=== PATIENT | female | born 1995 | race Caucasian/White ===

== ENCOUNTER 2017-01-22 13:14 | Emergency (ER) | payer OTHER ==
[~2017-01-22] VITALS: Ht 165.1 cm; Wt 71.7 kg
[~2017-01-22 13:14] MED LIST: BIRTH CONTROL; CIPR500T78 PO; CYCL5TAB PO; METR500T PO; NAPR550T PO; SYNTHROID PO; TRAM50TA2 PO; VENL75CA PO
--- NOTE | 2017-01-22 13:38 | ED Neck-Back Pain/Injury ---
General Chief Complaint: Head/Cervical Problems Stated Complaint: NECK AND BACK PAIN/STIFFNESS,HANDS TINGLING Nursing Triage Note: Pt was "headbanging" last night when listening to heavy metal music. This morning patient noticed increased neck/back tightness and patient. She noticed tingling in hands while at work today. Nursing Sepsis Screen: No Definite Risk Source of Information: Patient Exam Limitations: No Limitations History of Present Illness Time Seen by Provider: 13:38 Initial Comments 21-year-old female patient presents to the emergency department with complaints of neck pain beginning last night while headache beginning at a heavy metal concerns. Reports today feels like she cannot hold her head up. Has increased pain in the neck with muscle tension in the shoulders and upper back. Denies taking Tylenol or ibuprofen today. Reports earlier at work she had an episode of severe neck pain. States she then had tingling of the hands which has resolved completely. Location: C-Spine Timing/Duration: 12-24 Hours Pain/Injury Location: Neck Method of Injury: Other ("headbanging") Modifying Factors: Improves With Immobilization, Worse With Movement Associated Symptoms: muscle spasms, No numbness in legs/feet, No tingling in legs/feet, No sensory/motor loss, No lower back pain, No loss of bladder control , No loss of bowel control Allergies and Home Medications Allergies Coded Allergies: No Known Drug Allergies (Unverified , 09/18/14) Home Medications Cyclobenzaprine HCl 5 Mg Tablet, 5 MG PO Q8H PRN for SPASMS, #14 Ref 0 Prescribed by: HIPOLITO ALBARADO on 12/06/151808 Cyclobenzaprine HCl 10 Mg Tablet, 10 MG PO Q8H PRN for SPASMS, #9 Ref 0 Prescribed by: HIPOLITO ALBARADO on 01/22/171426 Ibuprofen 800 Mg Tablet, 800 MG PO Q8H PRN for PAIN, #20 Ref 0 Prescribed by: HIPOLITO ALBARADO on 01/22/171426 Prednisone 20 Mg Tab, 40 MG PO DAILY, #10 Ref 0 Prescribed by: HIPOLITO ALBARADO on 01/22/171426 Tramadol HCl 50 Mg Tablet, 50 MG PO Q4H PRN for PAIN, #1 Ref 0 Prescribed by: HIPLOITO ALBARADO on 12/06/151808 Venlafaxine HCl 75 Mg Cap.er.24h, 75 MG PO DAILY, (Reported) [ Control] , (Reported) [Synthroid] , 0.25 MCG PO DAILY, (Reported) Constitutional: No diaphoresis, No dizziness, No weakness EENTM: no symptoms reported Respiratory: No cough, No short of breath Cardiovascular: No chest pain, No palpitations, No syncope Gastrointestinal: no symptoms reported Genitourinary: no symptoms reported : No LMP: January 19, 2017 Musculoskeletal: see HPI Skin: no symptoms reported Psychiatric/Neurological: See HPI, Denies Headache, Denies Numbness, Denies Paresthesia, Denies Seizure, Tingling (bilateral hands), Denies Weakness All Other Systems Reviewed Negative Unless Noted: Yes (Negative excepted noted.) Past Nufnces-Cffejd-Bwvkdc Hx Patient Social History Alcohol Use: Rarely Uses Recreational Drug Use: No Smoking Status: Current Everyday Smoker Recent Foreign Travel: No Contact w/Someone Who Travel: No Recent Infectious Disease Expo: No Immunizations Up To Date Tetanus Booster (TDap): Less than 5yrs Surgeries HX Surgeries: Yes Surgeries: Adenoidectomy, Tonsillectomy Respiratory Hx Respiratory Disorders: No Cardiovascular Hx Cardiac Disorders: No Neurological Hx Neurological Disorders: No Reproductive System : No Hx : 1 Hx Para: 0 Hx Total # of Abortions (Spona: 1 Hx Reproductive Disorders: No Sexually Transmitted Disease: No Female Reproductive Disorders: Denies Genitourinary Hx Genitourinary Disorders: No Gastrointestinal Hx Gastrointestinal Disorders: No Musculoskeletal Hx Musculoskeletal Disorders: No Endocrine Hx Endocrine Disorders: Yes Endocrine Disorders: Hypothyroidsim HEENT HX ENT Disorders: No Cancer Hx Cancer: No Psychosocial Hx Psychiatric Problems: Yes Behavioral Health Disorders: Anxiety, Depression Integumentary HX Skin/Integumentary Disorder: No Blood Transfusions Hx Blood Disorders: No Adverse Reaction to a Blood Tr: No Reviewed Nursing Assessment Reviewed/Agree w Nursing PMH: Yes Family Medical History Significant Family History: No Pertinent Family Hx Physical Exam Vital Signs Vital Sign - Last 12Hours 01/22/17 13:29 Temp 97.5 Pulse 70 Resp 16 B/P (MAP) 143/98 Pulse Ox 98 O2 Delivery Room Air Capillary Refill : Less Than 3 Seconds General Appearance: No Apparent Distress, WD/WN HEENT: PERRL/EOMI, Pharynx Normal Neck: Normal Inspection, Supple, Limited Range of Motion, Tender Lateral, Tender Midline Cardiovascular: Regular Rate, Rhythm, No Edema, No Murmur, Normal Peripheral Pulses Respiratory: Lungs Clear, Normal Breath Sounds, No Respiratory Distress Peripheral Pulses: 2+ Dorsalis Pedis (R), 2+ Left Dors-Pedis (L), 2+ Radial Pulses (R), 2+ Radial Pulses (L) Gastrointestinal: Non Tender, Soft, No Distended Back: Normal Inspection, No Vertebral Tenderness, Muscle Spasm ((bilateral upper back)) Extremity: Normal Capillary Refill, Normal Inspection, Normal Range of Motion, Non Tender Neurologic/Psychiatric: Alert, Oriented x3, No Motor/Sensory Deficits, Normal 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, 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 Intervertebral disc space heights are well-maintained. No evidence of traumatic disc herniation by non- myelogram CT. No foci of high-grade spinal stenosis or neuroforaminal narrowing in the cervical spine. No cervical lymphadenopathy. Numerous bilateral conspicuous but nonenlarged cervical lymph nodes are likely reactive in nature, especially in a patient of this age. Normal thyroid. Lung apices are clear. Impression: 1. Normal cervical spine CT. Dictated on workstation # [id number] Reviewed: Reviewed by Me (radiology report reviewed by me.) Departure Communication Progress Notes Diagnostic findings discussed with the patient. Discharge to home. Patient ambulated from the emergency department without difficulty. Impression Impression: Primary Impression: Neck sprain Qualified Codes: S13.9XXA - Sprain of joints and ligaments of unspecified parts of neck, initial encounter Disposition: 01 HOME, SELF-CARE Condition: Improved Departure-Patient Inst. Decision time for Depature: 14:23 Referrals: NO,LOCAL PHYSICIAN (PCP/Family) Primary Care Physician Patient Instructions: Neck Sprain (DC) Add. Discharge Instructions: All discharge instructions reviewed with patient and/or family. Voiced understanding. Medications as instructed. Tylenol extra strength for the counter as directed for pain. Ice pack for 20 minute intervals as needed for pain for 2-3 days, then a heating pad or pack as needed. Avoid hyperextending the neck for 5-7 days, then increase activity slowly. Follow-up with your family practitioner if no improvement in symptoms in 7-10 days. Return to the emergency department for worsened pain, numbness, weakness, changes in behavior , slurred speech, bowel incontinence, bladder incontinence, or any other concerns. 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
[2017-01-22] MEDS ORDERED: ORPHENADRINE 60 MG/2 ML (NORFLEX) AMP IM STA (13:47)
[2017-01-22] MEDS ORDERED: KETOROLAC 60 MG/2 ML VIAL IM STA (13:47)
--- NOTE | 2017-01-22 14:11 | Diagnostic Imaging Report ---
PROCEDURE: CT cervical spine without contrast. TECHNIQUE: Multiple contiguous axial images were obtained through the cervical spine without the use of intravenous contrast. Sagittal and coronal reformations were then performed. INDICATION: Neck pain. Comparison: 12/06/2015. Findings: No fracture or traumatic malalignment. Intervertebral disc space heights are well-maintained. No evidence of traumatic disc herniation by non-myelogram CT. No foci of high-grade spinal stenosis or neuroforaminal narrowing in the cervical spine. No cervical lymphadenopathy. Numerous bilateral conspicuous but nonenlarged cervical lymph nodes are likely reactive in nature, especially in a patient of this age. Normal thyroid. Lung apices are clear. Impression: 1. Normal cervical spine CT. Dictated by: Dictated on workstation # [id number]
[2017-01-22] MEDS ORDERED: PRD20T PO (14:27)
[2017-01-22] MEDS ORDERED: IBUP-1780 PO (14:27)
[2017-01-22] MEDS ORDERED: CYCL10TA9 PO (14:27)
[2017-01-22 15:00] VITALS: BP 112/70
== END 2017-01-22 15:00 | disposition home or self-care (01) ==
LOC: EDUNIT# 13:14 → ER 13:16
DX: S13.9XXA Sprain of joints and ligaments of unspecified parts of neck, initial encounter (principal); F17.210 Nicotine dependence, cigarettes, uncomplicated; X50.3XXA Overexertion from repetitive movements, initial encounter; Y92.252 Music hall as the place of occurrence of the external cause; Y99.8 Other external cause status
CPT/HCPCS: 72125; 99282

== ENCOUNTER 2017-10-16 16:09 | Outpatient (CLI) | payer MEDICAID ==
[~2017-10-16] VITALS: Ht 162.6 cm; Wt 88.5 kg
[~2017-10-16 16:09] MED LIST changes: +CYCL10TA9 PO; +IBUP-1780 PO; +PRD20T PO
[2017-10-16 16:40] VITALS: BP 120/61
[2017-10-16] MEDS ORDERED: PREN1TAB86 PO (17:01)
[2017-10-16 17:20] LABS: BILIRUBIN,URINE NEGATIVE (NEGATIVE); CLARITY,URINE SLIGHTLY CLOUDY; COLOR,URINE YELLOW; GLUCOSE, URINE (UA) NEGATIVE (NEGATIVE); KETONES,URINE NEGATIVE (NEGATIVE); LEUKOCYTE ESTERASE ,URINE 1+ (NEGATIVE); NITRITE,URINE NEGATIVE (NEGATIVE); PH,URINE 6 (5-9); PROTEIN,URINE NEGATIVE (NEGATIVE); UROBILINOGEN,URINE NORMAL (NORMAL)
[2017-10-16 17:23] LABS: BACTERIA,URINE NEGATIVE /HPF; RBC,URINE RARE /HPF; WBC,URINE RARE /HPF
[2017-10-16 17:24] LABS: AMPHETAMINE SCREEN, URINE NEGATIVE (NEGATIVE); BARBITURATE SCREEN URINE NEGATIVE (NEGATIVE); BENZODIAZEPINES SCREEN URINE NEGATIVE (NEGATIVE); CANNABINOID SCREEN, URINE POSITIVE (NEGATIVE); COCAINE SCREEN URINE NEGATIVE (NEGATIVE); METHADONE STAT NEGATIVE (NEGATIVE); METHAMPHETAMINE SCREEN URINE S NEGATIVE (NEGATIVE); OPIATE SCREEN URINE NEGATIVE (NEGATIVE); OXYCODONE STAT NEGATIVE (NEGATIVE); PROPOXYPHENE STAT NEGATIVE (NEGATIVE); TRICYCLIC ANTIDEPRESSANTS SCRE NEGATIVE (NEGATIVE)
[2017-10-16] MEDS ORDERED: INFLUENZA TRIvalent 2017-2018 0.5 ML/45 MCG SYR IM ONE (17:30)
--- NOTE | 2017-10-17 15:01 | Physician Query-Final Dx ---
UMU SERRATO 10/17/17 1501: Clinic Account Progress/Dx Physician Query: Please give diagnosis Date of Service Oct 16, 2017 at 16:09 VIGNESH ACHARYA DO 10/18/17 0141: Clinic Account Progress/Dx DIAGNOSIS: Diagnosis Threatened labor UMU SERRATO Oct 17, 2017 15:01 VIGNESH ACHARYA DO Oct 18, 2017 01:41
== END 2017-10-16 17:25 | disposition home or self-care (01) ==
LOC: WSo 16:09 → LDRP 16:18 → WSo 17:25
PROVIDERS: ATTEND Family Medicine
DX: O60.02 Preterm labor without delivery, second trimester (principal); Z3A.27 27 weeks gestation of pregnancy
CPT/HCPCS: 80306; 81000; 87088; 99212

== ENCOUNTER 2017-11-11 20:54 | Outpatient (CLI) | payer MEDICAID ==
[~2017-11-11] VITALS: Ht 162.6 cm; Wt 90.4 kg
[~2017-11-11 20:54] MED LIST changes: +PREN1TAB86 PO
[2017-11-11 21:34] LABS: BILIRUBIN,URINE NEGATIVE (NEGATIVE); CLARITY,URINE CLEAR; COLOR,URINE YELLOW; GLUCOSE, URINE (UA) NEGATIVE (NEGATIVE); KETONES,URINE NEGATIVE (NEGATIVE); LEUKOCYTE ESTERASE ,URINE 1+ (NEGATIVE); NITRITE,URINE NEGATIVE (NEGATIVE); PH,URINE 6.5 (5-9); PROTEIN,URINE 1+ (NEGATIVE); UROBILINOGEN,URINE NORMAL (NORMAL)
[2017-11-11 21:44] LABS: BACTERIA,URINE FEW /HPF; SQUAMOUS EPITHELIAL CELL,UR >50 /HPF
[2017-11-11 22:00] VITALS: BP 128/71
[2017-11-11 22:09] LABS: AMPHETAMINE SCREEN, URINE NEGATIVE (NEGATIVE); BARBITURATE SCREEN URINE NEGATIVE (NEGATIVE); BENZODIAZEPINES SCREEN URINE NEGATIVE (NEGATIVE); CANNABINOID SCREEN, URINE NEGATIVE (NEGATIVE); COCAINE SCREEN URINE NEGATIVE (NEGATIVE); METHADONE STAT NEGATIVE (NEGATIVE); METHAMPHETAMINE SCREEN URINE S NEGATIVE (NEGATIVE); OPIATE SCREEN URINE NEGATIVE (NEGATIVE); OXYCODONE STAT NEGATIVE (NEGATIVE); PROPOXYPHENE STAT NEGATIVE (NEGATIVE); TRICYCLIC ANTIDEPRESSANTS SCRE NEGATIVE (NEGATIVE)
[2017-11-11] MEDS ORDERED: RANI150T11 (23:16)
[2017-11-11] MEDS ORDERED: FERR-84 (23:16)
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
== END 2017-11-11 22:27 | disposition designated cancer center or children's hospital (05) ==
LOC: WSo 20:54 → LDRP 20:55 → WSo 22:27
PROVIDERS: ATTEND Family Medicine
DX: O9A.313 Physical abuse complicating pregnancy, third trimester (principal); R55 Syncope and collapse; Y07.03 Male partner, perpetrator of maltreatment and neglect; Z3A.29 29 weeks gestation of pregnancy
CPT/HCPCS: 80306; 81000; 87088; 99213

== ENCOUNTER 2017-11-11 22:30 | Observation (INO) | payer MEDICAID ==
[~2017-11-11] VITALS: Ht 162.6 cm; Wt 90.4 kg
--- OUTSIDE RECORDS SUMMARY | 2017-11-11 22:36 | XMS REPORT ---
Author Author Kang Staley [facility] Address [address] [place], [place] [id number] Care Team Providers Care Water Pump Operator Name Role Phone Kang Staley PCP Allergies and Adverse Reactions Name Reaction Notes NO KNOWN DRUG ALLERGIES Plan of Treatment Planned Activity Comments Planned Date Planned Time Plan/Goal Ob Limited Sono 11/23/2017 12:00 AM RUQ US (right upper quadrant ultrasound) 11/02/2017 12:00 AM CMP 11/02/2017 12:00 AM Lipase ser 11/02/2017 12:00 AM Amylase measurement 11/02/2017 12:00 AM Medications Active Name Start Date Estimated Completion Date SIG Comments Vitamin oral tablet take 1 tablet by oral route once daily Name Start Date Expiration Date SIG Comments Keflex 500 mg oral capsule 12/21/2009 12/31/2009 take 1 capsule (500 mg) by oral route 2 times a day for 10 days Augmentin 875-125 mg oral tablet 07/02/2012 07/09/2012 take 1 tablet by oral route every 12 hours for 7 days albuterol sulfate 90 mcg/actuation inhalation HFA aerosol inhaler 10/25/2012 inhale 1 puff (90 mcg/Actuation) by inhalation route every 4 hours Bactrim DS 800-160 mg oral tablet 03/04/2013 03/14/2013 take 1 tablet by oral route every 12 hours for 10 days Mobic 7.5 mg oral tablet 05/06/2013 05/20/2013 take 1 tablet (7.5 mg) by oral route once daily for 14 days Gianvi (28) 3-0.02 mg oral tablet 09/24/2013 08/26/2014 TAKE 1 TABLET BY MOUTH EVERY DAY amoxicillin 500 mg oral capsule 09/26/2013 10/03/2013 take 1 capsule (500 mg) by oral route 3 times per day for 7 days Flagyl 500 mg oral tablet 03/10/2015 03/24/2015 take 1 tablet (500 mg) by oral route 2 times per day for 14 days Augmentin 875-125 mg oral tablet 04/05/2015 04/12/2015 take 1 tablet by oral route every 12 hours x 7 days Augmentin 875-125 mg oral tablet 05/24/2015 06/03/2015 take 1 tablet by oral route every 12 hours for 10 days Discontinued Name Start Date Discontinued Date SIG Comments Beyaz 3-0.02-0.451 mg (24) oral tablet 07/25/2011 10/20/2011 take 1 tablet by oral route once daily for 28 days fluoxetine 20 mg oral capsule 03/14/2013 04/09/2013 take 1 capsule daily Bactroban 2 % topical ointment 03/04/2013 01/29/2014 apply a small amount to the affected area by topical route 2 times per day Zoloft 25 mg oral tablet 04/09/2013 01/29/2014 take 1 tablet (25 mg) by oral route once daily Medrol (Rio) 4 mg oral tablets,dose pack 09/26/2013 01/29/2014 take as directed betamethasone valerate 0.1 % topical ointment 07/08/2014 03/10/2015 apply a thin layer to the affected area(s) by topical route once daily Vestura (28) 3-0.02 mg oral tablet 08/15/2014 TAKE 1 TABLET BY MOUTH EVERY DAY Synthroid 25 mcg oral tablet 02/05/2015 03/10/2015 TAKE 1 TABLET (25 MCG) BY ORAL ROUTE ONCE DAILY FOR 30 DAYS ceftriaxone 250 mg injection recon soln 03/10/2015 03/13/2015 inject 250 mg by intramuscular route as a single dose for 1 day doxycycline hyclate 100 mg oral tablet 03/10/2015 03/13/2015 take 1 tablet ( 100 mg) by oral route every 12 hours for 14 days Synthroid 25 mcg oral tablet 08/01/2017 take 1 tablet (25 mcg) by oral route once daily Vestura (28) 3-0.02 mg oral tablet 07/20/2015 TAKE 1 TABLET BY MOUTH EVERY DAY Vestura (28) 3-0.02 mg oral tablet 01/27/2016 08/01/2017 TAKE 1 TABLET BY MOUTH EVERY DAY Problem List Description Status Onset Asthma Active Vital Signs Date Time BP-Sys(mm[Hg] BP-Awa(mm[Hg]) HR(bpm) RR(rpm) Temp WT HT HC BMI BSA BMI Percentile O2 Sat(%) 08/01/2017 2:59:00 PM 118 mmHg 76 mmHg 83 bpm 98.6 F 180.5 lbs 64 in 30.98 kg/m2 1.92 m2 05/24/2015 1:39:00 PM 93 bpm 20 rpm 98.1 F 167 lbs 100 % 04/05/2015 2:12:00 PM 120 mmHg 90 mmHg 85 bpm 16 rpm 98 F 64 in 99 % 03/10/2015 4:12:00 PM 92 mmHg 60 mmHg 88 bpm 20 rpm 97.2 F 156 lbs 64 in 26.78 kg/m2 1.79 m2 86.9 % 07/29/2014 3:26:00 PM 104 mmHg 60 mmHg 83 bpm 16 rpm 97.1 F 151.5 lbs 64 in 26.0046 kg/m 1.7616 m 85.1 % 100 % 07/08/2014 3:40:00 PM 130 mmHg 80 mmHg 90 bpm 16 rpm 97.4 F 149 lbs 64 in 25.58 kg/m2 1.75 m2 83.4 % 98 % 03/19/2014 8:13:00 AM 100 mmHg 74 mmHg 84 bpm 18 rpm 97.6 F 146.4 lbs 64 in 25.1292 kg/m 1.7317 m 81.9 % 100 % 01/29/2014 2:05:00 PM 100 mmHg 68 mmHg 78 bpm 18 rpm 98.3 F 148.4 lbs 64 in 25.47 kg/m2 1.74 m2 83.7 % 99 % 09/26/2013 9:49:00 AM 118 mmHg 68 mmHg 68 bpm 16 rpm 97.2 F 147 lbs 64 in 25.2322 kg/m 1.7352 m 83.3 % 100 % 09/24/2013 2:56:00 PM 110 mmHg 70 mmHg 89 bpm 16 rpm 98.8 F 144 lbs 98 % 06/08/2013 8:54:00 AM 132 mmHg 78 mmHg 82 bpm 18 rpm 96.9 F 150 lbs 64 in 25.7472 kg/m 1.7528 m 86 % 05/22/2013 11:19:00 AM 98 mmHg 62 mmHg 73 bpm 18 rpm 97.9 F 152.4 lbs 64 in 26.16 kg/m2 1.77 m2 87.5 % 98 % 05/06/2013 4:26:00 PM 71 bpm 18 rpm 98.2 F 150.25 lbs 65.5 in 24.6224 kg/m 1.7747 m 81.2 % 98 % 04/09/2013 8:07:00 AM 98 mmHg 70 mmHg 73 bpm 18 rpm 97.4 F 146 lbs 65.5 in 23.93 kg/m2 1.75 m2 77.3 % 99 % 03/04/2013 8:37:00 AM 102 mmHg 64 mmHg 74 bpm 18 rpm 98 F 145 lbs 65.5 in 23.762 kg/m 1.7434 m 76.5 % 100 % 10/17/2012 3:55:00 PM 100 mmHg 60 mmHg 76 bpm 16 rpm 97.4 F 136.25 lbs 65.5 in 22.33 kg/m2 1.69 m2 66.4 % 99 % 09/03/2012 3:42:00 PM 78 bpm 18 rpm 98.2 F 136 lbs 64 in 23.3441 kg/m 1.669 m 75.2 % 100 % 08/14/2012 1:10:00 PM 100 mmHg 60 mmHg 78 bpm 16 rpm 97.9 F 136.375 lbs 99 % 07/17/2012 2:49:00 PM 102 mmHg 68 mmHg 75 bpm 18 rpm 98.5 F 137.2 lbs 64 in 23.5501 kg/m 1.6764 m 77.1 % 96 % 07/02/2012 1:58:00 PM 122 mmHg 76 mmHg 74 bpm 16 rpm 98.4 F 132.125 lbs 98 % 05/28/2012 10:34:00 AM 110 mmHg 70 mmHg 72 bpm 16 rpm 97.4 F 134.375 lbs 65 in 22.3609 kg/m 1.6719 m 68.3 % 98 % 04/23/2012 9:36:00 AM 100 mmHg 60 mmHg 89 bpm 18 rpm 97 F 135 lbs 64 in 23.17 kg/m2 1.66 m2 75.3 % 100 % 07/25/2011 4:17:00 PM 105 mmHg 71 mmHg 80 bpm 97.9 F 135 lbs 64 in 23.1725 kg/m 1.6629 m 78 % 03/19/2010 8:13:00 AM 120 mmHg 62 mmHg 76 bpm 18 rpm 98.4 F 127.4 lbs 63.5 in 22.21 kg/m2 1.61 m2 77.1 % 12/21/2009 4:06:00 PM 110 mmHg 64 mmHg 70 bpm 16 rpm 97.8 F 128.375 lbs 63 in 22.7404 kg/m 1.6088 m 81.5 % Social History Name Description Comments Single Exercises regularly Lives with Mom Alcohol Never Tobacco Former smoker Quit 01/2017 History of Procedures Date Ordered Description Order Status 07/17/2012 12:00 AM STREP A ASSAY W/OPTIC Reviewed 07/17/2012 12:00 AM PARTICLE AGGLUT ANTBDY SCRN Reviewed 09/04/2017 12:00 AM OB US >/=14 WKS SNGL FETUS Reviewed 08/01/2017 12:00 AM SPECIMEN HANDLING OFFICE-LAB Reviewed 08/01/2017 12:00 AM US PREG UTERUS REAL TIME W/IMAGE DCMTN TRANSVAG Reviewed 09/04/2017 12:00 AM ASSAY THYROID STIM HORMONE Reviewed 09/04/2017 12:00 AM ASSAY OF FREE THYROXINE Reviewed 09/20/2017 12:00 AM Consult/Referral Reviewed 01/29/2014 12:00 AM COMPLETE CBC W/AUTO DIFF WBC Reviewed 01/29/2014 12:00 AM COMPREHEN METABOLIC PANEL Reviewed 01/29/2014 12:00 AM ASSAY THYROID STIM HORMONE Reviewed 01/29/2014 12:00 AM VITAMIN B-12 Reviewed 03/19/2014 12:00 AM ASSAY THYROID STIM HORMONE Reviewed 07/08/2014 12:00 AM FLU VAC NO PRSV 4 KALEB 3 YRS+ Reviewed 07/08/2014 12:00 AM IM ADMIN 1ST/ONLY COMPONENT Reviewed 07/08/2014 12:00 AM TETANUS VACCINE IM Reviewed 07/29/2014 12:00 AM ASSAY THYROID STIM HORMONE Reviewed 07/29/2014 12:00 AM PRE SALES TECHNICAL ENGINEER Consult Reviewed 03/10/2015 12:00 AM CHLAMYDIA CULTURE Reviewed 03/10/2015 12:00 AM N.GONORRHOEAE DNA AMP PROB Reviewed 03/10/2015 12:00 AM DETECT AGENT NOS DNA AMP Reviewed Results Summary Date and Description Results 07/17/2012 3:32 PM MONO TEST POSITIVE STREP SCREEN NEGATIVE 01/30/2014 8:22 AM WBC 6.0 RBC 4.78 HGB 14.40 g/dLHCT 41.40 %MCV 87.0 fLMCH 30.10 pgMCHC 34.80 g/dLRDW SD 40 RDW CV 12.60 %MPV 11.0 fLPLT 244 NRBC# 0.00 NRBC% 0.0 %NEUT 43.70 %%LYMP 46.40 %%MONO 8.90 %%EOS 0.80 %%BASO 0.20 %#NEUT 2.64 #LYMP 2.80 #MONO 0.54 #EOS 0.05 #BASO 0.01 MANUAL DIFF NOT IND GLUCOSE 89.0 mg/dLSODIUM 140.0 mmol/LPOTASSIUM 4.0 mmol/LCHLORIDE 109.0 mmol/LCO2 20.0 mmol/LBUN 10.0 mg/dLCREATININE 0.80 mg/dLSGOT/AST 23.0 IU/LSGPT/ALT 18.0 IU/ LALK PHOS 44.0 IU/LTOTAL PROTEIN 7.10 g/dLALBUMIN 3.90 g/dLTOTAL BILI 0.30 mg/ dLCALCIUM 9.20 mg/dLAGE 18 GFR NonAA 93 GFR AA 113 eGFR 60 eGFR AA* 60 VITAMIN B12 238.0 pg/mLTSH 4.350 uIU/mL 09/04/2017 2:55 PM FREE T4 0.74 TSH 1.440 uIU/mL History Of Immunizations Name Date Admin Mfg Name Mfg Code Trade Name Lot# Route Inj Vis Given Vis Pub CVX Influenza 07/08/2014 sanofi pasteur PMC Fluzone Quadrivalent [id number] Intramuscular Left Deltoid 07/08/2014 04/15/2014 141 History of Past Illness Name Date of Onset Comments Chest Pain Dec 21 2009 4:11PM Asthma Sports Physical Mar 19 2010 8:15AM Asthma Mar 19 2010 8:15AM Depression Anxiety Hypothyroidism Menorrhagia Jul 25 2011 4:19PM Contraception, Oral Prescription Jul 25 2011 4:19PM Emotional Disturbance - Anger Apr 23 2012 9:40AM Anxiety Disorder May 28 2012 10:42AM Depressive Disorder May 28 2012 10:42AM Anxiety Disorder Jul 02 2012 2:01PM Depressive Disorder Jul 02 2012 2:01PM Otitis Media, Acute Jul 02 2012 2:01PM Acute Pharyngitis Jul 17 2012 2:53PM Lymph Nodes, Enlarged Jul 17 2012 2:53PM Fatigue Jul 17 2012 2:53PM Anxiety Disorder Aug 14 2012 1:12PM Depressive Disorder Aug 14 2012 1:12PM Mononucleosis, Infectious Improving Aug 14 2012 1:12PM Abdominal Pain, LUQ Sep 03 2012 3:44PM Mononucleosis (resolving) Sep 03 2012 3:44PM Anxiety Disorder Oct 17 2012 3:57PM Depressive Disorder Oct 17 2012 3:57PM Resolved Mononucleosis, Infectious Improving Oct 17 2012 3:57PM Folliculitis Mar 04 2013 8:40AM Sports Physical Apr 09 2013 8:10AM Depression and anxiety Apr 09 2013 8:10AM TMJ, Temporomandibular joint disorder May 06 2013 4:29PM Depression and anxiety May 22 2013 11:22AM Costochondritis Jun 08 2013 11:02AM Family Planning Sep 24 2013 2:58PM Upper Respiratory Infection Sep 26 2013 9:53AM Hair Loss Jan 29 2014 2:06PM Weight Gain Jan 29 2014 2:06PM Fatigue Jan 29 2014 2:06PM General medical examination; routine general medical examination at a health care facility Jan 29 2014 2:06PM Hypothyroidism Mar 19 2014 8:16AM Flu Jul 08 2014 3:42PM Acute dermatitis Jul 08 2014 3:42PM Hypothyroidism, Acquired Jul 29 2014 3:31PM Contraceptive management Jul 29 2014 3:31PM Postcoital Bleeding Mar 10 2015 4:18PM Vaginitis/Vulvitis, NOS Mar 10 2015 4:18PM Maxillary Sinusitis, Acute Apr 05 2015 2:14PM Acute Pharyngitis Apr 05 2015 2:14PM Cough Apr 05 2015 2:14PM Diarrhea Apr 05 2015 2:14PM Weak Apr 05 2015 2:14PM Otitis media of left ear May 24 2015 1:40PM Normal first confirmed, currently in second trimester Aug 01 2017 3 :12PM Encntr for suprvsn of normal first preg, second trimester Aug 01 2017 3:04PM Normal first confirmed, second trimester Sep 04 2017 2:22PM Endocrine, nutritional and metabolic diseases complicating , second trimester Sep 04 2017 2:22PM Hypothyroidism, unspecified Sep 04 2017 2:22PM Absence of umbilical artery Sep 20 2017 11:39AM Single umbilical artery affecting management of mother in [place] , antepartum Oct 12 2017 10:30AM Primigravida in second trimester Oct 12 2017 10:30AM Right upper quadrant abdominal pain Nov 02 2017 10:08AM Encounter for care in second trimester of first Nov 02 2017 10:08AM Normal first confirmed, second trimester Nov 02 2017 10:13AM Right upper quadrant abdominal pain Nov 02 2017 10:13AM Payers Insurance Name Company Name Plan Name Plan Number Policy Number Policy Group Number [facility] [id number] N/A [facility] [id number] Monday, 2009 [facility] [id number] N/A History of Encounters Visit Date Visit Type Provider 10/17/2017 Hospital Kang Staley MD 10/12/[address] Teodora Vazquez MD 09/15/[address] Teodora Vazquez MD 09/04/[address] Teodora Vazquez MD 08/01/[address] Teodora Vazquez MD 05/24/2015 Office visit Lexie Lee FINANCIAL SALES ADVISOR 04/05/2015 Office visit Michelle Glover FINANCIAL SALES ADVISOR 03/10/2015 Office visit Feli Reid FINANCIAL SALES ADVISOR 07/29/2014 Office visit Carole Reddy FINANCIAL SALES ADVISOR 07/08/2014 Office visit 07/08/2014 Office visit Jamar Cornelius FINANCIAL SALES ADVISOR 03/19/2014 Office visit Carole Reddy FINANCIAL SALES ADVISOR 01/29/2014 Office visit Carole Reddy FINANCIAL SALES ADVISOR 09/26/2013 Voided Jamar Cornelius FINANCIAL SALES ADVISOR 09/26/2013 Office visit Jamar Cornelius FINANCIAL SALES ADVISOR 09/24/2013 Office visit Jamar Cornelius FINANCIAL SALES ADVISOR 06/08/2013 Office visit Kang Morgan FINANCIAL SALES ADVISOR 06/08/2013 Voided Kang Morgan FINANCIAL SALES ADVISOR 05/22/2013 Office visit Carole Reddy FINANCIAL SALES ADVISOR 05/06/2013 Office visit Jamar Cornelius FINANCIAL SALES ADVISOR 04/09/2013 Office visit Carole Reddy FINANCIAL SALES ADVISOR 03/04/2013 Office visit Carole Reddy FINANCIAL SALES ADVISOR 10/17/2012 Office visit Sherry Domínguez MD 09/03/2012 Office visit Carole Reddy FINANCIAL SALES ADVISOR 08/14/2012 Office visit Sherry Domínguez MD 07/17/2012 Office visit Carole Reddy FINANCIAL SALES ADVISOR 07/02/2012 Office visit Sherry Domínguez MD 05/28/2012 Office visit Sherry Domínguez MD 04/23/2012 Office visit Trinity Torre MD 07/25/2011 Office visit Sanford Soto MD 03/19/2010 Office visit Trinity Torre MD 12/21/2009 Office visit Sherry Domínguez MD
--- OUTSIDE RECORDS SUMMARY | 2017-11-11 22:37 | XMS REPORT ---
Author Author Teodora Vazquez [facility] Address [address] [place], [place] [id number] Care Team Providers Care Software Quality Assurance Engineer Name Role Phone Teodora Vazquez PCP Allergies and Adverse Reactions Name Reaction Notes NO KNOWN DRUG ALLERGIES Plan of Treatment Planned Activity Comments Planned Date Planned Time Plan/Goal Ob Limited Sono 11/23/2017 12:00 AM CMP 11/02/2017 12:00 AM Lipase ser 11/02/2017 12:00 AM Amylase measurement 11/02/2017 12:00 AM RUQ US (right upper quadrant ultrasound) 11/02/2017 12:00 AM 1 hour glucose tolerance test 11/06/2017 12:00 AM CBC + platelets + diff auto 11/06/2017 12:00 AM FERRITIN 11/06/2017 12:00 AM TSH 11/06/2017 12:00 AM T4 FREE 11/06/2017 12:00 AM Medications Active Name Start Date [...] THYROID STIM HORMONE Reviewed 07/29/2014 12:00 AM CLAY STRUCTURE BUILDER AND SERVICER Consult Reviewed 03/10/2015 12:00 AM CHLAMYDIA CULTURE [...] Influenza 07/08/2014 sanofi pasteur PMC Fluzone Quadrivalent [id number] Intramuscular Left Deltoid 07/08/2014 04/15/2014 141 History [...] quadrant abdominal pain Nov 02 2017 10:13AM Normal first confirmed, currently in second trimester Nov 06 2017 10 :51AM Hypertension in , transient, second trimester Nov 06 2017 10:51AM Payers Insurance Name Company Name Plan Name Plan Number Policy Number Policy Group Number Start Date [facility] [id number] N/A [facility] UMR [id number] Monday, 2009 [facility] [id number] N/A History of Encounters Visit Date Visit Type Provider 11/06/[address] Teodora Vazquez MD 10/17/2017 [facility] Kang Staley MD 10/12/[address] Teodora Vazquez MD 09/15/[address] Teodora Vazquez MD 09/04/[address] Teodora Vazquez MD 08/01/[address] Teodora Vazquez MD 05/24/2015 Office visit Lexie Lee SILVICULTURE FORESTER 04/05/2015 Office visit Michelle Glover SILVICULTURE FORESTER 03/10/2015 Office visit Feli Reid SILVICULTURE FORESTER 07/29/2014 Office visit Carole Reddy SILVICULTURE FORESTER 07/08/2014 Office visit 07/08/2014 Office visit Jamar Cornelius SILVICULTURE FORESTER 03/19/2014 Office visit Carole Reddy SILVICULTURE FORESTER 01/29/2014 Office visit Carole Reddy SILVICULTURE FORESTER 09/26/2013 Voided Jamar Cornelius SILVICULTURE FORESTER 09/26/2013 Office visit Jamar Cornelius SILVICULTURE FORESTER 09/24/2013 Office visit Jamar Cornelius SILVICULTURE FORESTER 06/08/2013 Office visit Kang Morgan SILVICULTURE FORESTER 06/08/2013 Voided Kang Morgan SILVICULTURE FORESTER 05/22/2013 Office visit Carole Reddy SILVICULTURE FORESTER 05/06/2013 Office visit Jamar Cornelius SILVICULTURE FORESTER 04/09/2013 Office visit Carole Reddy SILVICULTURE FORESTER 03/04/2013 Office visit Carole Reddy SILVICULTURE FORESTER 10/17/2012 Office visit Sherry Domínguez MD 09/03/2012 Office visit Carole Reddy SILVICULTURE FORESTER 08/14/2012 Office visit Sherry Domínguez MD 07/17/2012 Office visit Carole Reddy SILVICULTURE FORESTER 07/02/2012 Office visit Sherry Domínguez MD 05/28/2012 Office visit Sherry Domínguez MD 04/23/2012 Office visit Trinity Torre MD 07/25/2011 Office visit Sanford Soto MD 03/19/2010 Office visit Trinity Torre MD 12/21/2009 Office visit Sherry Domínguez MD
--- OUTSIDE RECORDS SUMMARY | 2017-11-11 22:38 | XMS REPORT ---
Author Author Teodora Vazquez [facility] Address [address] [place], [place] [id number] Care Team Providers Care Collection Development Librarian Name Role Phone Teodora Vazquez PCP Allergies and Adverse Reactions Name Reaction Notes NO KNOWN DRUG ALLERGIES Plan of Treatment Planned Activity Comments Planned Date Planned Time Plan/Goal Ultrasound, OB complete >14 weeks 09/04/2017 12:00 AM Medications Active Name Start Date [...] 12:00 AM PARTICLE AGGLUT ANTBDY SCRN Reviewed 01/29/2014 12:00 AM COMPLETE CBC W/AUTO [...] THYROID STIM HORMONE Reviewed 07/29/2014 12:00 AM STAMPING MACHINE OPERATOR Consult Reviewed 03/10/2015 12:00 AM CHLAMYDIA CULTURE [...] 60 VITAMIN B12 238.0 pg/mLTSH 4.350 uIU/mL History Of Immunizations Name Date Admin Mfg Name Mfg Code Trade Name Lot# Route Inj Vis Given Vis Pub CVX Influenza 07/08/2014 sanofi pasteur PMC Fluzone Quadrivalent [id number] Intramuscular Left Deltoid 07/08/2014 04/15/2014 141 History [...] second trimester Aug 01 2017 3 :12PM Payers Insurance Name Company Name Plan Name Plan Number Policy Number Policy Group Number Start Date [facility] [id number] [facility] [id number] Monday, 2009 [facility] [id number] N/A History of Encounters Visit Date Visit Type Provider 08/01/[address] Teodora Vazquez MD 05/24/2015 Office visit Lexie Lee FILTER PRESS TENDER 04/05/2015 Office visit Michelle Glover FILTER PRESS TENDER 03/10/2015 Office visit Feli Reid FILTER PRESS TENDER 07/29/2014 Office visit Carole Reddy FILTER PRESS TENDER 07/08/2014 Office visit 07/08/2014 Office visit Jamar Cornelius FILTER PRESS TENDER 03/19/2014 Office visit Carole Reddy FILTER PRESS TENDER 01/29/2014 Office visit Carole Reddy FILTER PRESS TENDER 09/26/2013 Voided Jamar Cornelius FILTER PRESS TENDER 09/26/2013 Office visit Jamar Cornelius FILTER PRESS TENDER 09/24/2013 Office visit Jamar Cornelius FILTER PRESS TENDER 06/08/2013 Office visit Kang Morgan FILTER PRESS TENDER 06/08/2013 Voided Kang Morgan FILTER PRESS TENDER 05/22/2013 Office visit Carole Reddy FILTER PRESS TENDER 05/06/2013 Office visit Jamar Cornelius FILTER PRESS TENDER 04/09/2013 Office visit Carole Reddy FILTER PRESS TENDER 03/04/2013 Office visit Carole Reddy FILTER PRESS TENDER 10/17/2012 Office visit Sherry Domínguez MD 09/03/2012 Office visit Carole Reddy APRN 08/14/2012 Office visit Sherry Domínguez MD 07/17/2012 Office visit Carole Reddy APRN 07/02/2012 Office visit Sherry Domínguez MD 05/28/2012 Office visit Sherry Domínguez MD 04/23/2012 Office visit Trinity Torre MD 07/25/2011 Office visit Sanford Soto MD 03/19/2010 Office visit Trinity Torre MD 12/21/2009 Office visit Sherry Domínguez MD
--- OUTSIDE RECORDS SUMMARY | 2017-11-11 22:38 | XMS REPORT ---
Author Author Teodora Vazquez [facility] Address [address] [place], [place] [id number] Care Team Providers Care Cannoneer Name Role Phone Teodora Vazquez PCP Allergies and Adverse Reactions Name Reaction Notes NO KNOWN DRUG ALLERGIES Plan of Treatment Planned Activity Comments Planned Date Planned Time Plan/Goal Ultrasound, OB complete >14 weeks 09/04/2017 12:00 AM panel (CBC with differential, automated, Hepatitis B surface antigen ( HBsAg), Rubella antibody, RBC antibody screen, Blood typing (ABO and Rh(D), RPR w/ Reflex to TP 08/01/2017 12:00 AM OB Sono - Transvaginal - (Done in Office) 08/01/2017 12:00 AM Medications Active Name Start Date [...] THYROID STIM HORMONE Reviewed 07/29/2014 12:00 AM GOLF CLUB REPAIRER Consult Reviewed 03/10/2015 12:00 AM CHLAMYDIA CULTURE [...] Influenza 07/08/2014 sanofi pasteur PMC Fluzone Quadrivalent [id number] Intramuscular Left Deltoid 07/08/2014 04/15/2014 141 History [...] preg, second trimester Aug 01 2017 3:04PM Payers Insurance Name Company Name Plan Name Plan Number Policy Number Policy Group Number Start Date [facility] [id number] [facility] [id number] Monday, 2009 [facility] [id number] N/A History of Encounters Visit Date Visit Type Provider 08/01/[address] Teodora Vazquez MD 05/24/2015 Office visit Lexie Lee GAS OPERATIONS ANALYST 04/05/2015 Office visit Michelle Glover GAS OPERATIONS ANALYST 03/10/2015 Office visit Feli Reid GAS OPERATIONS ANALYST 07/29/2014 Office visit Carole Reddy GAS OPERATIONS ANALYST 07/08/2014 Office visit 07/08/2014 Office visit Jamar Cornelius GAS OPERATIONS ANALYST 03/19/2014 Office visit Carole Reddy GAS OPERATIONS ANALYST 01/29/2014 Office visit Carole Reddy GAS OPERATIONS ANALYST 09/26/2013 Voided Jamar Cornelius GAS OPERATIONS ANALYST 09/26/2013 Office visit Jamar Cornelius GAS OPERATIONS ANALYST 09/24/2013 Office visit Jamar Cornelius GAS OPERATIONS ANALYST 06/08/2013 Office visit Kang Faith Eddie GAS OPERATIONS ANALYST 06/08/2013 Voided Kang Morgan GAS OPERATIONS ANALYST 05/22/2013 Office visit Carole Reddy GAS OPERATIONS ANALYST 05/06/2013 Office visit Jamar Ashli GAS OPERATIONS ANALYST 04/09/2013 Office visit Carole Reddy GAS OPERATIONS ANALYST 03/04/2013 Office visit Carole Reddy GAS OPERATIONS ANALYST 10/17/2012 Office visit Sherry Domínguez MD 09/03/2012 Office visit Carole Reddy GAS OPERATIONS ANALYST 08/14/2012 Office visit Sherry Domínguez MD 07/17/2012 Office visit Carole Reddy GAS OPERATIONS ANALYST 07/02/2012 Office visit Sherry Domínguez MD 05/28/2012 Office visit Sherry Domínguez MD 04/23/2012 Office visit Trinity Torre MD 07/25/2011 Office visit Sanford Soto MD 03/19/2010 Office visit Trinity Torre MD 12/21/2009 Office visit Sherry Domínguez MD
--- OUTSIDE RECORDS SUMMARY | 2017-11-11 22:39 | XMS REPORT ---
Author Author Teodora Vazquez [facility] Address [address] [place], [place] [phone] Care Team Providers Care Senior Systems Analyst Name Role Phone Teodora Vazquez PCP Allergies and Adverse Reactions Name Reaction Notes NO KNOWN DRUG ALLERGIES Plan of Treatment Planned Activity Comments Planned Date Planned Time Plan/Goal Ob Limited Sono 11/23/2017 12:00 AM Medications Active Name Start Date Estimated Completion Date SIG Comments Vitamin oral tablet take 1 tablet by oral route once daily Zantac 150 mg oral tablet 11/06/2017 take 1 tablet (150 mg) by oral route 2 times per day Name Start Date Expiration Date SIG Comments [...] TAKE 1 TABLET BY MOUTH EVERY DAY Carafate 1 gram oral tablet 11/06/2017 11/06/2017 take 1 tablet (1 gram) by oral route 4 times per day on an empty stomach 1 hour before meals and at bedtime Problem List Description Status Onset Asthma Active [...] THYROXINE Reviewed 09/20/2017 12:00 AM Consult/Referral Reviewed 11/02/2017 12:00 AM COMPREHEN METABOLIC PANEL Returned 11/02/2017 12:00 AM ASSAY OF LIPASE Returned 11/02/2017 12:00 AM ASSAY OF AMYLASE Returned 11/02/2017 12:00 AM ECHO EXAM OF ABDOMEN Returned 11/06/2017 12:00 AM Type and screen Returned 11/06/2017 12:00 AM GLUCOSE TOLERANCE TEST (GTT) Returned 11/06/2017 12:00 AM COMPLETE CBC W/AUTO DIFF WBC Returned 11/06/2017 12:00 AM ASSAY OF FERRITIN Returned 11/06/2017 12:00 AM ASSAY THYROID STIM HORMONE Returned 11/06/2017 12:00 AM ASSAY OF FREE THYROXINE Returned 01/29/2014 12:00 AM COMPLETE CBC W/AUTO DIFF [...] THYROID STIM HORMONE Reviewed 07/29/2014 12:00 AM RATING CLERK Consult Reviewed 03/10/2015 12:00 AM CHLAMYDIA CULTURE [...] Influenza 07/08/2014 sanofi pasteur PMC Fluzone Quadrivalent [id number] Intramuscular Left Deltoid 07/08/2014 04/15/2014 141 History [...] Policy Number Policy Group Number Start Date [facility] [id number] N/A [facility] [id number] Monday, 2009 [facility] [id number] N/A History of Encounters Visit Date Visit Type Provider 11/06/[address] Teodora Vazquez MD 10/17/2017 [facility] Kang Staley MD 10/12/[address] Teodora Vazquez MD 09/15/[address] Teodora Vazquez MD 09/04/[address] Teodora Vazquez MD 08/01/[address] Teodora Vazquez MD 05/24/2015 Office visit Lexie Lee BUS SYSTEM OPERATOR 04/05/2015 Office visit Michelle Glover BUS SYSTEM OPERATOR 03/10/2015 Office visit Feli Reid BUS SYSTEM OPERATOR 07/29/2014 Office visit Carole Reddy BUS SYSTEM OPERATOR 07/08/2014 Office visit 07/08/2014 Office visit Jamar Cornelius BUS SYSTEM OPERATOR 03/19/2014 Office visit Carole Reddy BUS SYSTEM OPERATOR 01/29/2014 Office visit Carole Reddy BUS SYSTEM OPERATOR 09/26/2013 Voided Jamar Cornelius BUS SYSTEM OPERATOR 09/26/2013 Office visit Jamar Cornelius BUS SYSTEM OPERATOR 09/24/2013 Office visit Jamar Reyesran BUS SYSTEM OPERATOR 06/08/2013 Office visit Kang Clementemond BUS SYSTEM OPERATOR 06/08/2013 Voided Kang Morgan BUS SYSTEM OPERATOR 05/22/2013 Office visit Carole Reddy BUS SYSTEM OPERATOR 05/06/2013 Office visit Jamar Cornelius BUS SYSTEM OPERATOR 04/09/2013 Office visit Carole Reddy BUS SYSTEM OPERATOR 03/04/2013 Office visit Carole Reddy BUS SYSTEM OPERATOR 10/17/2012 Office visit Sherry Domínguez MD 09/03/2012 Office visit Carole Reddy BUS SYSTEM OPERATOR 08/14/2012 Office visit Sherry Domínguez MD 07/17/2012 Office visit Carole Reddy BUS SYSTEM OPERATOR 07/02/2012 Office visit Sherry Domínguez MD 05/28/2012 Office visit Sherry Domínguez MD 04/23/2012 Office visit Trinity Torre MD 07/25/2011 Office visit Sanford Soto MD 03/19/2010 Office visit Trinity Torre MD 12/21/2009 Office visit Sherry Domínguez MD
--- OUTSIDE RECORDS SUMMARY | 2017-11-11 22:40 | XMS REPORT ---
Author Author Teodora Vazquez [facility] Address [address] [place], [place] [phone] Care Team Providers Care Cyber Systems Engineer Name Role Phone Teodora Vazquez PCP Allergies and Adverse Reactions Name Reaction Notes NO KNOWN DRUG ALLERGIES Plan of Treatment Planned Activity Comments Planned Date Planned Time Plan/Goal panel (CBC with differential, automated, Hepatitis B surface antigen ( HBsAg), Rubella antibody, RBC antibody screen, Blood typing (ABO and Rh(D), RPR w/ Reflex to TP 08/01/2017 12:00 AM Medications Active Name Start [...] AM OB US >/=14 WKS SNGL FETUS Returned 08/01/2017 12:00 AM SPECIMEN HANDLING OFFICE-LAB Reviewed 08/01/2017 12:00 AM US PREG UTERUS REAL TIME W/IMAGE DCMTN TRANSVAG Reviewed 09/04/2017 12:00 AM ASSAY THYROID STIM HORMONE Returned 09/04/2017 12:00 AM ASSAY OF FREE THYROXINE Returned 09/20/2017 12:00 AM Consult/Referral Reviewed 01/29/2014 12:00 [...] THYROID STIM HORMONE Reviewed 07/29/2014 12:00 AM RIG BUILDER HELPER Consult Reviewed 03/10/2015 12:00 AM CHLAMYDIA CULTURE [...] Influenza 07/08/2014 sanofi pasteur PMC Fluzone Quadrivalent [id number] Intramuscular Left Deltoid 07/08/2014 04/15/2014 141 History [...] of umbilical artery Sep 20 2017 11:39AM Payers Insurance Name Company Name Plan Name Plan Number Policy Number Policy Group Number Start Date [facility] [id number] [facility] [id number] Monday, 2009 [facility] [id number] N/A History of Encounters Visit Date Visit Type Provider 09/15/[address] Teodora Vazquez MD 09/04/[address] Teodora Vazquez MD 08/01/[address] Teodora Vazquez MD 05/24/2015 Office visit Lexiechely Lee CLINICAL TRIALS SYSTEMS ADMINISTRATOR 04/05/2015 Office visit Michelle Glover CLINICAL TRIALS SYSTEMS ADMINISTRATOR 03/10/2015 Office visit Feli Reid CLINICAL TRIALS SYSTEMS ADMINISTRATOR 07/29/2014 Office visit Carole Reddy CLINICAL TRIALS SYSTEMS ADMINISTRATOR 07/08/2014 Office visit 07/08/2014 Office visit Jamar Cornelius CLINICAL TRIALS SYSTEMS ADMINISTRATOR 03/19/2014 Office visit Carole Reddy CLINICAL TRIALS SYSTEMS ADMINISTRATOR 01/29/2014 Office visit Carole Reddy CLINICAL TRIALS SYSTEMS ADMINISTRATOR 09/26/2013 Voided Jamar Cornelius CLINICAL TRIALS SYSTEMS ADMINISTRATOR 09/26/2013 Office visit Jamar Cornelius CLINICAL TRIALS SYSTEMS ADMINISTRATOR 09/24/2013 Office visit Jamar Cornelius CLINICAL TRIALS SYSTEMS ADMINISTRATOR 06/08/2013 Office visit Kang Morgan CLINICAL TRIALS SYSTEMS ADMINISTRATOR 06/08/2013 Voided Kang Morgan CLINICAL TRIALS SYSTEMS ADMINISTRATOR 05/22/2013 Office visit Carole Reddy CLINICAL TRIALS SYSTEMS ADMINISTRATOR 05/06/2013 Office visit Jamar Cornelius CLINICAL TRIALS SYSTEMS ADMINISTRATOR 04/09/2013 Office visit Carole Reddy CLINICAL TRIALS SYSTEMS ADMINISTRATOR 03/04/2013 Office visit Carole Reddy CLINICAL TRIALS SYSTEMS ADMINISTRATOR 10/17/2012 Office visit Sherry Domínguez MD 09/03/2012 Office visit Carole Reddy CLINICAL TRIALS SYSTEMS ADMINISTRATOR 08/14/2012 Office visit Sherry Domínguez MD 07/17/2012 Office visit Carole Reddy CLINICAL TRIALS SYSTEMS ADMINISTRATOR 07/02/2012 Office visit Sherry Domínguez MD 05/28/2012 Office visit Sherry Domínguez MD 04/23/2012 Office visit Tirnity Torre MD 07/25/2011 Office visit Sanford Soto MD 03/19/2010 Office visit Trinity Torre MD 12/21/2009 Office visit Sherry Domínguez MD
--- OUTSIDE RECORDS SUMMARY | 2017-11-11 22:40 | XMS REPORT ---
Author Author Teodora Vazquez [facility] Address [address] [place], [place] [address] Care Team Providers Care Pouncing Lathe Operator Name Role Phone Teodora Vazquez PCP Allergies [...] THYROID STIM HORMONE Reviewed 07/29/2014 12:00 AM FARM BUTCHER Consult Reviewed 03/10/2015 12:00 AM CHLAMYDIA CULTURE [...] Influenza 07/08/2014 sanofi pasteur PMC Fluzone Quadrivalent [id number] Intramuscular Left Deltoid 07/08/2014 04/15/2014 141 History [...] Number Policy Group Number Start Date [facility] [id number] [facility] [id number] Monday, 2009 [facility] [id number] N/A History of Encounters Visit Date Visit Type Provider 08/01/[address] Teodora Vazquez MD 05/24/2015 Office visit Lexie Lee PROFESSOR OF VISUAL ARTS 04/05/2015 Office visit Michelle Glover PROFESSOR OF VISUAL ARTS 03/10/2015 Office visit Feli Reid PROFESSOR OF VISUAL ARTS 07/29/2014 Office visit Carole Reddy PROFESSOR OF VISUAL ARTS 07/08/2014 Office visit 07/08/2014 Office visit Jamar Cornelius PROFESSOR OF VISUAL ARTS 03/19/2014 Office visit Carole Reddy PROFESSOR OF VISUAL ARTS 01/29/2014 Office visit Carole Reddy PROFESSOR OF VISUAL ARTS 09/26/2013 Voided Jamar Cornelius PROFESSOR OF VISUAL ARTS 09/26/2013 Office visit Jamar Cornelius PROFESSOR OF VISUAL ARTS 09/24/2013 Office visit Jamar Cornelius PROFESSOR OF VISUAL ARTS 06/08/2013 Office visit Kang Faith Eddie PROFESSOR OF VISUAL ARTS 06/08/2013 Voided Kang Morgan PROFESSOR OF VISUAL ARTS 05/22/2013 Office visit Carole Reddy PROFESSOR OF VISUAL ARTS 05/06/2013 Office visit Jamar Ashli PROFESSOR OF VISUAL ARTS 04/09/2013 Office visit Carole Reddy PROFESSOR OF VISUAL ARTS 03/04/2013 Office visit Carole Reddy PROFESSOR OF VISUAL ARTS 10/17/2012 Office visit Sherry Domínguez MD 09/03/2012 Office visit Carole Reddy PROFESSOR OF VISUAL ARTS 08/14/2012 Office visit Sherry Domínguez MD 07/17/2012 Office visit Carole Reddy PROFESSOR OF VISUAL ARTS 07/02/2012 Office visit Sherry Domínguez MD 05/28/2012 Office visit Sherry Domínguez MD 04/23/2012 Office visit Trinity Torre MD 07/25/2011 Office visit Sanford Soto MD 03/19/2010 Office visit Trinity Torre MD 12/21/2009 Office visit Sherry Domínguez MD
--- OUTSIDE RECORDS SUMMARY | 2017-11-11 22:41 | XMS REPORT ---
Author Author Teodora Vazquez [facility] Address [address] [place], [place] [id number] Care Team Providers Care Final Expense Agent Name Role Phone Teodora Vazquez PCP Allergies [...] w/ Reflex to TP 08/01/2017 12:00 AM TSH 09/04/2017 12:00 AM T4 FREE 09/04/2017 12:00 AM Medications Active Name Start [...] 12:00 AM PARTICLE AGGLUT ANTBDY SCRN Reviewed 08/01/2017 12:00 AM SPECIMEN HANDLING OFFICE-LAB Reviewed 08/01/2017 12:00 AM US PREG UTERUS REAL TIME W/IMAGE DCMTN TRANSVAG Reviewed 01/29/2014 12:00 AM COMPLETE CBC W/AUTO [...] THYROID STIM HORMONE Reviewed 07/29/2014 12:00 AM COMPUTER CLERK Consult Reviewed 03/10/2015 12:00 AM CHLAMYDIA [...] Influenza 07/08/2014 sanofi pasteur PMC Fluzone Quadrivalent [id number] Intramuscular Left Deltoid 07/08/2014 04/15/2014 141 History [...] 2:22PM Hypothyroidism, unspecified Sep 04 2017 2:22PM Payers Insurance Name Company Name Plan Name Plan Number Policy Number Policy Group Number Start Date [facility] [id number] N/A R UMR [id number] Monday, 2009 [facility] [id number] N/A History of Encounters Visit Date Visit Type Provider 09/04/[address] Teodora Vazquez MD 08/01/[address] Teodora Vazquez MD 05/24/2015 Office visit Lexie eLe ASSESSMENT NURSE PRACTITIONER 04/05/2015 Office visit Michelle Glover ASSESSMENT NURSE PRACTITIONER 03/10/2015 Office visit Feli Reid ASSESSMENT NURSE PRACTITIONER 07/29/2014 Office visit Carole Reddy ASSESSMENT NURSE PRACTITIONER 07/08/2014 Office visit 07/08/2014 Office visit Jamar Cornelius ASSESSMENT NURSE PRACTITIONER 03/19/2014 Office visit Carole Reddy ASSESSMENT NURSE PRACTITIONER 01/29/2014 Office visit Carole Reddy ASSESSMENT NURSE PRACTITIONER 09/26/2013 Voided Jamar Reyesran ASSESSMENT NURSE PRACTITIONER 09/26/2013 Office visit Jamar Reyesran ASSESSMENT NURSE PRACTITIONER 09/24/2013 Office visit Jamar Cornelius ASSESSMENT NURSE PRACTITIONER 06/08/2013 Office visit Kang Morgan ASSESSMENT NURSE PRACTITIONER 06/08/2013 Voided Kang Morgan ASSESSMENT NURSE PRACTITIONER 05/22/2013 Office visit Carole Reddy ASSESSMENT NURSE PRACTITIONER 05/06/2013 Office visit Jamar Cornelius ASSESSMENT NURSE PRACTITIONER 04/09/2013 Office visit Carole Reddy ASSESSMENT NURSE PRACTITIONER 03/04/2013 Office visit Carole Reddy ASSESSMENT NURSE PRACTITIONER 10/17/2012 Office visit Sherry Domínguez MD 09/03/2012 Office visit Carole Reddy ASSESSMENT NURSE PRACTITIONER 08/14/2012 Office visit Sherry Domínguez MD 07/17/2012 Office visit Carole Reddy ASSESSMENT NURSE PRACTITIONER 07/02/2012 Office visit Sherry Domínguez MD 05/28/2012 Office visit Sherry Domínguez MD 04/23/2012 Office visit Trinity Torre MD 07/25/2011 Office visit Sanford Soto MD 03/19/2010 Office visit Trinity Torre MD 12/21/2009 Office visit Sherry Domínguez MD
--- OUTSIDE RECORDS SUMMARY | 2017-11-11 22:42 | XMS REPORT ---
Author Author Teodora Vazquez [facility] Address [address] [place], [place] [id number] Care Team Providers Care Laborer Adjustable Steel Joist Name Role Phone Teodora Vazquez PCP Allergies [...] THYROID STIM HORMONE Reviewed 07/29/2014 12:00 AM BRICK TENDER Consult Reviewed 03/10/2015 12:00 AM CHLAMYDIA CULTURE [...] uIU/mL History Of Immunizations Name Date Admin Mf Name [facility] Code Trade Name Lot# Route Inj Vis Given Vis Pub CVX Influenza 07/08/2014 sanofi pasteur PMC Fluzone Quadrivalent [id number] Intramuscular Left Deltoid 07/08/2014 04/15/2014 141 History [...] in second trimester Oct 12 2017 10:30AM Payers Insurance Name Company Name Plan Name Plan Number Policy Number Policy Group [facility] [id number] N/A UMR UMR [id number] Monday, 2009 [facility] [id number] N/A History of Encounters Visit Date Visit Type Provider 10/12/[address] Teodora Vazquez MD 09/15/[address] Teodora Vazquez MD 09/04/[address] Teodora Vazquez MD 08/01/[address] Teodora Vazquez MD 05/24/2015 Office visit Lexie Lee CST 04/05/2015 Office visit Michelle Glover CST 03/10/2015 Office visit Feli CarrascoMack Reid CST 07/29/2014 Office visit Carole Reddy CST 07/08/2014 Office visit 07/08/2014 Office visit Jamar Cornelius CST 03/19/2014 Office visit Carole Reddy CST 01/29/2014 Office visit Carole Reddy CST 09/26/2013 Voided Jamar Cornelius CST 09/26/2013 Office visit Jamar Cornelius CST 09/24/2013 Office visit Jamar Cornelius CST 06/08/2013 Office visit Kang Morgan CST 06/08/2013 Voided Kang Morgan CST 05/22/2013 Office visit Carole Reddy CST 05/06/2013 Office visit Jamar Cornelius CST 04/09/2013 Office visit Carole Reddy CST 03/04/2013 Office visit Carole Reddy CST 10/17/2012 Office visit Sherry Domínguez MD 09/03/2012 Office visit Carole Reddy CST 08/14/2012 Office visit Sherry Domínguez MD 07/17/2012 Office visit Carole Reddy CST 07/02/2012 Office visit Sherry Domínguez MD 05/28/2012 Office visit Sherry Domínguez MD 04/23/2012 Office visit Trinity Torre MD 07/25/2011 Office visit Sanford Soto MD 03/19/2010 Office visit Trinity Torre MD 12/21/2009 Office visit Sherry Domínguez MD
--- OUTSIDE RECORDS SUMMARY | 2017-11-11 22:42 | XMS REPORT ---
Author Author Kang Staley [facility] Address [address] [place], [place] [id number] Care Team Providers Care Strategy Analyst Name Role Phone Kang Staley PCP Allergies and Adverse Reactions Name Reaction Notes NO KNOWN DRUG ALLERGIES Plan of Treatment Planned Activity Comments Planned Date Planned Time Plan/Goal Ob Limited Sono 11/23/2017 12:00 AM CMP 11/02/2017 12:00 AM Lipase ser 11/02/2017 12:00 AM Amylase measurement 11/02/2017 12:00 AM RUQ US (right upper quadrant ultrasound) 11/02/2017 12:00 AM Medications Active Name Start [...] THYROID STIM HORMONE Reviewed 07/29/2014 12:00 AM EXTRUDER TENDER Consult Reviewed 03/10/2015 12:00 AM CHLAMYDIA [...] Influenza 07/08/2014 sanofi pasteur PMC Fluzone Quadrivalent [id number] Intramuscular Left Deltoid 07/08/2014 04/15/2014 141 History [...] Policy Number Policy Group Number [id number] [id number] N/A [facility] UMR [id number] Monday, 2009 [facility] [id number] N/A History of Encounters Visit Date Visit Type Provider 10/17/2017 Hospital Kang Staley MD 10/12/[address] Teodora Vazquez MD 09/15/[address] Teodora Vazquez MD 09/04/[address] Teodora Vazquez MD 08/01/[address] Teodora Vazquez MD 05/24/2015 Office visit Lexie Lee REPULPING SUPERVISOR 04/05/2015 Office visit Michelle Glover REPULPING SUPERVISOR 03/10/2015 Office visit Feli Reid REPULPING SUPERVISOR 07/29/2014 Office visit Carole Reddy REPULPING SUPERVISOR 07/08/2014 Office visit 07/08/2014 Office visit Jamar Cornelius REPULPING SUPERVISOR 03/19/2014 Office visit Carole Reddy REPULPING SUPERVISOR 01/29/2014 Office visit Carole Reddy REPULPING SUPERVISOR 09/26/2013 Voided Jamar Cornelius REPULPING SUPERVISOR 09/26/2013 Office visit Jamar Cornelius REPULPING SUPERVISOR 09/24/2013 Office visit Jamar Cornelius REPULPING SUPERVISOR 06/08/2013 Office visit Kang Morgan REPULPING SUPERVISOR 06/08/2013 Voided Kang Morgan REPULPING SUPERVISOR 05/22/2013 Office visit Carole Reddy REPULPING SUPERVISOR 05/06/2013 Office visit Jamar Cornelius REPULPING SUPERVISOR 04/09/2013 Office visit Carole Reddy REPULPING SUPERVISOR 03/04/2013 Office visit Carole Reddy REPULPING SUPERVISOR 10/17/2012 Office visit Sherry Domínguez MD 09/03/2012 Office visit Carole Reddy REPULPING SUPERVISOR 08/14/2012 Office visit Sherry Domínguez MD 07/17/2012 Office visit Carole Reddy REPULPING SUPERVISOR 07/02/2012 Office visit Sherry Domínguez MD 05/28/2012 Office visit Sherry Domínguez MD 04/23/2012 Office visit Trinity Torre MD 07/25/2011 Office visit Sanford Soto MD 03/19/2010 Office visit Trinity Torre MD 12/21/2009 Office visit Sherry Domínguez MD
--- OUTSIDE RECORDS SUMMARY | 2017-11-11 22:43 | XMS REPORT ---
Author Author Teodora Vazquez [facility] Address [address] [place], [place] [id number] Care Team Providers Care Co Op Name Role Phone Teodora Vazquez PCP Allergies [...] THYROID STIM HORMONE Reviewed 07/29/2014 12:00 AM RIVET SORTER Consult Reviewed 03/10/2015 12:00 AM CHLAMYDIA CULTURE [...] Of Immunizations Name Date Admin Mf Name [facility] Code Trade Name Lot# Route Inj Vis Given Vis Pub CVX Influenza 07/08/2014 sanofi pasteur PMC Fluzone Quadrivalent [id number] Intramuscular Left Deltoid 07/08/2014 04/15/2014 141 History [...] Policy Number Policy Group Number [facility] [id number] N/A UMR UMR [id number] Monday, 2009 [facility] [id number] N/A History of Encounters Visit Date Visit Type Provider 10/12/[address] Teodora Vazquez MD 09/15/[address] Teodora Vazquez MD 09/04/[address] Teodora Vazquez MD 08/01/[address] Teodora Vazquez MD 05/24/2015 Office visit Lexie Lee TELEGRAPH REPEATER INSTALLER 04/05/2015 Office visit Michelle Glover TELEGRAPH REPEATER INSTALLER 03/10/2015 Office visit Feli CarrascoMack Reid TELEGRAPH REPEATER INSTALLER 07/29/2014 Office visit Carole Reddy TELEGRAPH REPEATER INSTALLER 07/08/2014 Office visit 07/08/2014 Office visit Jamar Cornelius TELEGRAPH REPEATER INSTALLER 03/19/2014 Office visit Carole Reddy TELEGRAPH REPEATER INSTALLER 01/29/2014 Office visit Carole Reddy TELEGRAPH REPEATER INSTALLER 09/26/2013 Voided Jamar Cornelius TELEGRAPH REPEATER INSTALLER 09/26/2013 Office visit Jamar Cornelius TELEGRAPH REPEATER INSTALLER 09/24/2013 Office visit Jamar Cornelius TELEGRAPH REPEATER INSTALLER 06/08/2013 Office visit Kang Morgan TELEGRAPH REPEATER INSTALLER 06/08/2013 Voided Kang Morgan TELEGRAPH REPEATER INSTALLER 05/22/2013 Office visit Carole Reddy TELEGRAPH REPEATER INSTALLER 05/06/2013 Office visit Jamar Cornelius TELEGRAPH REPEATER INSTALLER 04/09/2013 Office visit Carole Reddy TELEGRAPH REPEATER INSTALLER 03/04/2013 Office visit Carole Reddy TELEGRAPH REPEATER INSTALLER 10/17/2012 Office visit Sherry Domínguez MD 09/03/2012 Office visit Carole Reddy TELEGRAPH REPEATER INSTALLER 08/14/2012 Office visit Sherry Domínguez MD 07/17/2012 Office visit Carole Reddy TELEGRAPH REPEATER INSTALLER 07/02/2012 Office visit Sherry Domínguez MD 05/28/2012 Office visit Sherry Domínguez MD 04/23/2012 Office visit Trinity Torre MD 07/25/2011 Office visit Sanford Soto MD 03/19/2010 Office visit Trinity Torre MD 12/21/2009 Office visit Sherry Domínguez MD
--- OUTSIDE RECORDS SUMMARY | 2017-11-11 22:43 | XMS REPORT ---
Author Author Teodora Vazquez [facility] Address [address] [place], [place] [id number] Care Team Providers Care Cuff Runner Name Role Phone Teodora Vazquez PCP Allergies [...] THYROID STIM HORMONE Reviewed 07/29/2014 12:00 AM MANUSCRIPTS CURATOR Consult Reviewed 03/10/2015 12:00 AM CHLAMYDIA CULTURE [...] Of Immunizations Name Date Admin Mfg Name Mf Code Trade Name Lot# Route Inj Vis Given Vis Pub CVX Influenza 07/08/2014 sanofi pasteur PMC Fluzone Quadrivalent [id number] Intramuscular Left Deltoid 07/08/2014 04/15/2014 141 History [...] Policy Number Policy Group Number Start Date [facility] [id number] [id number], 2009 [facility] [id number] N/A History of Encounters Visit Date Visit Type Provider 09/15/[address] Teodora Vazquez MD 09/04/[address] Teodora Vazquez MD 08/01/[address] Teodora Vazquez MD 05/24/2015 Office visit Lexie Lee APRN 04/05/2015 Office visit Michelle Golver APRN 03/10/2015 Office visit Feli Reid WELDER FITTER APPRENTICE 07/29/2014 Office visit Carole Reddy WELDER FITTER APPRENTICE 07/08/2014 Office visit 07/08/2014 Office visit Jamar Cornelius WELDER FITTER APPRENTICE 03/19/2014 Office visit Carole Reddy WELDER FITTER APPRENTICE 01/29/2014 Office visit Carole Reddy WELDER FITTER APPRENTICE 09/26/2013 Voided Jamar Reyesran WELDER FITTER APPRENTICE 09/26/2013 Office visit Jamar Cornelius WELDER FITTER APPRENTICE 09/24/2013 Office visit Jamar Cornelius WELDER FITTER APPRENTICE 06/08/2013 Office visit Kang JoseMack Morgan WELDER FITTER APPRENTICE 06/08/2013 Voided Kang Clementemond WELDER FITTER APPRENTICE 05/22/2013 Office visit Carole Reddy WELDER FITTER APPRENTICE 05/06/2013 Office visit Jamar Cornelius WELDER FITTER APPRENTICE 04/09/2013 Office visit Carole Reddy WELDER FITTER APPRENTICE 03/04/2013 Office visit Carole Reddy WELDER FITTER APPRENTICE 10/17/2012 Office visit Sherry Domínguez MD 09/03/2012 Office visit Carole Reddy WELDER FITTER APPRENTICE 08/14/2012 Office visit Sherry Domínguez MD 07/17/2012 Office visit Carole Reddy WELDER FITTER APPRENTICE 07/02/2012 Office visit Sherry Domínguez MD 05/28/2012 Office visit Sherry Domínguez MD 04/23/2012 Office visit Trinity Torre MD 07/25/2011 Office visit Sanford Soto MD 03/19/2010 Office visit Trinity Torre MD 12/21/2009 Office visit Sherry Domínguez MD
--- OUTSIDE RECORDS SUMMARY | 2017-11-11 22:44 | XMS REPORT ---
Author Author Teodora Vazquez [facility] Address [address] [place], [place] [id number] Care Team Providers Care Associate Merchant Name Role Phone Teodora Vazquez PCP Allergies and Adverse Reactions Name Reaction Notes NO KNOWN DRUG ALLERGIES Plan of Treatment Not available. Medications Active Name Start Date Estimated Completion [...] THYROID STIM HORMONE Reviewed 07/29/2014 12:00 AM VP TALENT MANAGEMENT Consult Reviewed 03/10/2015 12:00 AM CHLAMYDIA CULTURE [...] Influenza 07/08/2014 sanofi pasteur PMC Fluzone Quadrivalent [id number] Intramuscular Left Deltoid 07/08/2014 04/15/2014 141 History [...] Policy Number Policy Group Number Start Date [facility] [id number] N/A R UMR [id number] Monday, 2009 [facility] [id number] N/A History of Encounters Visit Date Visit Type Provider 10/12/[address] Teodora Vazquez MD 09/15/[address] Teodora Vazquez MD 09/04/[address] Teodora Vazquez MD 08/01/[address] Teodora Vazquez MD 05/24/2015 Office visit Lexie Lee APRN 04/05/2015 Office visit Michelle Glover ASSOCIATE EDITOR 03/10/2015 Office visit Feli CarrascoMack Reid ASSOCIATE EDITOR 07/29/2014 Office visit Carole Reddy ASSOCIATE EDITOR 07/08/2014 Office visit 07/08/2014 Office visit Jamar Cornelius ASSOCIATE EDITOR 03/19/2014 Office visit Carole Reddy ASSOCIATE EDITOR 01/29/2014 Office visit Carole Reddy ASSOCIATE EDITOR 09/26/2013 Voided Jamar Reyesran ASSOCIATE EDITOR 09/26/2013 Office visit Jamar Cornelius ASSOCIATE EDITOR 09/24/2013 Office visit Jamar Cornelius ASSOCIATE EDITOR 06/08/2013 Office visit Kang Marcell ClementeEddie ASSOCIATE EDITOR 06/08/2013 Voided Kang Morgan ASSOCIATE EDITOR 05/22/2013 Office visit Carole Reddy ASSOCIATE EDITOR 05/06/2013 Office visit Jamar Cornelius ASSOCIATE EDITOR 04/09/2013 Office visit Carole Reddy ASSOCIATE EDITOR 03/04/2013 Office visit Carole Reddy ASSOCIATE EDITOR 10/17/2012 Office visit Sherry Domínguez MD 09/03/2012 Office visit Carole Reddy ASSOCIATE EDITOR 08/14/2012 Office visit Sherry Domínguez MD 07/17/2012 Office visit Carole Reddy ASSOCIATE EDITOR 07/02/2012 Office visit Sherry Domínguez MD 05/28/2012 Office visit Sherry Domínguez MD 04/23/2012 Office visit Trinity Torer MD 07/25/2011 Office visit Sanford Soto MD 03/19/2010 Office visit Trinity Torre MD 12/21/2009 Office visit Sherry Domínguez MD
--- OUTSIDE RECORDS SUMMARY | 2017-11-11 22:45 | XMS REPORT ---
Author Author Teodora Vazquez [facility] Address [address] [place], [place] [phone] Care Team Providers Care Social Work Job Titles Name Role Phone Teodora Vazquez PCP Allergies [...] THYROID STIM HORMONE Reviewed 07/29/2014 12:00 AM SOLVENT RECOVERER Consult Reviewed 03/10/2015 12:00 AM CHLAMYDIA CULTURE [...] Influenza 07/08/2014 sanofi pasteur PMC Fluzone Quadrivalent [id number] Intramuscular Left Deltoid 07/08/2014 04/15/2014 141 History [...] Policy Number Policy Group Number Start Date [facility] [id number] [id number], [facility] [id number] N/A History of Encounters Visit Date Visit Type Provider 08/01/[address] Teodora Vazquez MD 05/24/2015 Office visit Lexie Lee HOST COORDINATOR 04/05/2015 Office visit Michelle Glover HOST COORDINATOR 03/10/2015 Office visit Feli Reid HOST COORDINATOR 07/29/2014 Office visit Carole Reddy HOST COORDINATOR 07/08/2014 Office visit 07/08/2014 Office visit Jamar Cornelius HOST COORDINATOR 03/19/2014 Office visit Carole Reddy HOST COORDINATOR 01/29/2014 Office visit Carole Reddy HOST COORDINATOR 09/26/2013 Voided Jamar Cornelius HOST COORDINATOR 09/26/2013 Office visit Jamar Cornelius HOST COORDINATOR 09/24/2013 Office visit Jamar Cornelius HOST COORDINATOR 06/08/2013 Office visit Kang Morgan HOST COORDINATOR 06/08/2013 Voided Kang Morgan HOST COORDINATOR 05/22/2013 Office visit Carole Reddy HOST COORDINATOR 05/06/2013 Office visit Jamar Cornelius HOST COORDINATOR 04/09/2013 Office visit Carole Reddy HOST COORDINATOR 03/04/2013 Office visit Carole Reddy HOST COORDINATOR 10/17/2012 Office visit Sherry Domínguez MD 09/03/2012 [...]
--- OUTSIDE RECORDS SUMMARY | 2017-11-11 22:45 | XMS REPORT ---
Author Author Teodora Vazquez [facility] Address [address] [place], [place] [id number] Care Team Providers Care Material Analyst Name Role Phone Teodora Vazquez PCP [...] THYROID STIM HORMONE Reviewed 07/29/2014 12:00 AM LABEL PASTER Consult Reviewed 03/10/2015 12:00 AM CHLAMYDIA CULTURE [...] Influenza 07/08/2014 sanofi pasteur PMC Fluzone Quadrivalent [id number] Intramuscular Left Deltoid 07/08/2014 04/15/2014 141 History [...] of left ear May 24 2015 1:40PM Payers Insurance Name Company Name Plan Name Plan Number Policy Number Policy Group Number Start Date [facility] [id number] N/A [facility] UMR [id number] Monday, 2009 [facility] [id number] N/A History of Encounters Visit Date Visit Type Provider 08/01/[address] Teodora Vazquez MD 05/24/2015 Office visit Lexie Lee EXCHANGE ARCHITECT 04/05/2015 Office visit Michelle Glover EXCHANGE ARCHITECT 03/10/2015 Office visit Feli Reid EXCHANGE ARCHITECT 07/29/2014 Office visit Carole Reddy EXCHANGE ARCHITECT 07/08/2014 Office visit 07/08/2014 Office visit Jamar Cornelius EXCHANGE ARCHITECT 03/19/2014 Office visit Carole Reddy EXCHANGE ARCHITECT 01/29/2014 Office visit Carole Reddy EXCHANGE ARCHITECT 09/26/2013 Voided Jamar Cornelius EXCHANGE ARCHITECT 09/26/2013 Office visit Jamar Cornelius EXCHANGE ARCHITECT 09/24/2013 Office visit Jamar Cornelius EXCHANGE ARCHITECT 06/08/2013 Office visit Kang Morgan EXCHANGE ARCHITECT 06/08/2013 Voided Kang Morgan EXCHANGE ARCHITECT 05/22/2013 Office visit Carole Reddy EXCHANGE ARCHITECT 05/06/2013 Office visit Jamar Cornelius EXCHANGE ARCHITECT 04/09/2013 Office visit Carole Reddy EXCHANGE ARCHITECT 03/04/2013 Office visit Carole Reddy EXCHANGE ARCHITECT 10/17/2012 Office visit Sherry Domínguez MD 09/03/2012 Office visit Carole Reddy EXCHANGE ARCHITECT 08/14/2012 Office visit Sherry Domínguez MD 07/17/2012 Office visit Carole Reddy EXCHANGE ARCHITECT 07/02/2012 Office visit Sherry Domínguez MD 05/28/2012 Office visit Sherry Domínguez MD 04/23/2012 Office visit Trinity Torre MD 07/25/2011 Office visit Sanford Soto MD 03/19/2010 Office visit Trinity Torre MD 12/21/2009 Office visit Sherry Domínguez MD
--- OUTSIDE RECORDS SUMMARY | 2017-11-11 22:46 | XMS REPORT ---
Author Author Teodora Vazquez [facility] Address [address] [place], [place] [address] Care Team Providers Care Global Account Director Name Role Phone Teodora Vazquez PCP Allergies [...] THYROID STIM HORMONE Reviewed 07/29/2014 12:00 AM MILL ORDER SCHEDULER Consult Reviewed 03/10/2015 12:00 AM CHLAMYDIA CULTURE [...] Influenza 07/08/2014 sanofi pasteur PMC Fluzone Quadrivalent [id number] Intramuscular Left Deltoid 07/08/2014 04/15/2014 141 History [...] Policy Number Policy Group Number Start Date [facility] [id number] N/A R UMR [id number] Monday, 2009 [facility] [id number] N/A History of Encounters Visit Date Visit Type Provider 09/04/[address] Teodora Vazquez MD 08/01/[address] Teodora Vazquez MD 05/24/2015 Office visit Lexie Lee CORPORATE REAL ESTATE SPECIALIST 04/05/2015 Office visit Michelle Glover CORPORATE REAL ESTATE SPECIALIST 03/10/2015 Office visit Feli Reid CORPORATE REAL ESTATE SPECIALIST 07/29/2014 Office visit Carole Reddy CORPORATE REAL ESTATE SPECIALIST 07/08/2014 Office visit 07/08/2014 Office visit Jamar Cornelius CORPORATE REAL ESTATE SPECIALIST 03/19/2014 Office visit Carole Reddy CORPORATE REAL ESTATE SPECIALIST 01/29/2014 Office visit Carole Reddy CORPORATE REAL ESTATE SPECIALIST 09/26/2013 Voided Jamar Reyesran CORPORATE REAL ESTATE SPECIALIST 09/26/2013 Office visit Jamar Reyesran CORPORATE REAL ESTATE SPECIALIST 09/24/2013 Office visit Jamar Cornelius CORPORATE REAL ESTATE SPECIALIST 06/08/2013 Office visit Kang Morgan CORPORATE REAL ESTATE SPECIALIST 06/08/2013 Voided Kang Morgan CORPORATE REAL ESTATE SPECIALIST 05/22/2013 Office visit Carole Reddy CORPORATE REAL ESTATE SPECIALIST 05/06/2013 Office visit Jamar Cornelius CORPORATE REAL ESTATE SPECIALIST 04/09/2013 Office visit Carole Reddy CORPORATE REAL ESTATE SPECIALIST 03/04/2013 Office visit Carole Reddy CORPORATE REAL ESTATE SPECIALIST 10/17/2012 Office visit Sherry Domínguez MD 09/03/2012 Office visit Carole Reddy CORPORATE REAL ESTATE SPECIALIST 08/14/2012 Office visit Sherry Domínguez MD 07/17/2012 Office visit Carole Reddy CORPORATE REAL ESTATE SPECIALIST 07/02/2012 Office visit Sherry Domínguez MD 05/28/2012 Office visit Sherry Domínguez MD 04/23/2012 Office visit Trinity Torre MD 07/25/2011 Office visit Sanford Soto MD 03/19/2010 Office visit Trinity Torre MD 12/21/2009 Office visit Sherry Domínguez MD
--- OUTSIDE RECORDS SUMMARY | 2017-11-11 22:47 | XMS REPORT ---
Author Author Teodora Vazquez [facility] Address [address] [place], [place] [id number] Care Team Providers Care Income Tax Analyst Name Role Phone Teodora Vazquez PCP [...] THYROID STIM HORMONE Reviewed 07/29/2014 12:00 AM SPECIAL SKILLS OFFICER Consult Reviewed 03/10/2015 12:00 AM CHLAMYDIA CULTURE [...] Of Immunizations Name Date Admin Mf Name [facility] Code Trade Name Lot# Route Inj Vis Given Vis Pub CVX Influenza 07/08/2014 sanofi pasteur PMC Fluzone Quadrivalent [id number] Intramuscular Left Deltoid 07/08/2014 04/15/2014 141 History [...] Number Policy Group Number [facility] [id number] N/A UMR UMR [id number] Monday, 2009 [facility] [id number] N/A History of Encounters Visit Date Visit Type Provider 10/12/[address] Teodora Vazquez MD 09/15/[address] Teodora Vazquez MD 09/04/[address] Teodora Vazquez MD 08/01/[address] Teodora Vazquez MD 05/24/2015 Office visit Lexie Lee DIRECTOR OF SOLUTIONS ARCHITECTURE 04/05/2015 Office visit Michelle Glover DIRECTOR OF SOLUTIONS ARCHITECTURE 03/10/2015 Office visit Feli CarrascoMack Reid DIRECTOR OF SOLUTIONS ARCHITECTURE 07/29/2014 Office visit Carole Reddy DIRECTOR OF SOLUTIONS ARCHITECTURE 07/08/2014 Office visit 07/08/2014 Office visit Jamar Cornelius DIRECTOR OF SOLUTIONS ARCHITECTURE 03/19/2014 Office visit Carole Reddy DIRECTOR OF SOLUTIONS ARCHITECTURE 01/29/2014 Office visit Carole Reddy DIRECTOR OF SOLUTIONS ARCHITECTURE 09/26/2013 Voided Jamar Cornelius DIRECTOR OF SOLUTIONS ARCHITECTURE 09/26/2013 Office visit Jamar Cornelius DIRECTOR OF SOLUTIONS ARCHITECTURE 09/24/2013 Office visit Jamar Cornelius DIRECTOR OF SOLUTIONS ARCHITECTURE 06/08/2013 Office visit Kang Morgan DIRECTOR OF SOLUTIONS ARCHITECTURE 06/08/2013 Voided Kang Morgan DIRECTOR OF SOLUTIONS ARCHITECTURE 05/22/2013 Office visit Carole Reddy DIRECTOR OF SOLUTIONS ARCHITECTURE 05/06/2013 Office visit Jamar Cornelius DIRECTOR OF SOLUTIONS ARCHITECTURE 04/09/2013 Office visit Carole Reddy DIRECTOR OF SOLUTIONS ARCHITECTURE 03/04/2013 Office visit Carole Reddy DIRECTOR OF SOLUTIONS ARCHITECTURE 10/17/2012 Office visit Sherry Domínguez MD 09/03/2012 Office visit Carole Reddy DIRECTOR OF SOLUTIONS ARCHITECTURE 08/14/2012 Office visit Sherry Domínguez MD 07/17/2012 Office visit Carole Reddy DIRECTOR OF SOLUTIONS ARCHITECTURE 07/02/2012 Office visit Sherry Domínguez MD 05/28/2012 Office visit Sherry Domínguez MD 04/23/2012 Office visit Trinity Torre MD 07/25/2011 Office visit Sanford Soto MD 03/19/2010 Office visit Trinity Torre MD 12/21/2009 Office visit Sherry Domínguez MD
--- OUTSIDE RECORDS SUMMARY | 2017-11-11 22:47 | XMS REPORT ---
Author Author Teodora Vazquez [facility] Address [address] [place], [place] [id number] Care Team Providers Care Desk Assistant Name Role Phone Teodora Vazquez PCP Allergies [...] THYROID STIM HORMONE Reviewed 07/29/2014 12:00 AM PINKED EDGE SEWING MACHINE OPERATOR Consult Reviewed 03/10/2015 12:00 AM [...] Influenza 07/08/2014 sanofi pasteur PMC Fluzone Quadrivalent [id number] Intramuscular Left Deltoid 07/08/2014 04/15/2014 141 History [...] Number Policy Group Number Start Date [facility] [id number] N/A [id number] Monday, 2009 [facility] [id number] N/A History of Encounters Visit Date Visit Type Provider 09/15/[address] Teodora Vazquez MD 09/04/[address] Teodora Vazquez MD 08/01/[address] Teodora Vazquez MD 05/24/2015 Office visit Lexie Lee APRN 04/05/2015 Office visit Michelle Glover APRN 03/10/2015 Office visit Feli Reid ENVIRONMENTAL SERVICES ASSOCIATE 07/29/2014 Office visit Carole Reddy ENVIRONMENTAL SERVICES ASSOCIATE 07/08/2014 Office visit 07/08/2014 Office visit Jamar Cornelius ENVIRONMENTAL SERVICES ASSOCIATE 03/19/2014 Office visit Carole Reddy ENVIRONMENTAL SERVICES ASSOCIATE 01/29/2014 Office visit Carole Reddy ENVIRONMENTAL SERVICES ASSOCIATE 09/26/2013 Voided Jamar Reyesran ENVIRONMENTAL SERVICES ASSOCIATE 09/26/2013 Office visit Jamar Cornelius ENVIRONMENTAL SERVICES ASSOCIATE 09/24/2013 Office visit Jamar Cornelius ENVIRONMENTAL SERVICES ASSOCIATE 06/08/2013 Office visit Kang JoseMack Morgan ENVIRONMENTAL SERVICES ASSOCIATE 06/08/2013 Voided Kang Clementemond ENVIRONMENTAL SERVICES ASSOCIATE 05/22/2013 Office visit Carole Reddy ENVIRONMENTAL SERVICES ASSOCIATE 05/06/2013 Office visit Jamar Cornelius ENVIRONMENTAL SERVICES ASSOCIATE 04/09/2013 Office visit Carole Reddy ENVIRONMENTAL SERVICES ASSOCIATE 03/04/2013 Office visit Carole Reddy ENVIRONMENTAL SERVICES ASSOCIATE 10/17/2012 Office visit Sherry Domínguez MD 09/03/2012 Office visit Carole Reddy ENVIRONMENTAL SERVICES ASSOCIATE 08/14/2012 Office visit Sherry Domínguez MD 07/17/2012 Office visit Carole Reddy ENVIRONMENTAL SERVICES ASSOCIATE 07/02/2012 Office visit Sherry Domníguez MD 05/28/2012 Office visit Sherry Domínguez MD 04/23/2012 Office visit Trinity Torre MD 07/25/2011 Office visit Sanford Soto MD 03/19/2010 Office visit Trinity Torre MD 12/21/2009 Office visit Sherry Domínguez MD
--- OUTSIDE RECORDS SUMMARY | 2017-11-11 22:48 | XMS REPORT ---
Author Author Teodora Vazquez [facility] Address [address] [place], [place] [id number] Care Team Providers Care Admissions Consultant Name Role Phone Teodora Vazquez PCP Allergies [...] THYROID STIM HORMONE Reviewed 07/29/2014 12:00 AM PIG STICKER Consult Reviewed 03/10/2015 12:00 AM CHLAMYDIA CULTURE [...] Of Immunizations Name Date Admin Mf Name [facility] Code Trade Name Lot# Route Inj Vis Given Vis Pub CVX Influenza 07/08/2014 sanofi pasteur PMC Fluzone Quadrivalent [id number] Intramuscular Left Deltoid 07/08/2014 04/15/2014 141 History [...] Policy Number Policy Group Number [facility] [id number] N/A [facility] [id number] Monday, 2009 [facility] [id number] N/A History of Encounters Visit Date Visit Type Provider 10/12/[address] Teodora Vazquez MD 09/15/[address] Teodora Vazquez MD 09/04/[address] Teodora Vazquez MD 08/01/[address] Teodora Vazquez MD 05/24/2015 Office visit Lexie Lee CONSTRUCTION WORKER 04/05/2015 Office visit Michelle Glover CONSTRUCTION WORKER 03/10/2015 Office visit Feli CarrascoMack Reid CONSTRUCTION WORKER 07/29/2014 Office visit Carole Reddy CONSTRUCTION WORKER 07/08/2014 Office visit 07/08/2014 Office visit Jamar Cornelius CONSTRUCTION WORKER 03/19/2014 Office visit Carole Reddy CONSTRUCTION WORKER 01/29/2014 Office visit Carole Reddy CONSTRUCTION WORKER 09/26/2013 Voided Jamar Cornelius CONSTRUCTION WORKER 09/26/2013 Office visit Jamar Cornelius CONSTRUCTION WORKER 09/24/2013 Office visit Jamar Cornelius CONSTRUCTION WORKER 06/08/2013 Office visit Kang Morgan CONSTRUCTION WORKER 06/08/2013 Voided Kang Morgan CONSTRUCTION WORKER 05/22/2013 Office visit Carole Reddy CONSTRUCTION WORKER 05/06/2013 Office visit Jamar Cornelius CONSTRUCTION WORKER 04/09/2013 Office visit Carole Reddy CONSTRUCTION WORKER 03/04/2013 Office visit Carole Reddy CONSTRUCTION WORKER 10/17/2012 Office visit Sherry Domínguez MD 09/03/2012 Office visit Carole Reddy CONSTRUCTION WORKER 08/14/2012 Office visit Sherry Domínguez MD 07/17/2012 Office visit Carole Reddy CONSTRUCTION WORKER 07/02/2012 Office visit Sherry Domínguez MD 05/28/2012 Office visit Sherry Domínguez MD 04/23/2012 Office visit Trinity Torre MD 07/25/2011 Office visit Sanford Soto MD 03/19/2010 Office visit Trinity Torre MD 12/21/2009 Office visit Sherry Domínguez MD
--- OUTSIDE RECORDS SUMMARY | 2017-11-11 22:49 | XMS REPORT ---
Author Author Teodora Vazquez [facility] Address [address] [place], [place] [id number] Care Team Providers Care Tank Pumper Name Role Phone Teodora Vazquez PCP Allergies [...] 11/02/2017 12:00 AM ASSAY OF AMYLASE Returned 01/29/2014 12:00 AM COMPLETE CBC W/AUTO [...] THYROID STIM HORMONE Reviewed 07/29/2014 12:00 AM UG DESIGNER Consult Reviewed 03/10/2015 12:00 AM CHLAMYDIA CULTURE [...] Influenza 07/08/2014 sanofi pasteur PMC Fluzone Quadrivalent [id number] Intramuscular Left Deltoid 07/08/2014 04/15/2014 141 History [...] Group Number Start Date [facility] [id number] N/A [facility] [id number] Monday, 2009 [facility] [id number] N/A History of Encounters Visit Date Visit Type Provider 11/06/[address] Teodora Vazquez MD 10/17/2017 [facility] Kang Staley MD 10/12/[address] Teodora Vazquez MD 09/15/[address] Teodora Vazquez MD 09/04/[address] Teodora Vazquez MD 08/01/[address] Teodora Vazquez MD 05/24/2015 Office visit Lexie Lee CENTRIFUGAL DRIER OPERATOR 04/05/2015 Office visit Michelle Glover CENTRIFUGAL DRIER OPERATOR 03/10/2015 Office visit Feli Reid CENTRIFUGAL DRIER OPERATOR 07/29/2014 Office visit Carole Reddy CENTRIFUGAL DRIER OPERATOR 07/08/2014 Office visit 07/08/2014 Office visit Jamar Cornelius CENTRIFUGAL DRIER OPERATOR 03/19/2014 Office visit Carole Reddy CENTRIFUGAL DRIER OPERATOR 01/29/2014 Office visit Carole Reddy CENTRIFUGAL DRIER OPERATOR 09/26/2013 Voided Jamar Cornelius CENTRIFUGAL DRIER OPERATOR 09/26/2013 Office visit Jamar Cornelius CENTRIFUGAL DRIER OPERATOR 09/24/2013 Office visit Jamar Cornelius CENTRIFUGAL DRIER OPERATOR 06/08/2013 Office visit Kang Morgan CENTRIFUGAL DRIER OPERATOR 06/08/2013 Voided Kang Morgan CENTRIFUGAL DRIER OPERATOR 05/22/2013 Office visit Carole Reddy CENTRIFUGAL DRIER OPERATOR 05/06/2013 Office visit Jamar Reyesran CENTRIFUGAL DRIER OPERATOR 04/09/2013 Office visit Carole Reddy CENTRIFUGAL DRIER OPERATOR 03/04/2013 Office visit Carole Reddy CENTRIFUGAL DRIER OPERATOR 10/17/2012 Office visit Sherry Domínguez MD 09/03/2012 Office visit Carole Reddy CENTRIFUGAL DRIER OPERATOR 08/14/2012 Office visit Sherry Domínguez MD 07/17/2012 Office visit Carole Reddy CENTRIFUGAL DRIER OPERATOR 07/02/2012 Office visit Sherry Domínguez MD 05/28/2012 Office visit Sherry Domínguez MD 04/23/2012 Office visit Trinity Torre MD 07/25/2011 Office visit Sanford Soto MD 03/19/2010 Office visit Trinity Torre MD 12/21/2009 Office visit Sherry Domínguez MD
--- OUTSIDE RECORDS SUMMARY | 2017-11-11 22:49 | XMS REPORT ---
Author Author Teodora Vazquez [facility] Address [address] [place], [place] [address] Care Team Providers Care Care Partner Name Role Phone Teodora Vazquez PCP Allergies [...] THYROID STIM HORMONE Reviewed 07/29/2014 12:00 AM HEDDLER TIER Consult Reviewed 03/10/2015 12:00 AM CHLAMYDIA CULTURE [...] Influenza 07/08/2014 sanofi pasteur PMC Fluzone Quadrivalent [id number] Intramuscular Left Deltoid 07/08/2014 04/15/2014 141 History [...] Policy Group Number Start Date [facility] [id number] [facility] [id number] 2009 [facility] [id number] N/A History of Encounters Visit Date Visit Type Provider 09/15/[address] Teodora Vazquez MD 09/04/[address] Teodora Vazquez MD 08/01/[address] Teodora Vazquez MD 05/24/2015 Office visit Lexiechely Lee SMALL ELECTRIC ENGINE TECHNICIAN 04/05/2015 Office visit Michelle Glover SMALL ELECTRIC ENGINE TECHNICIAN 03/10/2015 Office visit Feli Reid SMALL ELECTRIC ENGINE TECHNICIAN 07/29/2014 Office visit Carole Reddy SMALL ELECTRIC ENGINE TECHNICIAN 07/08/2014 Office visit 07/08/2014 Office visit Jamar Cornelius SMALL ELECTRIC ENGINE TECHNICIAN 03/19/2014 Office visit Carole Reddy SMALL ELECTRIC ENGINE TECHNICIAN 01/29/2014 Office visit Carole Reddy SMALL ELECTRIC ENGINE TECHNICIAN 09/26/2013 Voided Jamar Cornelius SMALL ELECTRIC ENGINE TECHNICIAN 09/26/2013 Office visit Jamar Cornelius SMALL ELECTRIC ENGINE TECHNICIAN 09/24/2013 Office visit Jamar Cornelius SMALL ELECTRIC ENGINE TECHNICIAN 06/08/2013 Office visit Kang Morgan SMALL ELECTRIC ENGINE TECHNICIAN 06/08/2013 Voided Kang Morgan SMALL ELECTRIC ENGINE TECHNICIAN 05/22/2013 Office visit Carole Reddy SMALL ELECTRIC ENGINE TECHNICIAN 05/06/2013 Office visit Jamar Cornelius SMALL ELECTRIC ENGINE TECHNICIAN 04/09/2013 Office visit Carole Reddy SMALL ELECTRIC ENGINE TECHNICIAN 03/04/2013 Office visit Carole Reddy SMALL ELECTRIC ENGINE TECHNICIAN 10/17/2012 Office visit Sherry Domínguez MD 09/03/2012 Office visit Carole Reddy SMALL ELECTRIC ENGINE TECHNICIAN 08/14/2012 Office visit Sherry Domínguez MD 07/17/2012 Office visit Carole Reddy SMALL ELECTRIC ENGINE TECHNICIAN 07/02/2012 Office visit Sherry Domínguez MD 05/28/2012 Office visit Sherry Domínguez MD 04/23/2012 Office visit Trinity Torre MD 07/25/2011 Office visit Sanford Soto MD 03/19/2010 Office visit Trinity Torre MD 12/21/2009 Office visit Sherry Domínguez MD
--- OUTSIDE RECORDS SUMMARY | 2017-11-11 22:50 | XMS REPORT ---
Author Author Teodora Vazquez [facility] Address [address] [place], [place] [address] Care Team Providers Care Resident Care Supervisor Name Role Phone Teodora Vazquez PCP Allergies [...] THYROID STIM HORMONE Reviewed 07/29/2014 12:00 AM SPINNER CAP FRAME Consult Reviewed 03/10/2015 12:00 AM CHLAMYDIA CULTURE [...] Influenza 07/08/2014 sanofi pasteur PMC Fluzone Quadrivalent [id number] Intramuscular Left Deltoid 07/08/2014 04/15/2014 141 History [...] Policy Number Policy Group Number Start Date [facility] [id number] N[facility] [id number] Monday, 2009 [facility] [id number] N/A History of Encounters Visit Date Visit Type Provider 08/01/[address] Teodora Vazquez MD 05/24/2015 Office visit Lexie Lee MICROBIOLOGY LABORATORY MANAGER 04/05/2015 Office visit Michelle Glover MICROBIOLOGY LABORATORY MANAGER 03/10/2015 Office visit Feli Reid MICROBIOLOGY LABORATORY MANAGER 07/29/2014 Office visit Carole Reddy MICROBIOLOGY LABORATORY MANAGER 07/08/2014 Office visit 07/08/2014 Office visit Jamar Cornelius MICROBIOLOGY LABORATORY MANAGER 03/19/2014 Office visit Carole Reddy MICROBIOLOGY LABORATORY MANAGER 01/29/2014 Office visit Carole Reddy MICROBIOLOGY LABORATORY MANAGER 09/26/2013 Voided Jamar Cornelius MICROBIOLOGY LABORATORY MANAGER 09/26/2013 Office visit Jamar Cornelius MICROBIOLOGY LABORATORY MANAGER 09/24/2013 Office visit Jamar Cornelius MICROBIOLOGY LABORATORY MANAGER 06/08/2013 Office visit Kang Faith Eddie MICROBIOLOGY LABORATORY MANAGER 06/08/2013 Voided Kang Morgan MICROBIOLOGY LABORATORY MANAGER 05/22/2013 Office visit Carole Reddy MICROBIOLOGY LABORATORY MANAGER 05/06/2013 Office visit Jamar Ashli MICROBIOLOGY LABORATORY MANAGER 04/09/2013 Office visit Carole Reddy MICROBIOLOGY LABORATORY MANAGER 03/04/2013 Office visit Carole Reddy MICROBIOLOGY LABORATORY MANAGER 10/17/2012 Office visit Sherry Domínguez MD 09/03/2012 Office visit Carole Reddy MICROBIOLOGY LABORATORY MANAGER 08/14/2012 Office visit Sherry Domínguez MD 07/17/2012 Office visit Carole Reddy MICROBIOLOGY LABORATORY MANAGER 07/02/2012 Office visit Sherry Domínguez MD 05/28/2012 Office visit Sherry Domínguez MD 04/23/2012 Office visit Trinity Torre MD 07/25/2011 Office visit Sanford Soto MD 03/19/2010 Office visit Trinity Torre MD 12/21/2009 Office visit Sherry Domínguez MD
--- OUTSIDE RECORDS SUMMARY | 2017-11-11 22:50 | XMS REPORT ---
Author Author Kang Staley [facility] Address [address] [place], [place] [address] Care Team Providers Care Head Of Cytogenetics Name Role Phone Kang Staley PCP Allergies [...] THYROID STIM HORMONE Reviewed 07/29/2014 12:00 AM SMT OPERATOR Consult Reviewed 03/10/2015 12:00 AM CHLAMYDIA [...] Influenza 07/08/2014 sanofi pasteur PMC Fluzone Quadrivalent [id number] Intramuscular Left Deltoid 07/08/2014 04/15/2014 141 History [...] Policy Number Policy Group Number [id number] [id number] N/A [facility] UMR [id number] Monday, 2009 [facility] [id number] N/A History of Encounters Visit Date Visit Type Provider 10/17/2017 Hospital Kang Staley MD 10/12/[address] Teodora Vazquez MD 09/15/[address] Teodora Vazquez MD 09/04/[address] Teodora Vazquez MD 08/01/[address] Teodora Vazquez MD 05/24/2015 Office visit Lexie Lee ROLLER 04/05/2015 Office visit Michelle Glover ROLLER 03/10/2015 Office visit Feli Reid ROLLER 07/29/2014 Office visit Carole Reddy ROLLER 07/08/2014 Office visit 07/08/2014 Office visit Jamar Cornelius ROLLER 03/19/2014 Office visit Carole Reddy ROLLER 01/29/2014 Office visit Carole Reddy ROLLER 09/26/2013 Voided Jamar Cornelius ROLLER 09/26/2013 Office visit Jamar Cornelius ROLLER 09/24/2013 Office visit Jamar Cornelius ROLLER 06/08/2013 Office visit Kang Morgan ROLLER 06/08/2013 Voided Kang Morgan ROLLER 05/22/2013 Office visit Carole Reddy ROLLER 05/06/2013 Office visit Jamar Cornelius ROLLER 04/09/2013 Office visit Carole Reddy ROLLER 03/04/2013 Office visit Carole Reddy ROLLER 10/17/2012 Office visit Sherry Domínguez MD 09/03/2012 Office visit Carole Reddy ROLLER 08/14/2012 Office visit Sherry Domínguez MD 07/17/2012 Office visit Carole Reddy ROLLER 07/02/2012 Office visit Sherry Domínguez MD 05/28/2012 Office visit Sherry Domínguez MD 04/23/2012 Office visit Trinity Torre MD 07/25/2011 Office visit Sanford Soto MD 03/19/2010 Office visit Trinity Torre MD 12/21/2009 Office visit Sherry Domínguez MD
--- OUTSIDE RECORDS SUMMARY | 2017-11-11 22:51 | XMS REPORT ---
Author Author DORIS EPSTEIN [facility] Address [address] [place] [address] Care Team Providers Care Senior Engineering Specialist Name Role Phone DORIS EPSTEIN Unavailable PROBLEMS Unknown Problems ALLERGIES No Known Allergies SOCIAL HISTORY Never Assessed PLAN OF CARE Activity Details Follow Up prn Reason: VITAL SIGNS Height 65 in 2016-12-29 Weight 174.5 lbs 2016-12-29 Temperature 98.5 degrees Fahrenheit 2016-12-29 Heart Rate 88 bpm 2016-12-29 Respiratory Rate 22 2016-12-29 Oximetry 99 % 2016-12-29 BMI 29.04 kg/m2 2016-12-29 Blood pressure systolic 114 mmHg 2016-12-29 Blood pressure diastolic 76 mmHg 2016-12-29 MEDICATIONS Medication Instructions Dosage Frequency Start Date End Date Duration Status Zithromax Z-Rio 250 MG Orally Once a day 2 tablets on the first day, then 1 tablet daily for 4 days 24h December, December, 5 day(s) Active NyQuil Active Ibuprofen 200 MG Orally every 6 hrs 1 tablet as needed 6h Active Benzonatate 200 mg Orally Three times a day 1 capsule 8h December, December, 05 days Active RESULTS No Results PROCEDURES Procedure Date Ordered Result Body Site MEASURE BLOOD OXYGEN LEVEL December 29, 2016 IMMUNIZATIONS No Known Immunizations MEDICAL (GENERAL) HISTORY Type Description Date Surgical History tonsillectomy and adenoidectomy Hospitalization History infection-MRSA
--- OUTSIDE RECORDS SUMMARY | 2017-11-11 22:51 | XMS REPORT ---
Author Author Teodora Vazquez [facility] Address [address] [place], [place] [address] Care Team Providers Care Automotive Parts Advisor Name Role Phone Teodora Vazquez PCP Allergies [...] THYROID STIM HORMONE Reviewed 07/29/2014 12:00 AM COMMERCIAL REAL ESTATE SALES MANAGER Consult Reviewed 03/10/2015 12:00 AM CHLAMYDIA CULTURE [...] Influenza 07/08/2014 sanofi pasteur PMC Fluzone Quadrivalent [id number] Intramuscular Left Deltoid 07/08/2014 04/15/2014 141 History [...] Policy Number Policy Group Number Start Date [facility] [id number] N/A [facility] [id number] Monday, [address] [facility] [id number] N/A History of Encounters Visit Date Visit Type Provider 09/04/[address] Teodora Vazquez MD 08/01/[address] Teodora Vazquez MD 05/24/2015 Office visit Lexie Lee TIRE SHOP MANAGER 04/05/2015 Office visit Michelle Glover TIRE SHOP MANAGER 03/10/2015 Office visit Feli Reid TIRE SHOP MANAGER 07/29/2014 Office visit Carole Reddy TIRE SHOP MANAGER 07/08/2014 Office visit 07/08/2014 Office visit Jamar Cornelius TIRE SHOP MANAGER 03/19/2014 Office visit Carole Reddy TIRE SHOP MANAGER 01/29/2014 Office visit Carole Reddy TIRE SHOP MANAGER 09/26/2013 Voided Jamar Cornelius TIRE SHOP MANAGER 09/26/2013 Office visit Jamar Cornelius TIRE SHOP MANAGER 09/24/2013 Office visit Jamar Cornelius TIRE SHOP MANAGER 06/08/2013 Office visit Kang Morgan TIRE SHOP MANAGER 06/08/2013 Voided Kang Morgan TIRE SHOP MANAGER 05/22/2013 Office visit Carole Reddy TIRE SHOP MANAGER 05/06/2013 Office visit Jamar Cornelius TIRE SHOP MANAGER 04/09/2013 Office visit Carole Reddy TIRE SHOP MANAGER 03/04/2013 Office visit Carole Reddy TIRE SHOP MANAGER 10/17/2012 Office visit Sherry Domínguez MD 09/03/2012 Office visit Carole Reddy TIRE SHOP MANAGER 08/14/2012 Office visit Sherry Domínguez MD 07/17/2012 Office visit Carole Reddy TIRE SHOP MANAGER 07/02/2012 Office visit Sherry Domínguez MD 05/28/2012 Office visit Sherry Domínguez MD 04/23/2012 Office visit Trinity Torre MD 07/25/2011 Office visit Sanford Soto MD 03/19/2010 Office visit Trinity Torre MD 12/21/2009 Office visit Sherry Domínguez MD
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
[2017-11-11] MEDS ORDERED: RANI150T11 (23:16)
[2017-11-11] MEDS ORDERED: FERR-84 (23:16)
[2017-11-12 02:00] VITALS: BP 111/62
[2017-11-12 06:00] VITALS: BP 107/57
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
[2017-11-12] MEDS ORDERED: ACETAMINOPHEN 500 MG TAB (TYLENOL) PO PRN (06:30)
[2017-11-12] MEDS ORDERED: INFLUENZA TRIvalent 2017-2018 0.5 ML/45 MCG SYR IM ONE (07:30)
[2017-11-12 07:45] VITALS: BP 116/65
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
== END 2017-11-12 07:48 | disposition home or self-care (01) ==
LOC: EDUNIT# 22:30 → ER 22:32 → UNDOADMOB 11-12 00:20 → LDRP 11-12 00:20 → UNDODISOB 11-12 08:00
PROVIDERS: ADMIT Family Medicine; ATTEND Family Medicine
DX: O9A.313 Physical abuse complicating pregnancy, third trimester (principal); Y07.03 Male partner, perpetrator of maltreatment and neglect; Z3A.29 29 weeks gestation of pregnancy
CPT/HCPCS: 76815; G0378

== ENCOUNTER 2018-07-13 13:24 | Emergency (ER) | payer MEDICAID ==
[~2018-07-13 13:24] MED LIST changes: +FERR-84; +RANI150T11
[2018-07-13] MEDS ORDERED: DOXY100T2 PO (18:21)
== END 2018-07-13 14:39 | disposition left against medical advice (07) ==
LOC: EDUNIT# 13:24 → ER 13:25
DX: N93.9 Abnormal uterine and vaginal bleeding, unspecified (principal)

== ENCOUNTER 2018-07-13 14:51 | Emergency (ER) | payer MEDICAID ==
[~2018-07-13] VITALS: Ht 162.6 cm; Wt 83.9 kg
--- OUTSIDE RECORDS SUMMARY | 2018-07-13 14:57 | XMS REPORT | Referral Summary ---
Author Author [facility] Organization [facility] Address Unknown Phone Unavailable Encounter VC Date(s): 10/05/17 - 10/05/17 [facility] [address] [place] [address]- Encounter Diagnosis Single umbilical artery, maternal, antepartum (Discharge Diagnosis) - 10/05/17 Discharge Disposition: 01-Home or Self Care Attending Physician: Noe Jacobo MD Referring Physician: Teodora Vazquez MD Vital Signs Most recent to 1 oldest [Reference Range]: Peripheral Pulse 102 bpm Rate [60-100 bpm] *HI* (10/05/17 9:17 AM) Blood Pressure 114/78 mmHg [90-140/60-90 mmHg] (10/05/17 9:17 AM) Problem List Condition Effective Dates Status Health Status Informant (Confirmed) 10/05/17 Active Allergies, Adverse Reactions, Alerts No Known Medication Allergies Medications Multivitamins with Vitamin B Complex, Vitamin C, Minerals and L- Methylfolate oral capsule 1 caps, Oral, Daily, # 30 caps, 0 Refill(s) Start Date: 10/05/17 Status: Ordered Results No data available for this section Immunizations No data available for this section Procedures No data available for this section Social History Social History Type Response Smoking Status Former smoker, quit more than 30 days ago; Type: Cigarettes entered on: 10/05/17 Assessment and Plan Extracted from: Title: Ambulatory Patient Education Author: Noe Jacobo MD Date: The following Patient Education Materials have been given to the patient: Obstetrics and Gynecology Eating Plan for Women While you are , your body will require additional nutrition to help support your growing baby. It is recommended that you consume: 150 additional calories each day during your first trimester. 300 additional calories each day during your second trimester. 300 additional calories each day during your third trimester. Eating a healthy, well-balanced diet is very important for your health and for your baby's health. You also have a higher need for some vitamins and minerals, such as folic acid, calcium, iron, and vitamin D. WHAT DO I NEED TO KNOW ABOUT EATING DURING ? Do not try to lose weight or go on a diet during . Choose healthy, nutritious foods. Choose of a sandwich with a glass of milk instead of a candy bar or a high-calorie sugar-sweetened beverage. Limit your overall intake of foods that have "empty calories." These are foods that have little nutritional value, such as sweets, desserts, candies, sugar- sweetened beverages, and fried foods. Eat a variety of foods, especially fruits and vegetables. Take a vitamin to help meet the additional needs during , specifically for folic acid, iron, calcium, and vitamin D. Remember to stay active. Ask your health care provider for exercise recommendations that are specific to you. Practice good food safety and cleanliness, such as washing your hands before you eat and after you prepare raw meat. This helps to prevent foodborne illnesses, such as listeriosis, that can be very dangerous for your baby. Ask your health care provider for more information about listeriosis. WHAT DOES 150 EXTRA CALORIES LOOK LIKE? Healthy options for an additional 150 calories each day could be any of the following: Plain low-fat yogurt (6-8 oz) with cup of berries. 1 apple with 2 teaspoons of peanut butter. Cut-up vegetables with cup of hummus. Low-fat chocolate milk (8 oz or 1 cup). 1 string cheese with 1 medium orange. of a peanut butter and jelly sandwich on whole-wheat bread (1 tsp of peanut butter). For 300 calories, you could eat two of those healthy options each day. WHAT IS A HEALTHY AMOUNT OF WEIGHT TO GAIN? The recommended amount of weight for you to gain is based on your pre- BMI. If your pre- BMI was: Less than 18 (underweight), you should gain 28 40 lb. 18 24.9 (normal), you should gain 25 35 lb. 25 29.9 (overweight), you should gain 15 25 lb. Greater than 30 (obese), you should gain 11 20 lb. WHAT IF I AM HAVING TWINS OR MULTIPLES? Generally, women who will be having twins or multiples may need to increase their daily calories by 300 600 calories each day. The recommended range for total weight gain is 25 54 lb, depending on your pre- BMI. Talk with your health care provider for specific guidance about additional nutritional needs, weight gain, and exercise during your . WHAT FOODS CAN I EAT? Grains Any grains. Try to choose whole grains, such as whole-wheat bread, oatmeal, or brown rice. Vegetables Any vegetables. Try to eat a variety of colors and types of vegetables to get a full range of vitamins and minerals. Remember to wash your vegetables well before eating. Fruits Any fruits. Try to eat a variety of colors and types of fruit to get a full range of vitamins and minerals. Remember to wash your fruits well before eating. Meats and Other Protein Sources Lean meats, including chicken, turkey, fish, and lean cuts of beef, veal, or pork. Make sure that all meats are cooked to "well done." Tofu. Tempeh. Beans. Eggs. Peanut butter and other nut butters. Seafood, such as shrimp, crab, and lobster. If you choose fish, select types that are higher in omega-3 fatty acids , including salmon, chin, mussels, trout, sardines, and pollock. Make sure that all meats are cooked to food-safe temperatures. Dairy Pasteurized milk and milk alternatives. Pasteurized yogurt and pasteurized cheese. Cottage cheese. Sour cream. Beverages Water. Juices that contain 100% fruit juice or vegetable juice. Caffeine-free teas and decaffeinated coffee. Drinks that contain caffeine are okay to drink, but it is better to avoid caffeine. Keep your total caffeine intake to less than 200 mg each day (12 oz of coffee, tea, or soda) or as directed by your health care provider. Condiments Any pasteurized condiments. Sweets and Desserts Any sweets and desserts. Fats and Oils Any fats and oils. The items listed above may not be a complete list of recommended foods or beverages. Contact your dietitian for more options. WHAT FOODS ARE NOT RECOMMENDED? Vegetables Unpasteurized (raw) vegetable juices. Fruits Unpasteurized (raw) fruit juices. Meats and Other Protein Sources Cured meats that have nitrates, such as burnham, salami, and hotdogs. Luncheon meats, bologna, or other deli meats (unless they are reheated until they are steaming hot). Refrigerated morris, meat spreads from a meat counter, smoked seafood that is found in the refrigerated section of a store. Raw fish, such as sushi or sashimi. High mercury content fish, such as tilefish, shark, swordfish , and valeria mackerel. Raw meats, such as tuna or beef tartare. Undercooked meats and poultry. Make sure that all meats are cooked to food-safe temperatures. Dairy Unpasteurized (raw) milk and any foods that have raw milk in them. Soft cheeses , such as feta, queso smith, queso fresco, Brie, Camembert cheeses, blue- veined cheeses, and Panela cheese (unless it is made with pasteurized milk, which must be stated on the label). Beverages Alcohol. Sugar-sweetened beverages, such as sodas, teas, or energy drinks. Condiments Homemade fermented foods and drinks, such as pickles, sauerkraut, or kombucha drinks. (Store-bought pasteurized versions of these are okay.) Other Salads that are made in the store, such as ham salad, chicken salad, egg salad, tuna salad, and seafood salad. The items listed above may not be a complete list of foods and beverages to avoid. Contact your dietitian for more information. This information is not intended to replace advice given to you by your health care provider. Make sure you discuss any questions you have with your health care provider. Document Released: 05/29/2015 Document Revised: 12/05/2016 Document Reviewed: Elsevier Interactive Patient Education 2017 [employer] No follow up information was provided.
--- OUTSIDE RECORDS SUMMARY | 2018-07-13 14:58 | XMS REPORT ---
Author Author Teodora Vazquez [facility] Address [address] [place], [place] [id number] Care Team Providers Care Store Operations Associate Name Role Phone Teodora Vazquez PCP Allergies and Adverse Reactions Name Reaction Notes NO KNOWN DRUG ALLERGIES Plan of Treatment Not available. Medications Active Name Start Date Estimated Completion Date SIG Comments ParaGard T 380A 380 square mm intrauterine intrauterine device 02/23/2018 place 1 device by intrauterine route daily Name Start Date Expiration Date SIG [...] route every 12 hours for 10 days cephalexin 500 mg oral capsule 01/23/2018 01/30/2018 take 1 capsule by oral route 3 times a day for 7 days Discontinued Name Start Date Discontinued Date [...] TAKE 1 TABLET BY MOUTH EVERY DAY Vitamin oral tablet 02/22/2018 take 1 tablet by oral route once daily Carafate 1 gram oral tablet 11/06/2017 11/06/2017 take 1 tablet (1 gram) by oral route 4 times per day on an empty stomach 1 hour before meals and at bedtime Zantac 150 mg oral tablet 11/06/2017 02/22/2018 take 1 tablet (150 mg) by oral route 2 times per day ferrous sulfate 325 mg (65 mg iron) oral tablet 11/07/2017 02/22/2018 take 1 tablet by oral route every other day Diflucan 150 mg oral tablet 12/28/2017 02/22/2018 take 1 tablet (150 mg) by oral route once Problem List Description Status Onset Asthma Active Vital Signs Date Time BP-Sys(mm[Hg] BP-Awa(mm[Hg]) HR(bpm) RR(rpm) Temp WT HT HC BMI BSA BMI Percentile O2 Sat(%) 04/16/2018 3:04:00 PM 132 mmHg 70 mmHg 83 bpm 97.9 F 191.25 lbs 64 in 32.8277 kg/m 1.9792 m 02/23/2018 10:06:00 AM 121 mmHg 75 mmHg 81 bpm 98.1 F 190.125 lbs 64 in 32.63 kg/m2 1.97 m2 02/22/2018 10:43:00 AM 120 mmHg 74 mmHg 87 bpm 98.2 F 190.125 lbs 64 in 32.63 kg/m2 1.9734 m 01/22/2018 5:47:00 PM 102 bpm 20 rpm 98.1 F 193 lbs 64 in 33.128 kg/m 1.99 m2 98 % 08/01/2017 2:59:00 PM 118 mmHg 76 mmHg [...] rpm 97.2 F 156 lbs 64 in 26.7771 kg/m 1.7875 m 86.9 % 07/29/2014 3:26:00 PM 104 mmHg 60 mmHg 83 bpm 16 rpm 97.1 F 151.5 lbs 64 in 26.00 kg/m2 1.76 m2 85.1 % 100 % 07/08/2014 3:40:00 PM 130 mmHg 80 mmHg 90 bpm 16 rpm 97.4 F 149 lbs 64 in 25.5755 kg/m 1.747 m 83.4 % 98 % 03/19/2014 8:13:00 AM 100 mmHg 74 mmHg 84 bpm 18 rpm 97.6 F 146.4 lbs 64 in 25.13 kg/m2 1.73 m2 81.9 % 100 % 01/29/2014 2:05:00 PM [...] rpm 96.9 F 150 lbs 64 in 25.75 kg/m2 1.75 m2 86 % 05/22/2013 11:19:00 AM 98 mmHg 62 mmHg 73 bpm 18 rpm 97.9 F 152.4 lbs 64 in 26.1591 kg/m 1.7668 m 87.5 % 98 % 05/06/2013 4:26:00 PM 71 bpm 18 rpm 98.2 F 150.25 lbs 65.5 in 24.62 kg/m2 1.77 m2 81.2 % 98 % 04/09/2013 8:07:00 AM 98 mmHg 70 mmHg 73 bpm 18 rpm 97.4 F 146 lbs 65.5 in 23.9259 kg/m 1.7494 m 77.3 % 99 % 03/04/2013 8:37:00 AM 102 mmHg 64 mmHg 74 bpm 18 rpm 98 F 145 lbs 65.5 in 23.76 kg/m2 1.74 m2 76.5 % 100 % 10/17/2012 3:55:00 PM 100 mmHg 60 mmHg 76 bpm 16 rpm 97.4 F 136.25 lbs 65.5 in 22.3281 kg/m 1.69 m 66.4 % 99 % 09/03/2012 3:42:00 PM 78 bpm 18 rpm 98.2 F 136 lbs 64 in 23.34 kg /m2 1.67 m2 75.2 % 100 % 08/14/2012 1:10:00 PM [...] THYROXINE Reviewed 09/20/2017 12:00 AM Consult/Referral Reviewed 11/23/2017 12:00 AM OB US LIMITED FETUS(S) Reviewed 11/02/2017 12:00 AM COMPREHEN METABOLIC PANEL Reviewed 11/02/2017 12:00 AM ASSAY OF LIPASE Reviewed 11/02/2017 12:00 AM ASSAY OF AMYLASE Reviewed 11/02/2017 12:00 AM ECHO EXAM OF ABDOMEN Reviewed 11/06/2017 12:00 AM Type and screen Reviewed 11/06/2017 12:00 AM GLUCOSE TOLERANCE TEST (GTT) Reviewed 11/06/2017 12:00 AM COMPLETE CBC W/AUTO DIFF WBC Reviewed 11/06/2017 12:00 AM ASSAY OF FERRITIN Reviewed 11/06/2017 12:00 AM ASSAY THYROID STIM HORMONE Reviewed 11/06/2017 12:00 AM ASSAY OF FREE THYROXINE Reviewed 01/22/2018 12:00 AM Rocephin 1 gram Injection Reviewed 01/29/2018 12:00 AM THER/PROPH/DIAG INJ SC/IM Reviewed 02/22/2018 12:00 AM CYTOPATH C/V THIN LAYER Reviewed 02/22/2018 12:00 AM SPECIMEN HANDLING OFFICE-LAB Reviewed 02/23/2018 12:00 AM INSERT INTRAUTERINE DEVICE Reviewed 02/23/2018 12:00 AM Paraguard T380A -INTRAUTERINE COPPER CONTRACEPTIVE Reviewed 01/29/2014 12:00 AM COMPLETE CBC W/AUTO [...] THYROID STIM HORMONE Reviewed 07/29/2014 12:00 AM ECONOMIC FORECASTER Consult Reviewed 03/10/2015 12:00 AM CHLAMYDIA CULTURE [...] PM FREE T4 0.74 TSH 1.440 uIU/mL 11/03/2017 10:59 AM GLUCOSE 78.0 mg/dLSODIUM 137.0 mmol/LPOTASSIUM 4.0 mmol/ LCHLORIDE 105.0 mmol/LCO2 22.0 mmol/LBUN 8.0 mg/dLCREATININE 0.60 mg/dLSGOT/AST 16.0 IU/LSGPT/ALT 14.0 IU/LALK PHOS 71.0 IU/LTOTAL PROTEIN 6.40 g/dLALBUMIN 3.80 g/dLTOTAL BILI 0.40 mg/dLCALCIUM 8.70 mg/dLAGE 22 GFR NonAA 125 GFR AA 152 eGFR >60 mL/min/1.73meGFR AA* >60 AMYLASE 58 IU/LLIPASE 12.0 U/L 11/06/2017 12:00 PM FERRITIN 9.0 ng/mLTSH 1.50 uIU/mLFREE T4 0.84 WBC 10.4 RBC 4.42 HGB 13.90 g/dLHCT 42.0 %MCV 95.0 fLMCH 31.40 pgMCHC 33.10 g/dLRDW SD 45 RDW CV 13.0 %MPV 9.50 fLPLT 251 NRBC# 0.00 NRBC% 0.0 %NEUT 67.0 %%LYMP 24.90 %% MONO 6.20 %%EOS 0.50 %%BASO 0.30 %#NEUT 7.00 #LYMP 2.60 #MONO 0.65 #EOS 0.05 # BASO 0.03 MANUAL DIFF NOT IND History Of Immunizations Name Date Admin Mfg Name Mfg Code Trade Name Lot# Route Inj Vis Given Vis Pub CVX Influenza 07/08/2014 sanofi pasteur PMC Fluzone Quadrivalent [id number] Intramuscular Left Deltoid 07/08/2014 04/15/2014 141 History [...] transient, second trimester Nov 06 2017 10:51AM Mastitis Jan 22 2018 5:48PM 6 weeks follow-up Feb 22 2018 10:44AM Encounter for insertion of copper intrauterine contraceptive device (IUD) Feb 23 2018 10:10AM Checking of intrauterine device Apr 16 2018 3:06PM Payers Insurance Name Company Name Plan Name Plan Number Policy Number Policy Group Number Start Date [facility] [id number] N[facility] [id number] Monday, 2009 [facility] [id number] N/A [facility] [id number] N/A History of Encounters Visit Date Visit Type Provider 04/16/[address] Teodora Vazquez MD 02/23/[address] Teodora Vazquez MD 02/22/[address] Teodora Vazquez MD 01/22/2018 Office visit Jamar Cornelius APRN 01/10/[address] Teodora Vazquez MD 01/04/[address] Teodora Vazquez MD 12/28/[address] Teodora Vazquez MD 12/23/2017 Hospital Kang Staley MD 12/18/[address] Teodora Vazquez MD 11/23/[address] Teodora Vazquez MD 11/06/[address] Teodora Vazquez MD 10/17/2017 [facility] Kang Staley MD 10/12/[address] Teodora Vazquez MD 09/15/[address] Teodora Vazquez MD 09/04/[address] Teodora Vazquez MD 08/01/[address] Teodora Vazquez MD 05/24/2015 Office visit Lexie Lee COPPER MINER 04/05/2015 Office visit Michelle Glover COPPER MINER 03/10/2015 Office visit Feli Reid COPPER MINER 07/29/2014 Office visit Carole Reddy COPPER MINER 07/08/2014 Office visit 07/08/2014 Office visit Jamar Cornelius COPPER MINER 03/19/2014 Office visit Carole Reddy COPPER MINER 01/29/2014 Office visit Carole Reddy COPPER MINER 09/26/2013 Voided Jamar Cornelius COPPER MINER 09/26/2013 Office visit Jamar Cornelius COPPER MINER 09/24/2013 Office visit Jamar Cornelius COPPER MINER 06/08/2013 Office visit Kang Morgan COPPER MINER 06/08/2013 Voided Kang Morgan COPPER MINER 05/22/2013 Office visit Carole Reddy COPPER MINER 05/06/2013 Office visit Jamar Cornelius COPPER MINER 04/09/2013 Office visit Carole Reddy COPPER MINER 03/04/2013 Office visit Carole Reddy COPPER MINER 10/17/2012 Office visit Sherry Domínguez MD 09/03/2012 Office visit Carole Reddy COPPER MINER 08/14/2012 Office visit Sherry Domínguez MD 07/17/2012 Office visit Carole Reddy COPPER MINER 07/02/2012 Office visit Sherry Domínguez MD 05/28/2012 Office visit Sherry Domínguez MD 04/23/2012 Office visit Trinity Torre MD 07/25/2011 Office visit Sanford Soto MD 03/19/2010 Office visit Trinity Torre MD 12/21/2009 Office visit Sherry Domínguez MD
--- OUTSIDE RECORDS SUMMARY | 2018-07-13 15:00 | XMS REPORT ---
Author Author Teodora Vazquez [facility] Address [address] [place], [place] [id number] Care Team Providers Care Greenhouse Technician Name Role Phone Teodora Vazquez PCP Allergies [...] mg (65 mg iron) oral tablet 11/07/2017 take 1 tablet by oral route every other day Name Start Date Expiration Date SIG [...] bpm 98.6 F 180.5 lbs 64 in 30.9824 kg/m 1.9228 m 05/24/2015 1:39:00 PM 93 bpm 20 rpm [...] 12:00 AM ASSAY OF FREE THYROXINE Reviewed 01/29/2014 12:00 AM COMPLETE CBC W/AUTO [...] THYROID STIM HORMONE Reviewed 07/29/2014 12:00 AM CERTIFIED CORPORATE TRAVEL EXECUTIVE Consult Reviewed 03/10/2015 12:00 AM CHLAMYDIA CULTURE [...] Influenza 07/08/2014 sanofi pasteur PMC Fluzone Quadrivalent [id number] Intramuscular Left Deltoid 07/08/2014 04/15/2014 141 History [...] Policy Number Policy Group Number Start Date [facility] [id number] N/A [facility] [id number] Monday, 2009 [facility] [id number] N/A History of Encounters Visit Date Visit Type Provider 12/18/[address] Teodora Vazquez MD 11/23/[address] Teodora Vazquez MD 11/06/[address] Teodora Vazquez MD 10/17/2017 [facility] Kang Staley MD 10/12/[address] Teodora Vazquez MD 09/15/[address] Teodora Vazquez MD 09/04/[address] Teodora Vazquez MD 08/01/[address] Teodora Vazquez MD 05/24/2015 Office visit Lexie Lee SLOT TAG INSERTER 04/05/2015 Office visit Michelle Glover SLOT TAG INSERTER 03/10/2015 Office visit Feli Reid SLOT TAG INSERTER 07/29/2014 Office visit Carole Reddy SLOT TAG INSERTER 07/08/2014 Office visit 07/08/2014 Office visit Jamar Cornelius SLOT TAG INSERTER 03/19/2014 Office visit Carole Reddy SLOT TAG INSERTER 01/29/2014 Office visit Carole Reddy SLOT TAG INSERTER 09/26/2013 Voided Jamar Cornelius SLOT TAG INSERTER 09/26/2013 Office visit Jamar Cornelius SLOT TAG INSERTER 09/24/2013 Office visit Jamar Cornelius SLOT TAG INSERTER 06/08/2013 Office visit Kang Morgan SLOT TAG INSERTER 06/08/2013 Voided Kang Morgan SLOT TAG INSERTER 05/22/2013 Office visit Carole Reddy SLOT TAG INSERTER 05/06/2013 Office visit Jamar Cornelius SLOT TAG INSERTER 04/09/2013 Office visit Carole Reddy SLOT TAG INSERTER 03/04/2013 Office visit Carole Reddy SLOT TAG INSERTER 10/17/2012 Office visit Sherry Domínguez MD 09/03/2012 [...]
--- OUTSIDE RECORDS SUMMARY | 2018-07-13 15:01 | XMS REPORT ---
Author Author Teodora Vazquez [facility] Address [address] [place], [place] [address] Care Team Providers Care Airport Sales Agent Name Role Phone Teodora Vazquez PCP [...] day Diflucan 150 mg oral tablet 12/28/2017 take 1 tablet (150 mg) by oral route once Name Start Date Expiration Date SIG Comments [...] THYROID STIM HORMONE Reviewed 07/29/2014 12:00 AM FUNCTIONAL TESTER TYPEWRITERS Consult Reviewed 03/10/2015 12:00 AM CHLAMYDIA CULTURE [...] Influenza 07/08/2014 sanofi pasteur PMC Fluzone Quadrivalent [id number] Intramuscular Left Deltoid 07/08/2014 04/15/2014 141 History [...] Policy Number Policy Group Number Start Date [facility] [id number] N/A [facility] [id number] Monday, 2009 [facility] [id number] N/A [facility] [id number] N/A History of Encounters Visit Date Visit Type Provider 01/04/[address] Teodora Vazquez MD 12/28/[address] Teodora Vazquez MD 12/23/2017 [facility] Kang Staley MD 12/18/[address] Teodora Vazquez MD 11/23/[address] Teodora Vazquez MD 11/06/[address] Teodora Vazquez MD 10/17/2017 [facility] Kang Staley MD 10/12/[address] Teodora Vazquez MD 09/15/[address] Teodora Vazquez MD 09/04/[address] Teodora Vazquez MD 08/01/[address] Teodora Vazquez MD 05/24/2015 Office visit Lexie Lee HEADLIGHT ASSEMBLER 04/05/2015 Office visit Michelle Glover HEADLIGHT ASSEMBLER 03/10/2015 Office visit Feli Reid HEADLIGHT ASSEMBLER 07/29/2014 Office visit Carole Reddy HEADLIGHT ASSEMBLER 07/08/2014 Office visit 07/08/2014 Office visit Jamar Cornelius HEADLIGHT ASSEMBLER 03/19/2014 Office visit Carole Reddy HEADLIGHT ASSEMBLER 01/29/2014 Office visit Carole Reddy HEADLIGHT ASSEMBLER 09/26/2013 Voided Jamar Cornelius HEADLIGHT ASSEMBLER 09/26/2013 Office visit Jamar Cornelius HEADLIGHT ASSEMBLER 09/24/2013 Office visit Jamar Cornelius HEADLIGHT ASSEMBLER 06/08/2013 Office visit Kang Morgan HEADLIGHT ASSEMBLER 06/08/2013 Voided Kang Morgan HEADLIGHT ASSEMBLER 05/22/2013 Office visit Carole Reddy HEADLIGHT ASSEMBLER 05/06/2013 Office visit Jamar Ashli HEADLIGHT ASSEMBLER 04/09/2013 Office visit Carole Reddy HEADLIGHT ASSEMBLER 03/04/2013 Office visit Carole Reddy HEADLIGHT ASSEMBLER 10/17/2012 Office visit Sherry Domínguez MD 09/03/2012 Office visit Carole Reddy HEADLIGHT ASSEMBLER 08/14/2012 Office visit Sherry Domínguez MD 07/17/2012 Office visit Carole Reddy HEADLIGHT ASSEMBLER 07/02/2012 Office visit Sherry Domínguez MD 05/28/2012 Office visit Sherry Domínguez MD 04/23/2012 Office visit Trinity Torre MD 07/25/2011 Office visit Sanford Soto MD 03/19/2010 Office visit Trinity Torre MD 12/21/2009 Office visit Sherry Domínguez MD
--- OUTSIDE RECORDS SUMMARY | 2018-07-13 15:04 | XMS REPORT ---
Author Author Teodora Vazquez [facility] Address [address] [place], [place] [id number] Care Team Providers Care Chamber Magistrate Name Role Phone Teodora Vazquez PCP Allergies [...] THYROID STIM HORMONE Reviewed 07/29/2014 12:00 AM DIRECTOR REGULATORY AFFAIRS Consult Reviewed 03/10/2015 12:00 AM CHLAMYDIA CULTURE [...] Influenza 07/08/2014 sanofi pasteur PMC Fluzone Quadrivalent [id number] Intramuscular Left Deltoid 07/08/2014 04/15/2014 141 History [...] Number Policy Group Number Start Date [facility] [id number] N/A [facility] [id number] Monday, 2009 [facility] [id number] N/A [facility] [id number] N/A History of Encounters Visit Date Visit Type Provider 01/04/[address] Teodora Vazquez MD 12/28/[address] Teodora Vazquez MD 12/23/2017 [facility] Kang Staley MD 12/18/[address] Teodora Vazquez MD 11/23/[address] Teodora Vazquez MD 11/06/[address] Teodora Vazquez MD 10/17/2017 [facility] Kang Staley MD 10/12/[address] Teodora Vazquez MD 09/15/[address] Teodora Vazquez MD 09/04/[address] Teodora Vazquez MD 08/01/[address] Teodora Vazquez MD 05/24/2015 Office visit Lexie Lee PRESSED OR BLOWN GLASS WORKER 04/05/2015 Office visit Michelle Glover PRESSED OR BLOWN GLASS WORKER 03/10/2015 Office visit Feli Reid PRESSED OR BLOWN GLASS WORKER 07/29/2014 Office visit Carole Reddy PRESSED OR BLOWN GLASS WORKER 07/08/2014 Office visit 07/08/2014 Office visit Jamar Cornelius PRESSED OR BLOWN GLASS WORKER 03/19/2014 Office visit Carole Reddy PRESSED OR BLOWN GLASS WORKER 01/29/2014 Office visit Carole Reddy PRESSED OR BLOWN GLASS WORKER 09/26/2013 Voided Jamar Cornelius PRESSED OR BLOWN GLASS WORKER 09/26/2013 Office visit Jamar Cornelius PRESSED OR BLOWN GLASS WORKER 09/24/2013 Office visit Jamar Cornelius PRESSED OR BLOWN GLASS WORKER 06/08/2013 Office visit Kang Morgan PRESSED OR BLOWN GLASS WORKER 06/08/2013 Voided Kang Morgan PRESSED OR BLOWN GLASS WORKER 05/22/2013 Office visit Carole Reddy PRESSED OR BLOWN GLASS WORKER 05/06/2013 Office visit Jamar Ashli PRESSED OR BLOWN GLASS WORKER 04/09/2013 Office visit Carole Reddy PRESSED OR BLOWN GLASS WORKER 03/04/2013 Office visit Carole Reddy PRESSED OR BLOWN GLASS WORKER 10/17/2012 Office visit Sherry Domínguez MD 09/03/2012 Office visit Carole Reddy PRESSED OR BLOWN GLASS WORKER 08/14/2012 Office visit Sherry Domínguez MD 07/17/2012 Office visit Carole Reddy PRESSED OR BLOWN GLASS WORKER 07/02/2012 Office visit Sherry Domínguez MD 05/28/2012 Office visit Sherry Domínguez MD 04/23/2012 Office visit Trinity Torre MD 07/25/2011 Office visit Sanford Soto MD 03/19/2010 Office visit Trinity Torre MD 12/21/2009 Office visit Sherry Domínguez MD
--- OUTSIDE RECORDS SUMMARY | 2018-07-13 15:05 | XMS REPORT ---
Author Author Teodora Vazquez [facility] Address [address] [place], [place] [address] Care Team Providers Care Sheep Farm Manager Name Role Phone Teodora Vazquez PCP Allergies [...] THYROID STIM HORMONE Reviewed 07/29/2014 12:00 AM SAFETY AND HEALTH MANAGER Consult Reviewed 03/10/2015 12:00 AM CHLAMYDIA [...] Influenza 07/08/2014 sanofi pasteur PMC Fluzone Quadrivalent [id number] Intramuscular Left Deltoid 07/08/2014 04/15/2014 141 History [...] Policy Group Number Start Date [facility] [id number] N/A [facility] UMR [id number] Monday, 2009 [facility] [id number] N/A History of Encounters Visit Date Visit Type Provider 12/18/[address] Teodora Vazquez MD 11/23/[address] Teodora Vazquez MD 11/06/[address] Teodora Vazquez MD 10/17/2017 [facility] Kang Staley MD 10/12/[address] Teodora Vazquez MD 09/15/[address] Teodora Vazquez MD 09/04/[address] Teodora Vazquez MD 08/01/[address] Teodora Vazquez MD 05/24/2015 Office visit Lexie Lee SUPERVISOR YARD 04/05/2015 Office visit Michelle Glover SUPERVISOR YARD 03/10/2015 Office visit Feli Reid SUPERVISOR YARD 07/29/2014 Office visit Carole Reddy SUPERVISOR YARD 07/08/2014 Office visit 07/08/2014 Office visit Jamar Cornelius SUPERVISOR YARD 03/19/2014 Office visit Carole Reddy SUPERVISOR YARD 01/29/2014 Office visit Carole Reddy SUPERVISOR YARD 09/26/2013 Voided Jamar Cornelius SUPERVISOR YARD 09/26/2013 Office visit Jamar Cornelius SUPERVISOR YARD 09/24/2013 Office visit Jamar Cornelius SUPERVISOR YARD 06/08/2013 Office visit Kang Morgan SUPERVISOR YARD 06/08/2013 Voided Kang Morgan SUPERVISOR YARD 05/22/2013 Office visit Carole Reddy SUPERVISOR YARD 05/06/2013 Office visit Jamar Cornelius SUPERVISOR YARD 04/09/2013 Office visit Carole Reddy SUPERVISOR YARD 03/04/2013 Office visit Carole Reddy SUPERVISOR YARD 10/17/2012 Office visit Sherry Domínguez MD 09/03/2012 [...]
--- OUTSIDE RECORDS SUMMARY | 2018-07-13 15:06 | XMS REPORT ---
Author Author Jamar Cornelius [facility] Address [address] [place], [place] [id number] Care Team Providers Care Pharmacy Picking Tech Name Role Phone Jamar Cornelius PCP Allergies and Adverse Reactions Name Reaction [...] tablet (150 mg) by oral route once cephalexin 500 mg oral capsule 01/23/2018 01/30/2018 take 1 capsule by oral route 3 times a day for 7 days Name Start Date Expiration Date SIG Comments [...] HC BMI BSA BMI Percentile O2 Sat(%) 01/22/2018 5:47:00 PM 102 bpm 20 rpm 98.1 F 193 lbs 64 in 33.128 kg/m 1.9882 m 98 % 08/01/2017 2:59:00 PM 118 mmHg [...] 01/29/2018 12:00 AM THER/PROPH/DIAG INJ SC/IM Reviewed 01/29/2014 12:00 AM COMPLETE CBC W/AUTO [...] THYROID STIM HORMONE Reviewed 07/29/2014 12:00 AM SHACKLER Consult Reviewed 03/10/2015 12:00 AM CHLAMYDIA CULTURE [...] Influenza 07/08/2014 sanofi pasteur PMC Fluzone Quadrivalent [id number] Intramuscular Left Deltoid 07/08/2014 04/15/2014 141 History [...] 2017 10:51AM Mastitis Jan 22 2018 5:48PM Payers Insurance Name Company Name Plan Name Plan Number Policy Number Policy Group Number Start Date [facility] [id number] N/A [facility] [id number] Monday, 2009 [facility] [id number] N/A [facility] [id number] N/A History of Encounters Visit Date Visit Type Provider 01/22/2018 Office visit Jamar Cornelius APRN 01/10/[address] Teodora Vazquez MD 01/04/[address] Teodora Vazquez MD 12/28/[address] Teodora Vazquez MD 12/23/2017 [facility] Kang Staley MD 12/18/[address] Teodora Vazquez MD 11/23/[address] Teodora Vazquez MD 11/06/[address] Teodora Vazquez MD 10/17/2017 [facility] Kang Staley MD 10/12/[address] Teodora Vazquez MD 09/15/[address] Teodora Vazquez MD 09/04/[address] Teodora Vazquez MD 08/01/[address] Teodora Vazquez MD 05/24/2015 Office visit Lexie Lee APRN 04/05/2015 Office visit Michelle Glover PRINT FINISHER 03/10/2015 Office visit Feli Reid PRINT FINISHER 07/29/2014 Office visit Carole Reddy PRINT FINISHER 07/08/2014 Office visit 07/08/2014 Office visit Jamar Cornelius PRINT FINISHER 03/19/2014 Office visit Carole Reddy PRINT FINISHER 01/29/2014 Office visit Carole Reddy PRINT FINISHER 09/26/2013 Voided Jamar Reyesran PRINT FINISHER 09/26/2013 Office visit Jamar Cornelius PRINT FINISHER 09/24/2013 Office visit Jamar Cornelius PRINT FINISHER 06/08/2013 Office visit Kang JoseMack Morgan PRINT FINISHER 06/08/2013 Voided Kangtank Clementemond PRINT FINISHER 05/22/2013 Office visit Carole Reddy PRINT FINISHER 05/06/2013 Office visit Jamar Cornelius PRINT FINISHER 04/09/2013 Office visit Carole Reddy PRINT FINISHER 03/04/2013 Office visit Carole Reddy PRINT FINISHER 10/17/2012 Office visit Sherry Domínguez MD 09/03/2012 Office visit Carole Reddy PRINT FINISHER 08/14/2012 Office visit Sherry Domínguez MD 07/17/2012 Office visit Carole Reddy PRINT FINISHER 07/02/2012 Office visit Sherry Domínguez MD 05/28/2012 Office visit Sherry Domínguez MD 04/23/2012 Office visit Trinity Torre MD 07/25/2011 Office visit Sanford Soto MD 03/19/2010 Office visit Trinity Torre MD 12/21/2009 Office visit Sherry Domínguez MD
--- OUTSIDE RECORDS SUMMARY | 2018-07-13 15:09 | XMS REPORT ---
Author Author Teodora Vazquez [facility] Address [address] [place], [place] [address] Care Team Providers Care Platform Worker Name Role Phone Teodora Vazquez PCP Allergies and Adverse Reactions Name Reaction Notes NO KNOWN DRUG ALLERGIES Plan of Treatment Planned Activity Comments Planned Date Planned Time Plan/Goal PAP Smear, thin prep 02/22/2018 12:00 AM Medications Active Name Start Date [...] HC BMI BSA BMI Percentile O2 Sat(%) 02/23/2018 10:06:00 AM 121 mmHg 75 mmHg 81 bpm 98.1 F 190.125 lbs 64 in 32.6345 kg/m 1.9734 m 02/22/2018 10:43:00 AM 120 mmHg 74 mmHg 87 bpm 98.2 F 190.125 lbs 64 in 32.63 kg/m2 1.97 m2 01/22/2018 5:47:00 PM 102 bpm 20 rpm [...] STIM HORMONE Reviewed 07/29/2014 12:00 AM DIRECTOR OF HEALTH CARE MARKETING Consult Reviewed 03/10/2015 12:00 AM CHLAMYDIA CULTURE [...] Influenza 07/08/2014 sanofi pasteur PMC Fluzone Quadrivalent [id number] Intramuscular Left Deltoid 07/08/2014 04/15/2014 141 History [...] contraceptive device (IUD) Feb 23 2018 10:10AM Payers Insurance Name Company Name Plan Name Plan Number Policy Number Policy Group Number Start Date [facility] [id number] N/A [facility] UMR [id number] Monday, 2009 [facility] [id number] N/A [facility] [id number] N/A History of Encounters Visit Date Visit Type Provider 02/23/[address] Teodora Vazquez MD 02/22/[address] Teodora Vazquez MD 01/22/2018 Office visit Jamar Cornelius APRN 01/10/[address] Teodora Vazquez MD 01/04/[address] Teodora Vazquez MD 12/28/[address] Teodora Vazquez MD 12/23/2017 [facility] Kang Staley MD 12/18/[address] Teodora Vazquez MD 11/23/[address] Teodora Vazquez MD 11/06/[address] Teodora Vazquez MD 10/17/2017 [facility] Kang Staley MD 10/12/[address] Teodora Vazquez MD 09/15/[address] Teodora Vazquez MD 09/04/[address] Teodora Vazquez MD 08/01/[address] Teodora Vazquez MD 05/24/2015 Office visit Lexie Lee SUPERVISOR SUNGLASSES 04/05/2015 Office visit Michelle Glover SUPERVISOR SUNGLASSES 03/10/2015 Office visit Feli Reid SUPERVISOR SUNGLASSES 07/29/2014 Office visit Carole Reddy SUPERVISOR SUNGLASSES 07/08/2014 Office visit 07/08/2014 Office visit Jamar Cornelius SUPERVISOR SUNGLASSES 03/19/2014 Office visit Carole Reddy SUPERVISOR SUNGLASSES 01/29/2014 Office visit Carole Reddy SUPERVISOR SUNGLASSES 09/26/2013 Voided Jamar Cornelius SUPERVISOR SUNGLASSES 09/26/2013 Office visit Jamar Cornelius SUPERVISOR SUNGLASSES 09/24/2013 Office visit Jamar Cornelius SUPERVISOR SUNGLASSES 06/08/2013 Office visit Kang Morgan SUPERVISOR SUNGLASSES 06/08/2013 Voided Kang Morgan SUPERVISOR SUNGLASSES 05/22/2013 Office visit Carole Reddy SUPERVISOR SUNGLASSES 05/06/2013 Office visit Jamar Cornelius SUPERVISOR SUNGLASSES 04/09/2013 Office visit Carole Reddy SUPERVISOR SUNGLASSES 03/04/2013 Office visit Carole Reddy SUPERVISOR SUNGLASSES 10/17/2012 Office visit Sherry Domínguez MD 09/03/2012 Office visit Carole Reddy SUPERVISOR SUNGLASSES 08/14/2012 Office visit Sherry Domínguez MD 07/17/2012 Office visit Carole Reddy SUPERVISOR SUNGLASSES 07/02/2012 Office visit Sherry Domínguez MD 05/28/2012 Office visit Sherry Domínguez MD 04/23/2012 Office visit Trinity Torre MD 07/25/2011 Office visit Sanford Soto MD 03/19/2010 Office visit Triinty Torre MD 12/21/2009 Office visit Sherry Domínguez MD
--- OUTSIDE RECORDS SUMMARY | 2018-07-13 15:13 | XMS REPORT ---
Author Author Teodora Vazquez [facility] Address [address] [place], [place] [id number] Care Team Providers Care Outside Plant Technician Name Role Phone Teodora Vazquez PCP [...] THYROID STIM HORMONE Reviewed 07/29/2014 12:00 AM SHUTTLE THREADER Consult Reviewed 03/10/2015 12:00 AM CHLAMYDIA CULTURE [...] Influenza 07/08/2014 sanofi pasteur PMC Fluzone Quadrivalent [id number] Intramuscular Left Deltoid 07/08/2014 04/15/2014 141 History [...] Policy Number Policy Group Number Start Date [facility] [id number] N/A [facility] [id number] Monday, 2009 [facility] [id number] N/A [facility] [id number] N/A History of Encounters Visit Date Visit Type Provider 01/04/[address] Teodora Vazquez MD 12/28/[address] Teodora Vazquez MD 12/23/2017 [facility] Kang Staley MD 12/18/[address] Teodora Vazquez MD 11/23/[address] Teodora Vazquez MD 11/06/[address] Teodora Vazquez MD 10/17/2017 [facility] Kang Staley MD 10/12/[address] Teodora Vazquez MD 09/15/[address] Teodora Vazquez MD 09/04/[address] Teodora Vazquez MD 08/01/[address] Teodora Vazquez MD 05/24/2015 Office visit Lexie Lee SLEEPER CUTTER 04/05/2015 Office visit Michelle Glover SLEEPER CUTTER 03/10/2015 Office visit Feli Reid SLEEPER CUTTER 07/29/2014 Office visit Carole Reddy SLEEPER CUTTER 07/08/2014 Office visit 07/08/2014 Office visit Jamar Cornelius SLEEPER CUTTER 03/19/2014 Office visit Carole Reddy SLEEPER CUTTER 01/29/2014 Office visit Carole Reddy SLEEPER CUTTER 09/26/2013 Voided Jamar Cornelius SLEEPER CUTTER 09/26/2013 Office visit Jamar Cornelius SLEEPER CUTTER 09/24/2013 Office visit Jamar Cornelius SLEEPER CUTTER 06/08/2013 Office visit Kang Morgan SLEEPER CUTTER 06/08/2013 Voided Kang Morgan SLEEPER CUTTER 05/22/2013 Office visit Carole Reddy SLEEPER CUTTER 05/06/2013 Office visit Jamar Ashli SLEEPER CUTTER 04/09/2013 Office visit Carole Reddy SLEEPER CUTTER 03/04/2013 Office visit Carole Reddy SLEEPER CUTTER 10/17/2012 Office visit Sherry Domínguez MD 09/03/2012 Office visit Carole Reddy SLEEPER CUTTER 08/14/2012 Office visit Sherry Domínguez MD 07/17/2012 Office visit Carole Reddy SLEEPER CUTTER 07/02/2012 Office visit Sherry Domínguez MD 05/28/2012 Office visit Sherry Domínguez MD 04/23/2012 Office visit Trinity Torre MD 07/25/2011 Office visit Sanford Soto MD 03/19/2010 Office visit Trinity Torre MD 12/21/2009 Office visit Sherry Domínguez MD
--- OUTSIDE RECORDS SUMMARY | 2018-07-13 15:17 | XMS REPORT ---
Author Author Teodora Vazquez [facility] Address [address] [place], [place] [id number] Care Team Providers Care Home Inspector Name Role Phone Teodora Vazquez PCP Allergies [...] THYROID STIM HORMONE Reviewed 07/29/2014 12:00 AM RV REPAIRER Consult Reviewed 03/10/2015 12:00 AM CHLAMYDIA [...] Influenza 07/08/2014 sanofi pasteur PMC Fluzone Quadrivalent [id number] Intramuscular Left Deltoid 07/08/2014 04/15/2014 141 History [...] Policy Number Policy Group Number Start Date [facility] [id number] N/A [facility] [id number] Monday, 2009 [facility] [id number] N/A [facility] [id number] N/A History of Encounters Visit Date Visit Type Provider 12/28/[address] Teodora Vazquez MD 12/23/2017 [facility] Kang Staley MD 12/18/[address] Teodora Vazquez MD 11/23/[address] Teodora Vazquez MD 11/06/[address] Teodora Vazquez MD 10/17/2017 [facility] Kang Staley MD 10/12/[address] Teodora Vazquez MD 09/15/[address] Teodora Vazquez MD 09/04/[address] Teodora Vazquez MD 08/01/[address] Teodora Vazquez MD 05/24/2015 Office visit Lexie Lee CUSHION COVER INSPECTOR 04/05/2015 Office visit Michelle Glover CUSHION COVER INSPECTOR 03/10/2015 Office visit Feli Reid CUSHION COVER INSPECTOR 07/29/2014 Office visit Carole Reddy CUSHION COVER INSPECTOR 07/08/2014 Office visit 07/08/2014 Office visit Jamar Cornelius CUSHION COVER INSPECTOR 03/19/2014 Office visit Carole Reddy CUSHION COVER INSPECTOR 01/29/2014 Office visit Carole Reddy CUSHION COVER INSPECTOR 09/26/2013 Voided Jamar Cornelius CUSHION COVER INSPECTOR 09/26/2013 Office visit Jamar Cornelius CUSHION COVER INSPECTOR 09/24/2013 Office visit Jamar Cornelius CUSHION COVER INSPECTOR 06/08/2013 Office visit Kang Morgan CUSHION COVER INSPECTOR 06/08/2013 Voided Kang Morgan CUSHION COVER INSPECTOR 05/22/2013 Office visit Carole Reddy CUSHION COVER INSPECTOR 05/06/2013 Office visit Jamar Cornelius CUSHION COVER INSPECTOR 04/09/2013 Office visit Carole Reddy CUSHION COVER INSPECTOR 03/04/2013 Office visit Carole Reddy CUSHION COVER INSPECTOR 10/17/2012 Office visit Sherry Domínguez MD 09/03/2012 Office visit Carole Reddy CUSHION COVER INSPECTOR 08/14/2012 Office visit Sherry Domínguez MD 07/17/2012 Office visit Carole Reddy CUSHION COVER INSPECTOR 07/02/2012 Office visit Sherry Domínguez MD 05/28/2012 Office visit Sherry Domínguez MD 04/23/2012 Office visit Trinity Torre MD 07/25/2011 Office visit Sanford Soto MD 03/19/2010 Office visit Trinity Torre MD 12/21/2009 Office visit Sherry Domínguez MD
--- OUTSIDE RECORDS SUMMARY | 2018-07-13 15:21 | XMS REPORT ---
Author Author Teodora Vazquez [facility] Address [address] [place], [place] [address] Care Team Providers Care Websphere Commerce Consultant Name Role Phone Teodora Vazquez PCP [...] THYROID STIM HORMONE Reviewed 07/29/2014 12:00 AM STRAW HAT BRIM RAISER OPERATOR Consult Reviewed 03/10/2015 12:00 AM CHLAMYDIA [...] Influenza 07/08/2014 sanofi pasteur PMC Fluzone Quadrivalent [id number] Intramuscular Left Deltoid 07/08/2014 04/15/2014 141 History [...] Policy Number Policy Group Number Start Date [facility] [id number] N/A [facility] UMR [id number] Monday, [address] [facility] [id number] N/A [facility] [id number] N/A History of Encounters Visit Date Visit [...] Vazquez MD 05/24/2015 Office visit Lexie Lee PLATE WORKER HELPER 04/05/2015 Office visit Michelle Glover PLATE WORKER HELPER 03/10/2015 Office visit Feli Reid PLATE WORKER HELPER 07/29/2014 Office visit Carole Reddy PLATE WORKER HELPER 07/08/2014 Office visit 07/08/2014 Office visit Jamar Cornelius PLATE WORKER HELPER 03/19/2014 Office visit Carole Reddy PLATE WORKER HELPER 01/29/2014 Office visit Carole Reddy PLATE WORKER HELPER 09/26/2013 Voided Jamar Cornelius PLATE WORKER HELPER 09/26/2013 Office visit Jamar Cornelius PLATE WORKER HELPER 09/24/2013 Office visit Jamar Cornelius PLATE WORKER HELPER 06/08/2013 Office visit Kang Morgan PLATE WORKER HELPER 06/08/2013 Voided Kang Morgan PLATE WORKER HELPER 05/22/2013 Office visit Carole Reddy PLATE WORKER HELPER 05/06/2013 Office visit Jamar Cornelius PLATE WORKER HELPER 04/09/2013 Office visit Carole Reddy PLATE WORKER HELPER 03/04/2013 Office visit Carole Reddy PLATE WORKER HELPER 10/17/2012 Office visit Sherry Domínguez MD 09/03/2012 Office visit Carole Reddy PLATE WORKER HELPER 08/14/2012 Office visit Sherry Domínguez MD 07/17/2012 Office visit Carole Reddy PLATE WORKER HELPER 07/02/2012 Office visit Sherry Domínguez MD 05/28/2012 Office visit Sherry Domínguez MD 04/23/2012 Office visit Trinity Torre MD 07/25/2011 Office visit Sanford Soto MD 03/19/2010 Office visit Trinity Torre MD 12/21/2009 Office visit Sherry Domínguez MD
--- OUTSIDE RECORDS SUMMARY | 2018-07-13 15:23 | XMS REPORT ---
Author Author CARLOS NEGRETE [facility] Address [address] [place] [address] Care Team Providers Care Blow Molder Name Role Phone CARLOS NEGRETE Unavailable PROBLEMS Unknown Problems ALLERGIES No Known Allergies ENCOUNTERS Encounter Location Date Diagnosis [place] [id number] [address] May, Nasal congestion R09.81 ; Upper respiratory tract infection , unspecified type J06.9 ; Cough R05 and Fever, unspecified fever cause R50.9 [facility] [address] [address] May, Contact dermatitis due to plants, except food, unspecified contact dermatitis type L25.5 [place] [address] [place] [id number] [place] [address] December, Acute upper respiratory infection, unspecified J06.9 [place] [address] [place] [id number] [place] [address] Nov, [facility] [address] [place] [id number] [place] [address] Nov, Sore throat J02.9 and Acute upper respiratory infection, unspecified J06.9 [place] [address] [place] [id number] [place] [address] Apr, [place] [address] [address] Apr, Encounter for test, result unknown Z32.00 [place] [address] [place] [id number] [place] [address] Jan, test negative V72.41 [facility] [address] [facility] [id number] [place] [address] Feb, [facility] [address] [facility] [id number] [address] December, [facility] [address] [facility] [id number] [place] [address] May, IMMUNIZATIONS No Known Immunizations SOCIAL HISTORY Never Assessed REASON FOR VISIT cough, runny nose, headache, ;pw grade temp, bilateral earache. been sick for a week. [email or web address] PLAN OF CARE Activity Details Follow Up prn Reason: VITAL SIGNS Height 65 in 2018-06-19 Weight 185.6 lbs 2018-06-19 Temperature 97.2 degrees Fahrenheit 2018-06-19 Heart Rate 88 bpm 2018-06-19 Respiratory Rate 20 2018-06-19 BMI 30.88 kg/m2 2018-06-19 Blood pressure systolic 118 mmHg 2018-06-19 Blood pressure diastolic 68 mmHg 2018-06-19 MEDICATIONS Medication Instructions Dosage Frequency Start Date End Date Duration Status Zithromax Z-Rio 250 MG Orally Once a day as directed 24h May, May, 5 day(s) Active Hydrocortisone 2.5 % Externally Twice a day 1 application to affected area 12h May, 10 days Not-Taking Flonase 50 mcg/act Nasally twice a day 1 spray in each nostril 12h May, 7 days Active MethylPREDNISolone 4 MG Orally Once a day take each days dose at one time daily as directed 24h May, Active Ciprodex 0.3-0.1 % Otic Twice a day 4 drops into affected ear 12h May, 7 days Active PredniSONE 5 MG Orally Once a day 7 on day one, decrease by one tablet daily until gone 24h May, 7 days Not-Taking RESULTS No Results PROCEDURES No Known procedures INSTRUCTIONS MEDICATIONS ADMINISTERED No Known Medications MEDICAL (GENERAL) HISTORY Type Description Date Surgical History tonsillectomy and adenoidectomy Hospitalization History infection-[facility] Hospitalization History post vaginal delivery
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
--- NOTE | 2018-07-13 16:18 | ED GU-Female ---
General Chief Complaint: -Female Stated Complaint: BLEEDING; ABD PAIN Nursing Triage Note: PATIENT IS 6 MONTH POSTPARTEM AND COMPLAINING OF BLEEDING AND STABBING PAIN IN HER LOWER LEFT ABDOMEN.SHE STARTED HAVING CRAMPING 3 DAYS AGO. Nursing Sepsis Screen: No Definite Risk Source: patient Exam Limitations: no limitations History of Present Illness Date Seen by Provider: Jul 13, 2018 Time Seen by Provider: 16:16 Initial Comments To ER with reports of left lower quadrant abdominal cramping and bleeding. This began yesterday evening. She does have copper IUD Timing/Duration: constant Severity/Quality: moderate Location: other (left lower abdomen) Radiation: none Prior Genitourinary Problems: none Allergies and Home Medications Allergies Coded Allergies: No Known Drug Allergies (Unverified , 09/18/14) Home Medications Vit W-Ca,Fe,FA(<1 mg) 1 Each Tablet, 1 TAB PO DAILY, (Reported) Patient Home Medication List Home Medication List Reviewed: Yes Review of Systems Review of Systems Constitutional: see HPI EENTM: see HPI Respiratory: no symptoms reported Cardiovascular: no symptoms reported Genitourinary: see HPI Musculoskeletal: no symptoms reported Skin: no symptoms reported Psychiatric/Neurological: No Symptoms Reported Past Zwcuulr-Jjvwoa-Rwaiws Hx Patient Social History Type Used: Cigarettes Former Smoker, Quit: Feb 25, 2017 2nd Hand Smoke Exposure: No Recent Foreign Travel: No Contact w/Someone Who Travel: No Recent Infectious Disease Expo: No Immunizations Up To Date Tetanus Booster (TDap): Less than 5yrs Past Medical History Surgeries: Yes Adenoidectomy, Tonsillectomy Respiratory: No Cardiac: No Neurological: No Reproductive Disorders: No Female Reproductive Disorders: Denies Sexually Transmitted Disease: No Gastrointestinal: No Musculoskeletal: No Endocrine: Yes Hypothyroidsim Cancer: No Psychosocial: Yes Anxiety, Depression Integumentary: No Blood Disorders: No Adverse Reaction/Blood Tranf: No Family Medical History No Pertinent Family Hx Physical Exam Vital Signs Vital Signs - First Documented 07/13/18 16:00 Temp 97.2 Pulse 94 Resp 22 B/P (MAP) 122/83 (96) Pulse Ox 100 Capillary Refill : Less Than 3 Seconds Height, Weight, BMI Height: 5'4.00" Weight: 185lbs. 0oz. 83.168893by; 35.1 BMI Method:Stated General Appearance: WD/WN, no apparent distress HEENT: PERRL/EOMI, normal ENT inspection Respiratory: no respiratory distress, no accessory muscle use Gastrointestinal: normal bowel sounds, soft, tenderness (Left lower quadrant) Pelvic: normal external exam, other (exam done with Oyon RN at the bedside. There is cervical motion tenderness. The strings from the IUD are visualized. There is a mucopurulent discharge from the cervix.) Extremities: normal range of motion, non-tender Neurologic/Psychiatric: alert, normal mood/affect, oriented x 3 Skin: normal color, warm/dry Progress/Results/Core Measures Suspected Sepsis Recent Fever Within 48 Hours: No Infection Criteria Present: None New/Unexplained Altered Menta: No Sepsis Screen: No Definite Risk SIRS Temperature:97.2 Pulse: 94 Respiratory Rate: 22 Laboratory Tests 07/13/18 16:50: White Blood Count 10.5 Blood Pressure 122 /83 Mean: 96 Laboratory Tests 07/13/18 16:50: Creatinine 0.66, Platelet Count 303, Total Bilirubin 1.0 Results/Orders Lab Results Laboratory Tests Test 07/13/18 16:05 07/13/18 16:50 07/13/18 17:40 Range/Units Urine Color YELLOW Urine Clarity CLEAR Urine pH 7 5-9 Urine Specific [place] 1.010 L 1.016-1.022 Urine Protein 2+ H NEGATIVE Urine Glucose (UA) NEGATIVE NEGATIVE Urine Ketones NEGATIVE NEGATIVE Urine Nitrite NEGATIVE NEGATIVE Urine Bilirubin NEGATIVE NEGATIVE Urine Urobilinogen 4 H NORMAL MG/DL Urine Leukocyte Esterase 1+ H NEGATIVE Urine RBC (Auto) NEGATIVE NEGATIVE Urine RBC NONE /HPF Urine WBC 0-2 /HPF Urine Squamous Epithelial Cells 0-2 /HPF Urine Crystals NONE /LPF Urine Bacteria TRACE /HPF Urine Casts NONE /LPF Urine Mucus LARGE H /LPF Urine Culture Indicated NO White Blood Count 10.5 4.3-11.0 10^3/uL Red Blood Count 4.78 4.35-5.85 10^6/uL Hemoglobin 14.6 11.5-16.0 G/DL Hematocrit 42 35-52 % Mean Corpuscular Volume 88 80-99 FL Mean Corpuscular Hemoglobin 31 25-34 PG Mean Corpuscular Hemoglobin Concent 35 32-36 G/DL Red Cell Distribution Width 13.0 10.0-14.5 % Platelet Count 303 130-400 10^3/uL Mean Platelet Volume 9.9 7.4-10.4 FL Neutrophils (%) (Auto) 59 42-75 % Lymphocytes (%) (Auto) 31 12-44 % Monocytes (%) (Auto) 9 0-12 % Eosinophils (%) (Auto) 1 0-10 % Basophils (%) (Auto) 0 0-10 % Neutrophils # (Auto) 6.2 1.8-7.8 X 10^3 Lymphocytes # (Auto) 3.3 1.0-4.0 X 10^3 Monocytes # (Auto) 0.9 0.0-1.0 X 10^3 Eosinophils # (Auto) 0.1 0.0-0.3 10^3/uL Basophils # (Auto) 0.0 0.0-0.1 10^3/uL Sodium Level 139 135-145 MMOL/L Potassium Level 3.8 3.6-5.0 MMOL/L Chloride Level 107 98-107 MMOL/L Carbon Dioxide Level 25 21-32 MMOL/L Anion Gap 7 5-14 MMOL/L Blood Urea Nitrogen 7 7-18 MG/DL Creatinine 0.66 0.60-1.30 MG/DL Estimat Glomerular Filtration Rate > 60 BUN/Creatinine Ratio 11 Glucose Level 83 70-105 MG/DL Calcium Level 9.6 8.5-10.1 MG/DL Corrected Calcium 8.5-10.1 MG/DL Total Bilirubin 1.0 0.1-1.0 MG/DL Aspartate Amino Transf (AST/SGOT) 21 5-34 U/L Alanine Aminotransferase (ALT/SGPT) 25 0-55 U/L Alkaline Phosphatase 64 40-136 U/L Total Protein 7.6 6.4-8.2 GM/DL Albumin 4.8 H 3.2-4.5 GM/DL Human Chorionic Gonadotropin, Quant < 5 <5 MIU/ML My Orders Orders - KASSIE NAYAK APRN Us Non Ob Pelvis Comp/Transvag (07/13/18 16:00) Ua Culture If Indicated (07/13/18 16:00) Urine Bedside (07/13/18 16:00) Cbc With Automated Diff (07/13/18 16:03) Comprehensive Metabolic Panel (07/13/18 16:03) Hcg,Quantitative (07/13/18 16:03) Iv Heplock-Insert (Order) (07/13/18 16:03) Ketorolac Injection (Toradol Injection) (07/13/18 16:30) Wet Prep (07/13/18 17:17) Neisseria Gonorrhea Swab (07/13/18 17:17) Chlamydia Trachomatis Swab (07/13/18 17:17) Ceftriaxone For Iv Use (Rocephin For I (07/13/18 17:45) Azithromycin Tablet (Zithromax Tablet) (07/13/18 17:45) Genital Culture (07/13/18 17:51) Medications Given in ED Current Medications Medications Dose Ordered Sig/Dot Route Start Time Stop Time Status Last Admin Dose Admin Ceftriaxone Sodium 1000 mg/ Sodium Chloride 50 ml @ 100 mls/hr ONCE ONCE IV 07/13/18 17:45 07/13/18 18:14 DC 07/13/18 17:59 100 MLS/HR Ketorolac Tromethamine 15 mg ONCE ONCE IVP 07/13/18 16:30 07/13/18 16:31 DC 07/13/18 16:50 15 MG Vital Signs/I&O 07/13/18 16:00 Temp 97.2 Pulse 94 Resp 22 B/P (MAP) 122/83 (96) Pulse Ox 100 Capillary Refill : Less Than 3 Seconds Blood Pressure Mean: 96 Point of Care Testing Urine -Bedside: Negative Departure Impression Primary Impression: Cervicitis Disposition: 01 HOME, SELF-CARE Condition: Stable Departure-Patient Inst. Decision time for Depature: 17:46 Referrals: NO,LOCAL PHYSICIAN (PCP/Family) Primary Care Physician Patient Instructions: Pelvic Inflammatory Disease (DC) Add. Discharge Instructions: 1. Return to ER for any concerns 2. All discharge instructions reviewed with patient and/or family. Voiced understanding. Scripts Doxycycline Hyclate (Doxycycline Hyclate) 100 Mg Tablet 100 MG PO BID, #14 TAB Prov: KASSIE NAYAK SENIOR TECHNICAL EDITOR 07/13/18 KASSIE NAYAK SENIOR TECHNICAL EDITOR Jul 13, 2018 16:18
[2018-07-13 16:19] LABS: BILIRUBIN,URINE NEGATIVE (NEGATIVE); CLARITY,URINE CLEAR; COLOR,URINE YELLOW; GLUCOSE, URINE (UA) NEGATIVE (NEGATIVE); KETONES,URINE NEGATIVE (NEGATIVE); LEUKOCYTE ESTERASE ,URINE 1+ (NEGATIVE); NITRITE,URINE NEGATIVE (NEGATIVE); PH,URINE 7 (5-9); PROTEIN,URINE 2+ (NEGATIVE); UROBILINOGEN,URINE 4 MG/DL (NORMAL)
[2018-07-13] MEDS ORDERED: KETOROLAC 30 MG/ML VIAL IVP ONE (16:30)
[2018-07-13 16:32] LABS: BACTERIA,URINE TRACE /HPF; SQUAMOUS EPITHELIAL CELL,UR 0-2 /HPF; WBC,URINE 0-2 /HPF
[2018-07-13 17:06] LABS: BASOPHILS % (AUTO) 0 % (0-10); EOSINOPHILS # (AUTO) 0.1 10^3/uL (0.0-0.3); EOSINOPHILS % (AUTO) 1 % (0-10); HEMATOCRIT 42 % (35-52); HEMOGLOBIN 14.6 G/DL (11.5-16.0); LYMPHOCYTES # (AUTO) 3.3 X 10^3 (1.0-4.0); LYMPHOCYTES % (AUTO) 31 % (12-44); MEAN CORPUSCULAR HEMOGLOBIN 31 PG (25-34); MEAN CORPUSCULAR HGB CONC 35 G/DL (32-36); MEAN CORPUSCULAR VOLUME 88 FL (80-99); MEAN PLATELET VOLUME 9.9 FL (7.4-10.4); MONOCYTES # (AUTO) 0.9 X 10^3 (0.0-1.0); MONOCYTES % (AUTO) 9 % (0-12); NEUTROPHILS # (AUTO) 6.2 X 10^3 (1.8-7.8); NEUTROPHILS % (AUTO) 59 % (42-75); PLATELET COUNT 303 10^3/uL (130-400); RED BLOOD COUNT 4.78 10^6/uL (4.35-5.85); WHITE BLOOD COUNT 10.5 10^3/uL (4.3-11.0)
--- NOTE | 2018-07-13 17:08 | Diagnostic Imaging Report ---
Examination: Ultrasound pelvis. Date: July 13, 2018. Indication: 22-year-old female, vaginal bleeding and abdominal pain in the left lower quadrant. Comparison: February 26, 2015. November 11, 2017. Technique: A sonogram of the pelvis was performed utilizing transabdominal and endovaginal approaches assessing nair-scale appearance and color Doppler flow. Findings: The uterus measures 8.3 x 5.0 x 3.6 cm. No focal uterine masses are seen. The endometrium measures 1.1 cm in diameter. There is an intrauterine contraceptive device within the endometrial cavity. The right ovary measures 3.2 cm x 3.2 cm x 2.1 cm. The left ovary measures 2.9 cm x 2.6 cm x 2.3 cm. No adnexal lesion is seen. There is blood flow to both ovaries. No free pelvic fluid is demonstrated. Impression: 1. Intrauterine contraceptive device within the endometrial cavity. 2. Otherwise unremarkable sonographic appearance of the female pelvis. Dictated by: Dictated on workstation # [id number]
[2018-07-13 17:26] LABS: ALANINE AMINOTRANSFERASE 25 U/L (0-55); ALBUMIN 4.8 GM/DL (3.2-4.5); ALKALINE PHOSPHATASE 64 U/L (40-136); BUN/CREATININE RATIO 11; CALCIUM 9.6 MG/DL (8.5-10.1); CARBON DIOXIDE 25 MMOL/L (21-32); CHLORIDE 107 MMOL/L (98-107); CREATININE SERUM 0.66 MG/DL (0.60-1.30); GFR ESTIMATED > 60; GLUCOSE 83 MG/DL (70-105); POTASSIUM 3.8 MMOL/L (3.6-5.0); SODIUM 139 MMOL/L (135-145); TOTAL PROTEIN 7.6 GM/DL (6.4-8.2)
[2018-07-13] MEDS ORDERED: AZITHROMYCIN 250 MG TAB (ZITHROMAX) PO SCH (17:45)
[2018-07-13] MEDS ORDERED: cefTRIAXone FOR IV USE 1,000 MG in NS (IVPB) 50 ML IV ONE (17:45)
[2018-07-13] MEDS ORDERED: DOXY100T2 PO (18:21)
[2018-07-13 18:25] VITALS: BP 122/83
== END 2018-07-13 18:25 | disposition home or self-care (01) ==
LOC: EDUNIT# 14:51 → ER 14:53
DX: N72 Inflammatory disease of cervix uteri (principal); E03.9 Hypothyroidism, unspecified; F41.9 Anxiety disorder, unspecified; F32.9 Major depressive disorder, single episode, unspecified; Z90.89 Acquired absence of other organs; Z97.5 Presence of (intrauterine) contraceptive device; Z87.891 Personal history of nicotine dependence
CPT/HCPCS: 36415; 76830; 76856; 80053; 81000; 84702; 84703; 85025; 87070; 87205; 87210; 87491; 87591

== ENCOUNTER 2018-10-20 19:12 | Emergency (ER) | payer MEDICAID ==
[~2018-10-20] VITALS: Ht 162.6 cm; Wt 83.9 kg
[~2018-10-20 19:12] MED LIST changes: +DOXY100T2 PO
[2018-10-20 19:57] LABS: BILIRUBIN,URINE NEGATIVE (NEGATIVE); CLARITY,URINE SLIGHTLY CLOUDY; COLOR,URINE YELLOW; GLUCOSE, URINE (UA) NEGATIVE (NEGATIVE); KETONES,URINE 4+ (NEGATIVE); LEUKOCYTE ESTERASE ,URINE 1+ (NEGATIVE); NITRITE,URINE NEGATIVE (NEGATIVE); PH,URINE 5 (5-9); PROTEIN,URINE 1+ (NEGATIVE); UROBILINOGEN,URINE 1 MG/DL (NORMAL)
[2018-10-20 20:10] LABS: BACTERIA,URINE TRACE /HPF
--- NOTE | 2018-10-20 20:57 | ED GU-Female ---
General Chief Complaint: -Female Stated Complaint: POSS 2 MONTH PREG, BLEEDING,CLOTTING Nursing Triage Note: C/O PELVIC PAIN SIMILAR TO CONTRACTIONS, CRAMPING, AND BACK CRAMPING. STATES SHE THINKS SHES POSSIBLY 2 MONTHS . Nursing Sepsis Screen: No Definite Risk Source: patient Exam Limitations: no limitations History of Present Illness Date Seen by Provider: Oct 20, 2018 Time Seen by Provider: 20:58 Initial Comments 22-year-old female patient presents to the emergency department with complaints of lower abdominal cramping radiating into the back. Patient reports the cramps "feel like contractions". Patient reportedly had an IUD placed approximately 9 months ago. States she was having monthly periods until July. Denies having a period in August or September. She did take a test approximately one month ago which was negative, but is concerned she could be 2 months . Has noted vaginal bleeding beginning yesterday which is worse then her usual periods. Timing/Duration: yesterday Severity/Quality: cramping Location: suprapubic Radiation: back Activities at Onset: none Prior Genitourinary Problems: none Sexual [place] History: less than 2 months ago, single partner Allergies and Home Medications Allergies Coded Allergies: No Known Drug Allergies (Unverified , 09/18/14) Home Medications Doxycycline Hyclate 100 Mg Tablet, 100 MG PO BID Prescribed by: KASSIE NAYAK on 07/13/181820 Ondansetron 8 Mg Tab.rapdis, 8 MG PO Q6H PRN for NAUSEA/VOMITING Prescribed by: HIPOLITO ALBARADO on 10/20/182116 Vit W-Ca,Fe,FA(<1 mg) 1 Each Tablet, 1 TAB PO DAILY, (Reported) Patient Home Medication List Home Medication List Reviewed: Yes Review of Systems Review of Systems Constitutional: No chills, No fever, No malaise EENTM: no symptoms reported Respiratory: no symptoms reported Cardiovascular: no symptoms reported Gastrointestinal: see HPI; No constipation, No diarrhea; nausea; No vomiting Genitourinary: see HPI; denies dysuria, denies frequency; pain Musculoskeletal: see HPI Skin: no symptoms reported Psychiatric/Neurological: No Symptoms Reported All Other Systemes Reviewed Negative Unless Noted: Yes (Negative excepted noted.) Past Sfuykoi-Zsnuse-Asevjw Hx Past Med/Social Hx: Reviewed Nursing Past Med/Soc Hx Patient Social History Alcohol Use: Rarely Uses Recreational Drug Use: No Smoking Status: Former Smoker Type Used: Cigarettes Former Smoker, Quit: Feb 25, 2017 2nd Hand Smoke Exposure: No Recent Foreign Travel: No Contact w/Someone Who Travel: No Recent Infectious Disease Expo: No Recent Hopitalizations: No Immunizations Up To Date Tetanus Booster (TDap): Less than 5yrs Seasonal Allergies Seasonal Allergies: No Past Medical History Surgeries: Yes Adenoidectomy, Tonsillectomy Respiratory: No Cardiac: No Neurological: No Last Menstrual Period: Aug 15, 2018 Reproductive Disorders: No Female Reproductive Disorders: Denies Sexually Transmitted Disease: No Gastrointestinal: No Musculoskeletal: No Endocrine: Yes Hypothyroidsim Cancer: No Psychosocial: Yes Anxiety, Depression Integumentary: No Blood Disorders: No Adverse Reaction/Blood Tranf: No Family Medical History Reviewed Nursing Family Hx No Pertinent Family Hx Physical Exam Vital Signs Vital Signs - First Documented 10/20/18 10/20/18 19:45 21:19 Temp 99.0 Pulse 76 Resp 19 B/P (MAP) 112/77 (89) Pulse Ox 100 O2 Delivery Room Air Capillary Refill : Less Than 3 Seconds Height, Weight, BMI Height: 5'4.00" Weight: 185lbs. 0oz. 83.324756ww; 35.1 BMI Method:Stated General Appearance: WD/WN, no apparent distress Neck: supple, normal inspection Cardiovascular: normal peripheral pulses, regular rate, rhythm, no edema, no murmur Respiratory: lungs clear, normal breath sounds, no respiratory distress, no accessory muscle use Gastrointestinal: normal bowel sounds, soft, no organomegaly; No distended, No guarding, No rebound; tenderness (mild suprapubic tenderness); No mass Back: normal inspection, no CVA tenderness Extremities: no pedal edema, normal capillary refill Neurologic/Psychiatric: alert, normal mood/affect, oriented x 3 Skin: normal color, warm/dry Progress/Results/Core Measures Suspected Sepsis Recent Fever Within 48 Hours: No Infection Criteria Present: Suspected New Infection New/Unexplained Altered Menta: No Sepsis Screen: No Definite Risk SIRS Temperature:99.0 Pulse: 76 Respiratory Rate: 19 Blood Pressure 112 /77 Mean: 89 Results/Orders Lab Results Laboratory Tests Test 10/20/18 19:45 Range/Units Urine Color YELLOW Urine Clarity SLIGHTLY CLOUDY Urine pH 5 5-9 Urine Specific [place] 1.025 H 1.016-1.022 Urine Protein 1+ H NEGATIVE Urine Glucose (UA) NEGATIVE NEGATIVE Urine Ketones 4+ H NEGATIVE Urine Nitrite NEGATIVE NEGATIVE Urine Bilirubin NEGATIVE NEGATIVE Urine Urobilinogen 1 NORMAL MG/DL Urine Leukocyte Esterase 1+ H NEGATIVE Urine RBC (Auto) NEGATIVE NEGATIVE Urine RBC NONE /HPF Urine WBC 2-5 /HPF Urine Squamous Epithelial Cells 2-5 /HPF Urine Crystals NONE /LPF Urine Bacteria TRACE /HPF Urine Casts NONE /LPF Urine Mucus LARGE H /LPF Urine Culture Indicated NO Vital Signs/I&O 10/20/18 10/20/18 19:45 21:19 Temp 99.0 99.0 Pulse 76 75 Resp 19 19 B/P (MAP) 112/77 (89) 110/79 (89) Pulse Ox 100 O2 Delivery Room Air Capillary Refill : Less Than 3 Seconds Blood Pressure Mean: 89 Departure Communication (Admissions) Laboratory findings discussed with the patient. I discussed with the patient that we do not have ultrasound available in the emergency department at this time. Patient verbalizes understanding and states "the pain is not that bad" at this time and would like to follow-up with her chainer as an outpatient. Plan for discharge home with follow-up as an outpatient with her chainer or primary care provider for possible need of an outpatient ultrasound. Patient to return immediately to the emergency department for worsened symptoms or any other concerns. Impression Primary Impression: Menorrhagia Qualified Codes: N92.1 - Excessive and frequent menstruation with irregular cycle Additional Impression: Negative test Disposition: HOME, SELF-CARE Condition: Improved Departure-Patient Inst. Decision time for Depature: 21:11 Referrals: NO,LOCAL PHYSICIAN (PCP/Family) Primary Care Physician Patient Instructions: Heavy Periods (DC), Menstrual Cramps (DC) Add. Discharge Instructions: All discharge instructions reviewed with patient and/or family. Voiced understanding. Tylenol Extra Strength [id number] as directed for pain. Ibuprofen 800 mg by mouth every 8 hours as needed for pain. Follow-up with your chainer for recheck and possible need for an outpatient ultrasound. Call Monday morning for appointment time. Return to the emergency department for worsened symptoms or any other concerns. Scripts Ondansetron (Ondansetron Odt) 8 Mg Tab.rapdis 8 MG PO Q6H PRN for NAUSEA/VOMITING, #10 TAB 0 Refills Prov: HIPOLITO ALBARADO 10/20/18 HIPOLITO ALBARADO Oct 20, 2018 20:57
[2018-10-20] MEDS ORDERED: ONDA8TAB13 PO (21:17)
[2018-10-20 21:19] VITALS: BP 110/79
== END 2018-10-20 21:20 | disposition home or self-care (01) ==
LOC: EDUNIT# 19:12 → ER 19:14
DX: N92.0 Excessive and frequent menstruation with regular cycle (principal); E03.9 Hypothyroidism, unspecified; F41.9 Anxiety disorder, unspecified; F32.9 Major depressive disorder, single episode, unspecified; Z97.5 Presence of (intrauterine) contraceptive device; Z32.02 Encounter for pregnancy test, result negative; Z87.891 Personal history of nicotine dependence; Z90.89 Acquired absence of other organs
CPT/HCPCS: 81000; 84703; 99282

== ENCOUNTER 2019-05-05 17:54 | Emergency (ER) | payer MEDICAID ==
[~2019-05-05] VITALS: Ht 163.8 cm; Wt 71.2 kg
[~2019-05-05 17:54] MED LIST changes: +ONDA8TAB13 PO
[2019-05-05] MEDS ORDERED: ACETAMINOPHEN 500 MG TAB (TYLENOL) PO PRN (18:15)
[2019-05-05 18:28] LABS: BASOPHILS % (AUTO) 0 % (0-10); EOSINOPHILS % (AUTO) 0 % (0-10); HEMATOCRIT 38 % (35-52); LYMPHOCYTES # (AUTO) 1.6 X 10^3 (1.0-4.0); LYMPHOCYTES % (AUTO) 12 % (12-44); MEAN CORPUSCULAR HEMOGLOBIN 31 PG (25-34); MEAN CORPUSCULAR HGB CONC 34 G/DL (32-36); MEAN CORPUSCULAR VOLUME 93 FL (80-99); MEAN PLATELET VOLUME 9.4 FL (7.4-10.4); MONOCYTES % (AUTO) 8 % (0-12); NEUTROPHILS # (AUTO) 10.1 X 10^3 (1.8-7.8); NEUTROPHILS % (AUTO) 80 % (42-75); PLATELET COUNT 237 10^3/uL (130-400); WHITE BLOOD COUNT 12.7 10^3/uL (4.3-11.0)
[2019-05-05] MEDS: NS IV 1000 ML 1,000 ML IV SCH ×2 (18:28→19:16)
[2019-05-05 18:29] LABS: BILIRUBIN,URINE NEGATIVE (NEGATIVE); CLARITY,URINE SLIGHTLY CLOUDY; COLOR,URINE YELLOW; GLUCOSE, URINE (UA) NEGATIVE (NEGATIVE); KETONES,URINE 1+ (NEGATIVE); LEUKOCYTE ESTERASE ,URINE 3+ (NEGATIVE); NITRITE,URINE NEGATIVE (NEGATIVE); PH,URINE 6 (5-9); PROTEIN,URINE 2+ (NEGATIVE); UROBILINOGEN,URINE 1 MG/DL (NORMAL)
[2019-05-05 18:40] LABS: BACTERIA,URINE MODERATE /HPF; WBC,URINE TNTC /HPF
[2019-05-05 18:41] LABS: INR 1.1 (0.8-1.4); PROTHROMBIN TIME PATIENT 14.2 SEC (12.2-14.7)
--- NOTE | 2019-05-05 18:41 | ED General ---
General Stated Complaint: BACK PAIN / HEADACHE / FEVER Source of Information: Patient Exam Limitations: No Limitations (LUIS CARLOS HARRISON MED STUDENT) History of Present Illness Date Seen by Provider: May 05, 2019 Time Seen by Provider: 18:20 Initial Comments The patient is a WD/WN 23 y/o female who presents with a chief complaint of headache and fever. She reports that her symptoms began two days ago with mild right midthoracic back pain. This morning she began to experience headache in the frontal area that increases in severity with bending over. She reports that this evening she began to have pain and stiffness down the posterior musculature of her neck and temperature of 100 degrees at 4 pm. She complains of fatigue and loss of appetite for 2 days, and nausea that started today. She is also experiencing a dry cough and blurry vision that started this evening. She admits to frequent UTIs and states that her most recent was two weeks ago. She denies any current symptoms with bowel or bladder. Timing/Duration: 1-2 Days Severity: Mild Associated Systoms: No Chest Pain; Cough, Fever/Chills, Headaches, Loss of Appetite, Malaise, Nausea/Vomiting (LUIS CARLOS HARRISON MED STUDENT) Timing/Duration: 1-2 Days Severity: Moderate Associated Systoms: Cough, Fever/Chills, Headaches, Nausea/Vomiting; No Shortness of Air (LUIS MIGUEL BLISS MD) Allergies and Home Medications Allergies Coded Allergies: No Known Drug Allergies (Unverified , 09/18/14) Home Medications Doxycycline Hyclate 100 Mg Tablet, 100 MG PO BID Prescribed by: KASSIE NAYAK on 07/13/181820 Ondansetron 8 Mg Tab.rapdis, 8 MG PO Q6H PRN for NAUSEA/VOMITING Prescribed by: HIPOLITO ALBARADO on 10/20/182116 Vit W-Ca,Fe,FA(<1 mg) 1 Each Tablet, 1 TAB PO DAILY, (Reported) Patient Home Medication List Home Medication List Reviewed: Yes (LUIS MIGUEL BLISS MD) Review of Systems Review of Systems Constitutional: fever, malaise EENTM: blurred vision; No double vision Respiratory: cough; No short of breath Cardiovascular: No chest pain, No palpitations Gastrointestinal: loss of appetite, nausea; No vomiting Genitourinary: No dysuria, No frequency Musculoskeletal: back pain, neck pain (LUIS CARLOS HARRISON) Constitutional: see HPI, chills, fever EENTM: blurred vision; No nose congestion Respiratory: cough Cardiovascular: no symptoms reported Gastrointestinal: nausea; No vomiting Genitourinary: see HPI; No discharge, No hematuria : No Musculoskeletal: back pain, muscle pain, neck pain Skin: no symptoms reported Psychiatric/Neurological: Denies See HPI; Headache (LUIS MIGUEL BLISS MD) All Other Systems Reviewed Negative Unless Noted: Yes (LUIS MIGUEL BLISS MD) Past Trgfqdu-Niwguu-Oqiely Hx Past Med/Social Hx: Reviewed Nursing Past Med/Soc Hx (LUIS MIGUEL BLISS MD) Patient Social History Type Used: Cigarettes Former Smoker, Quit: Feb 25, 2017 2nd Hand Smoke Exposure: No Recent Foreign Travel: No Contact w/Someone Who Travel: No Recent Hopitalizations: No (LUIS CARLOS HARRISON) Immunizations Up To Date Tetanus Booster (TDap): Less than 5yrs (LUIS CARLOS HARRISON) Seasonal Allergies Seasonal Allergies: No (LUIS CARLOS HARRISON) Past Medical History Surgeries: Yes Adenoidectomy, Tonsillectomy Respiratory: No Cardiac: No Neurological: No Reproductive Disorders: No Female Reproductive Disorders: Denies Sexually Transmitted Disease: No Gastrointestinal: No Musculoskeletal: No Endocrine: Yes Hypothyroidsim Cancer: No Psychosocial: Yes Anxiety, Depression Integumentary: No Blood Disorders: No Adverse Reaction/Blood Tranf: No (LUIS CARLOS HARRISON) Family Medical History Reviewed Nursing Family Hx (LUIS MIGUEL BLISS MD) No Pertinent Family Hx (LUIS CARLOS HARRISON) Physical Exam-Suspected Sepsis Physical Exam Vital Signs Vital Signs - First Documented 05/05/19 17:56 Temp 103.6 Pulse 134 Resp 18 B/P (MAP) 128/81 (97) Pulse Ox 100 O2 Delivery Room Air (LUIS MIGUEL BLISS MD) Vital Signs Capillary Refill : (LUIS CARLOS HARRISON STUDENT) Height, Weight, BMI Height: 5'4.00" Weight: 185lbs. 0oz. 83.211078er; 35.1 BMI Method:Stated General Appearance: No Apparent Distress, WD/WN Eyes: Bilateral Eye PERRL, Bilateral Eye EOMI, Bilateral Eye Photophobia HEENT: PERRL/EOMI, Moist Mucous Membranes Neck: Full Range of Motion, Tender Lateral Respiratory: Chest Non Tender, Lungs Clear, Normal Breath Sounds, No Respiratory Distress Cardiovascular: No Edema, No Murmur, Tachycardia Gastrointestinal: Normal Bowel Sounds, Non Tender, Soft Back: No CVA Tenderness (L); CVA Tenderness (R) Extremity: Normal Capillary Refill, Normal Inspection Neurologic/Psychiatric: Alert, Oriented x3 Skin: normal color, warm/dry (LUIS CARLOS HARRISON STUDENT) General Appearance: No Apparent Distress, WD/WN HEENT: PERRL/EOMI, TMs Normal, Pharynx Normal Neck: Full Range of Motion, Supple; No Lymphadenopathy (L), No Lymphadenopathy (R); Tender Lateral Respiratory: Lungs Clear, Normal Breath Sounds Cardiovascular: No Murmur, Tachycardia Gastrointestinal: Non Tender, Soft Back: No CVA Tenderness (L); CVA Tenderness (R); No Muscle Spasm, No Vertebral Tenderness Extremity: Normal Capillary Refill, Normal Inspection Neurologic/Psychiatric: Alert, Oriented x3 Skin: normal color, warm/dry (LUIS MIGUEL BLISS MD) Focused Exam Lactate Level 05/05/19 18:10: Lactic Acid Level 0.71 (LUIS MIGUEL BLISS MD) Lactic Acid Level (LUIS MIGUEL BLISS MD) Progress/Results/Core Measures Suspected Sepsis SIRS Temperature:103.6 Pulse: Respiratory Rate: Laboratory Tests 05/05/19 18:10: Blood Pressure / Mean: 05/05/19 18:10: Laboratory Tests 05/05/19 18:10: (LUIS CARLOS HARRISON STUDENT) Results/Orders Lab Results Laboratory Tests Test 05/05/19 18:00 05/05/19 18:10 Range/Units Urine Color YELLOW Urine Clarity SLIGHTLY CLOUDY Urine pH 6 5-9 Urine Specific [place] 1.010 L 1.016-1.022 Urine Protein 2+ H NEGATIVE Urine Glucose (UA) NEGATIVE NEGATIVE Urine Ketones 1+ H NEGATIVE Urine Nitrite NEGATIVE NEGATIVE Urine Bilirubin NEGATIVE NEGATIVE Urine Urobilinogen 1 NORMAL MG/DL Urine Leukocyte Esterase 3+ H NEGATIVE Urine RBC (Auto) 4+ H NEGATIVE Urine RBC 5-10 H /HPF Urine WBC TNTC H /HPF Urine Squamous Epithelial Cells 5-10 /HPF Urine Crystals NONE /LPF Urine Bacteria MODERATE H /HPF Urine Casts NONE /LPF Urine Mucus NEGATIVE /LPF Urine Culture Indicated CULTURE PENDING White Blood Count 12.7 H 4.3-11.0 10^3/uL Red Blood Count 4.14 L 4.35-5.85 10^6/uL Hemoglobin 13.0 11.5-16.0 G/DL Hematocrit 38 35-52 % Mean Corpuscular Volume 93 80-99 FL Mean Corpuscular Hemoglobin 31 25-34 PG Mean Corpuscular Hemoglobin Concent 34 32-36 G/DL Red Cell Distribution Width 12.0 10.0-14.5 % Platelet Count 237 130-400 10^3/uL Mean Platelet Volume 9.4 7.4-10.4 FL Neutrophils (%) (Auto) 80 H 42-75 % Lymphocytes (%) (Auto) 12 12-44 % Monocytes (%) (Auto) 8 0-12 % Eosinophils (%) (Auto) 0 0-10 % Basophils (%) (Auto) 0 0-10 % Neutrophils # (Auto) 10.1 H 1.8-7.8 X 10^3 Lymphocytes # (Auto) 1.6 1.0-4.0 X 10^3 Monocytes # (Auto) 1.0 0.0-1.0 X 10^3 Eosinophils # (Auto) 0.0 0.0-0.3 10^3/uL Basophils # (Auto) 0.0 0.0-0.1 10^3/uL Prothrombin Time 14.2 12.2-14.7 SEC INR Comment 1.1 0.8-1.4 Activated Partial Thromboplast Time 28 24-35 SEC Sodium Level 138 135-145 MMOL/L Potassium Level 3.1 L 3.6-5.0 MMOL/L Chloride Level 104 98-107 MMOL/L Carbon Dioxide Level 23 21-32 MMOL/L Anion Gap 11 5-14 MMOL/L Blood Urea Nitrogen 9 7-18 MG/DL Creatinine 0.71 0.60-1.30 MG/DL Estimat Glomerular Filtration Rate > 60 BUN/Creatinine Ratio 13 Glucose Level 92 70-105 MG/DL Lactic Acid Level 0.71 0.50-2.00 MMOL/L Calcium Level 9.0 8.5-10.1 MG/DL Corrected Calcium 8.8 8.5-10.1 MG/DL Total Bilirubin 1.0 0.1-1.0 MG/DL Aspartate Amino Transf (AST/SGOT) 15 5-34 U/L Alanine Aminotransferase (ALT/SGPT) 14 0-55 U/L Alkaline Phosphatase 61 40-136 U/L Total Protein 7.5 6.4-8.2 GM/DL Albumin 4.3 3.2-4.5 GM/DL (LUIS MIGUEL BLISS MD) Micro Results Microbiology 05/05/19 Influenza Types A,B Antigen (LIV) - Final, Complete (LUIS MIGUEL BLISS MD) My Orders Orders - LUIS MIGUEL BLISS MD Ed Iv/Invasive Line Start (05/05/19 18:12) Ns Iv 1000 Ml (Sodium Chloride 0.9%) (05/05/19 18:12) Cbc With Automated Diff (05/05/19 18:12) Comprehensive Metabolic Panel (05/05/19 18:12) Blood Culture (05/05/19 18:12) Sputum Culture (05/05/19 18:12) Urinalysis (05/05/19 18:12) Urine Culture (05/05/19 18:12) Protime With Inr (05/05/19 18:12) Partial Thromboplastin Time (05/05/19 18:12) Chest 1 View, Ap/Pa Only (05/05/19 18:12) Acetaminophen Tablet (Tylenol Tablet) (05/05/19 18:15) Ed Iv/Invasive Line Start (05/05/19 18:12) Vital Signs Adult Sepsis Patie Q15M (05/05/19 18:12) O2 (05/05/19 18:12) Remove Rings In Anticipation O (05/05/19 18:12) Lactic Acid Analyzer (05/05/19 18:12) Influenza A And B Antigens (05/05/19 18:12) Urine Bedside (05/05/19 18:28) Ketorolac Injection (Toradol Injection) (05/05/19 18:50) Ct Abdomen/Pelvis W (05/05/19 18:58) Ceftriaxone For Iv Use (Rocephin For I (05/05/19 20:15) (LUIS MIGUEL BLISS MD) Medications Given in ED Current Medications Medications Dose Ordered Sig/Dot Route Start Time Stop Time Status Last Admin Dose Admin Acetaminophen 1,000 mg ONCE PRN PO 05/05/19 18:15 05/05/19 18:29 DC 05/05/19 18:28 1,000 MG Ceftriaxone Sodium 1000 mg/ Sterile Water 10 ml @ 200 mls/hr ONCE ONCE IV 05/05/19 20:15 05/05/19 20:17 DC 05/05/19 20:17 200 MLS/HR (LUIS MIGUEL BLISS MD) Vital Signs/I&O 05/05/19 05/05/19 17:56 18:28 Temp 103.6 103.6 Pulse 134 Resp 18 B/P (MAP) 128/81 (97) Pulse Ox 100 O2 Delivery Room Air (LUIS MIGUEL BLISS MD) Vital Signs/I&O Capillary Refill : (LUIS CARLOS HARRISON MED STUDENT) Progress Note : Time: 18:45 Progress Note The patient is resting comfortably in the exam room. Initial treatment with 1L normal saline for rehydration, toradol and acetominophen for pain. Lab analysis with CBC, CMP, and UA to evaluate for suspected UTI/pyelonephritis. (LUIS CARLOS HARRISON MED STUDENT) Progress Note : Progress Note Have seen and evaluated the patient and agree with above except as indicated. Have directed the plan of care. Patient is here with. It's been increasing this afternoon as well as not feeling well and backaches that has moved up to her neck and a headache today. Reports that she's been drinking okay she believes. She has frequent urinary tract infections that are usually able to be cared for with just increasing fluids and using cranberry juice. Last one was about 2 weeks ago. Over the last week she is noted right-sided back pain that is worsened especially in the area of the right CVA. Does have a mild cough. On physical exam she is able to range her neck. Lungs are clear to auscultation leann aterally. Otherwise as above. IV, labs, UA, blood cultures , influenza screen and 2 L normal saline ordered. Tylenol 1 g by mouth and Toradol 30 mg IV ordered. She was doing a little better on my exam. Monitor patient. We will get CT abdomen and pelvis with contrast to rule out significant pyelonephritis given her CVA tenderness. 2014: Rocoli [address] does show some pyelonephritis on the right. Patient is overall feeling better. We will continue to monitor and determine need for admission versus inability to manage this outpatient. Monitor patient. 2048: Overall feeling better. CT results reviewed with the patient. We will monitor her for another hour. If she stays okay then she thinks that she couldn't tolerate this at home. We would continue antibiotics obviously at that point. We will see how she is doing then and make final decision for disposition. 2211: Overall still feeling better and states she is actually hungry. She feels comfortable going home with the understanding to return for any worsening. Discharged home with return precautions. Patient verbalized understanding instructions and agreement with plan. (LUIS MIGUEL BLISS MD) Diagnostic Imaging Diagonstic Imaging: Xray Plain Films/CT/US/NM/MRI: chest Comments NAME: JESSEE GRAY [facility] REC#: [id number] PT STATUS: REG ER : 1995 PHYSICIAN: LUIS MIGUEL BLISS MD ADMIT DATE: 05/05/19/ER Signed Date of Exam: 05/05/19 CHEST 1 VIEW, AP/PA ONLY INDICATION: Right-sided back pain with cough and fever. FINDINGS: Lungs appear clear without focal infiltrate or consolidation. There is no effusion. There is no pneumothorax. Heart size and mediastinal contours appear appropriate. Pulmonary vascularity appears normal. There is no acute or suspicious osseous abnormality demonstrated. IMPRESSION: 1. No radiographic evidence of an acute cardiopulmonary process. Dictated by: Dictated on workstation # [id number] Dict: 05/05/191907 Trans: 05/05/191957 Interpreted by: SARATH SANZ MD Electronically signed by: SARATH SANZ MD 05/05/191957 Diagonstic Imaging: CT Plain Films/CT/US/NM/MRI: abdomen, pelvis Comments NAME: JESSEE GRAY [facility] REC#: [id number] PT STATUS: REG ER : 1995 PHYSICIAN: LUIS MIGUEL BLISS MD ADMIT DATE: 05/05/19/ER Signed Date of Exam: 05/05/19 CT ABDOMEN/PELVIS W PROCEDURE: CT abdomen and pelvis with contrast. TECHNIQUE: Multiple contiguous axial images were obtained through the abdomen and pelvis after administration of intravenous contrast. Auto Exposure Controls were utilized during the CT exam to meet ALARA standards for radiation dose reduction. INDICATION: Right-sided flank pain. Fever. Nausea and vomiting. FINDINGS: The lung bases appear clear. There is no effusion. Liver demonstrates no evidence of a focal intrahepatic abnormality. The portal veins are patent. The gallbladder is nondistended without radiodense gallstones or biliary dilatation. Pancreas is unremarkable without adjacent fluid or stranding. The spleen appears normal. There is no adrenal mass. There is a patchy region of hypoattenuation demonstrated within the right kidney with ill-defined lack of enhancement suggestive of pyelonephritis. There is no hydronephrosis. Small and large bowel are normal in caliber without evidence of obstruction. There is no abnormal bowel thickening. There is no appendicitis. There are no findings of free air, free fluid or abscess. Urinary bladder, uterus and adnexa unremarkable. An intrauterine device is in place. The aorta is normal in caliber. There is no acute or suspicious osseous abnormality. IMPRESSION: 1. Patchy regions of abnormal lack of enhancement within the right kidney suggests right-sided pyelonephritis. There is no hydronephrosis. 2. CT of the abdomen and pelvis otherwise appears unremarkable. Dictated by: Dictated on workstation # [id number] Dict: 05/05/191940 Trans: 05/05/191957 Interpreted by: SARATH SANZ MD Electronically signed by: SARATH SANZ MD 05/05/191957 (LUIS MIGUEL BLISS MD) Departure Impression Primary Impression: Pyelonephritis Additional Impression: Urinary tract infection Qualified Codes: N30.00 - Acute cystitis without hematuria Disposition: HOME, SELF-CARE Condition: Stable Departure-Patient Inst. Decision time for Depature: 22:12 (LUIS MIGUEL BLISS MD) Referrals: NO,LOCAL PHYSICIAN (PCP/Family) Primary Care Physician Patient Instructions: Kidney Infection (DC), Urinary Tract Infection, Adult (DC) Add. Discharge Instructions: Take medications as directed. Follow-up with your DrMack in a few days for recheck. Return for worse pain, fever, vomiting, weakness, breathing problems, uncontrolled fever or other concerns as needed. You may take Tylenol/acetaminophen 1000 mg every 6 hours as needed for fever or pain. You may take ibuprofen 600 mg every 8 hours as needed for fever or pain. Drink plenty of fluids. Eat a light diet. Scripts Cephalexin (Cephalexin) 500 Mg Tablet 500 MG PO TID, #21 TAB 0 Refills Prov: LUIS MIGUEL BLISS MD 05/05/19 LUIS CARLOS HARRISON MED STUDENT May 05, 2019 18:41 LUIS MIGUEL BLISS MD May 05, 2019 19:37
[2019-05-05 18:49] LABS: ALANINE AMINOTRANSFERASE 14 U/L (0-55); ALBUMIN 4.3 GM/DL (3.2-4.5); ALKALINE PHOSPHATASE 61 U/L (40-136); BUN/CREATININE RATIO 13; CARBON DIOXIDE 23 MMOL/L (21-32); CHLORIDE 104 MMOL/L (98-107); CREATININE SERUM 0.71 MG/DL (0.60-1.30); GFR ESTIMATED > 60; GLUCOSE 92 MG/DL (70-105); POTASSIUM 3.1 MMOL/L (3.6-5.0); SODIUM 138 MMOL/L (135-145); TOTAL PROTEIN 7.5 GM/DL (6.4-8.2)
[2019-05-05] MEDS ORDERED: KETOROLAC 30 MG/ML VIAL IVP STA (18:50)
--- NOTE | 2019-05-05 19:12 | Diagnostic Imaging Report ---
INDICATION: Right-sided back pain with cough and fever. FINDINGS: Lungs appear clear without focal infiltrate or consolidation. There is no effusion. There is no pneumothorax. Heart size and mediastinal contours appear appropriate. Pulmonary vascularity appears normal. There is no acute or suspicious osseous abnormality demonstrated. IMPRESSION: 1. No radiographic evidence of an acute cardiopulmonary process. Dictated by: Dictated on workstation # [id number]
--- NOTE | 2019-05-05 19:51 | Diagnostic Imaging Report ---
PROCEDURE: CT abdomen and pelvis with contrast. TECHNIQUE: Multiple contiguous axial images were obtained through the abdomen and pelvis after administration of intravenous contrast. Auto Exposure Controls were utilized during the CT exam to meet ALARA standards for radiation dose reduction. INDICATION: Right-sided flank pain. Fever. Nausea and vomiting. FINDINGS: The lung bases appear clear. There is no effusion. Liver demonstrates no evidence of a focal intrahepatic abnormality. The portal veins are patent. The gallbladder is nondistended without radiodense gallstones or biliary dilatation. Pancreas is unremarkable without adjacent fluid or stranding. The spleen appears normal. There is no adrenal mass. There is a patchy region of hypoattenuation demonstrated within the right kidney with ill-defined lack of enhancement suggestive of pyelonephritis. There is no hydronephrosis. Small and large bowel are normal in caliber without evidence of obstruction. There is no abnormal bowel thickening. There is no appendicitis. There are no findings of free air, free fluid or abscess. Urinary bladder, uterus and adnexa unremarkable. An intrauterine device is in place. The aorta is normal in caliber. There is no acute or suspicious osseous abnormality. IMPRESSION: 1. Patchy regions of abnormal lack of enhancement within the right kidney suggests right-sided pyelonephritis. There is no hydronephrosis. 2. CT of the abdomen and pelvis otherwise appears unremarkable. Dictated by: Dictated on workstation # [id number]
[2019-05-05] MEDS ORDERED: cefTRIAXone FOR IV USE 1,000 MG in WATER (STERILE) FOR INJECTION 10 ML IV ONE (20:15)
[2019-05-05] MEDS ORDERED: CEPH500T PO (22:22)
[2019-05-05 22:23] VITALS: BP 102/58
== END 2019-05-05 22:26 | disposition home or self-care (01) ==
LOC: EDUNIT# 17:54 → ER 17:55
DX: N12 Tubulo-interstitial nephritis, not specified as acute or chronic (principal); N39.0 Urinary tract infection, site not specified; E03.9 Hypothyroidism, unspecified; F41.9 Anxiety disorder, unspecified; F32.9 Major depressive disorder, single episode, unspecified; Z87.891 Personal history of nicotine dependence; Z90.89 Acquired absence of other organs
CPT/HCPCS: 36415; 71045; 74177; 80053; 81000; 83605; 84703; 85025; 85610; 85730; 87040; 87077; 87088; 87186; 87804; 96361; 96374; 96375

== ENCOUNTER 2019-05-06 21:57 | Emergency (ER) | payer MEDICAID ==
[~2019-05-06] VITALS: Ht 162 cm; Wt 71.0 kg
[~2019-05-06 21:57] MED LIST changes: +CEPH500T PO
[2019-05-06] MEDS ORDERED: cefTRIAXone FOR IV USE 1,000 MG in WATER (STERILE) FOR INJECTION 10 ML IV ONE (23:00)
[2019-05-06] MEDS ORDERED: ACETAMINOPHEN 500 MG TAB (TYLENOL) PO PRN (23:00)
[2019-05-06] MEDS ORDERED: IBUPROFEN 800 MG (MOTRIN) TAB PO STA (23:00)
[2019-05-06 23:18] LABS: BASOPHILS % (AUTO) 0 % (0-10); EOSINOPHILS % (AUTO) 0 % (0-10); HEMATOCRIT 34 % (35-52); HEMOGLOBIN 11.7 G/DL (11.5-16.0); LYMPHOCYTES # (AUTO) 2.3 X 10^3 (1.0-4.0); LYMPHOCYTES % (AUTO) 21 % (12-44); MEAN CORPUSCULAR HEMOGLOBIN 31 PG (25-34); MEAN CORPUSCULAR HGB CONC 34 G/DL (32-36); MEAN CORPUSCULAR VOLUME 93 FL (80-99); MONOCYTES # (AUTO) 1.2 X 10^3 (0.0-1.0); MONOCYTES % (AUTO) 11 % (0-12); NEUTROPHILS # (AUTO) 7.3 X 10^3 (1.8-7.8); NEUTROPHILS % (AUTO) 68 % (42-75); PLATELET COUNT 223 10^3/uL (130-400); RED CELL DISTRIBUTION WIDTH 12.1 % (10.0-14.5); WHITE BLOOD COUNT 10.9 10^3/uL (4.3-11.0)
[2019-05-06 23:31] LABS: ALANINE AMINOTRANSFERASE 17 U/L (0-55); ALKALINE PHOSPHATASE 62 U/L (40-136); BILIRUBIN,TOTAL 0.6 MG/DL (0.1-1.0); BUN/CREATININE RATIO 13; CALCIUM 9.2 MG/DL (8.5-10.1); CARBON DIOXIDE 21 MMOL/L (21-32); CHLORIDE 107 MMOL/L (98-107); CREATININE SERUM 0.62 MG/DL (0.60-1.30); GFR ESTIMATED > 60; GLUCOSE 90 MG/DL (70-105); POTASSIUM 3.7 MMOL/L (3.6-5.0); SODIUM 138 MMOL/L (135-145); TOTAL PROTEIN 6.9 GM/DL (6.4-8.2)
[2019-05-06] MEDS ORDERED: NS IV 1000 ML 1,000 ML IV SCH (23:32)
[2019-05-06] MEDS ORDERED: LACTATED RINGERS 1,000 ML IV ONE (23:32)
[2019-05-06 23:35] LABS: INR 1.2 (0.8-1.4); PROTHROMBIN TIME PATIENT 15.2 SEC (12.2-14.7)
--- NOTE | 2019-05-07 00:08 | NUR ---
PT'S TEMP ASSESSED TO BE 36.6 TYMPANICALLY. PROVIDER NOTIFIED
[2019-05-07] MEDS ORDERED: LACTATED RINGERS 1,000 ML IV ONE (00:44)
[2019-05-07] MEDS ORDERED: KETOROLAC 30 MG/ML VIAL IVP ONE (00:45)
[2019-05-07] MEDS ORDERED: NS IV 1000 ML 1,000 ML IV ONE (01:07)
[2019-05-07 01:48] LABS: BILIRUBIN,URINE NEGATIVE (NEGATIVE); CLARITY,URINE CLEAR; COLOR,URINE YELLOW; GLUCOSE, URINE (UA) NEGATIVE (NEGATIVE); KETONES,URINE 4+ (NEGATIVE); LEUKOCYTE ESTERASE ,URINE 1+ (NEGATIVE); NITRITE,URINE NEGATIVE (NEGATIVE); PH,URINE 6 (5-9); PROTEIN,URINE NEGATIVE (NEGATIVE); UROBILINOGEN,URINE NORMAL (NORMAL)
[2019-05-07 01:54] LABS: BACTERIA,URINE TRACE /HPF; WBC,URINE 0-2 /HPF
[2019-05-07] MEDS ORDERED: LEVO500T2 PO (01:56)
--- NOTE | 2019-05-07 01:56 | ED General ---
General Chief Complaint: Abdominal/GI Problems Stated Complaint: NECK / BACK PAIN / VISION PROBLEMS Nursing Triage Note: PT PRESENTS FROM HOME, STATES SHE WAS SEEN IN THE ED YESTERDAY FOR FEVER AND LEFT SIDED PAIN THAT ONSET YESTERDAY. WAS SENT HOME WITH PO ANTIBIOTICS AND ADVISED TO RETURN TO THE ED IF SYMPTOMS WORSENED. PT STATES HER PAIN HAS WORSENED, AND SHE HAS BEEN FEELING FEVERISH TODAY. PAIN REMAINS IN L FLANK. Nursing Sepsis Screen: No Definite Risk Source of Information: Patient History of Present Illness Date Seen by Provider: May 06, 2019 Time Seen by Provider: 23:00 Initial Comments PT ARRIVES VIA POV FROM HOME C/O LEFT FLANK PAIN AND FEVER SINCE Monday05/04/19 TEMP WAS 102.5 AT HOME YESTERDAY NO PAIN ON URINATION OR DIFFICULTY URINATING--VOIDED JUST PRIOR TO ARRIVAL. C/O NO APPETITE FOR 3 DAYS, BUT HAS BEEN DRINKING WATER, SOME ORANGE JUICE AND SMOOTHIES NO NAUSEA/VOMITING/DIARRHEA NO ABDOMINAL PAIN NO VAGINAL DISCHARGE PT WAS SEEN HER YESTERDAY FOR THIS PROBLEM AND WAS DX WITH PYELONEPHRITIS STATES TEMP WAS 103.6 WHEN SHE WAS HERE YESTERDAY HAD LAB AND CT SCAN STATES SHE IS "NOT BETTER" TODAY AND IS "STILL RUNNING FEVER" --STATES HER TEMP WAS "94.3" AT HOME TODAY STATES SHE TOOK 1000 MG TYLENOL AT 2150, OTHERWISE HAS NOT TAKEN ANYTHING ELSE FOR SYMPTOMS TODAY STATES SHE HAS LOWER BACK PAIN/ LEFT FLANK PAIN AND MILD HEADACHE NO SICK CONTACTS NO HISTORY OF SIMILAR. PCP: [facility] SAND CONDITIONER: JOSE L ALFARO Allergies and Home Medications Allergies Coded Allergies: No Known Drug Allergies (Unverified , 09/18/14) Home Medications Cephalexin 500 Mg Tablet, 500 MG PO TID Prescribed by: LUIS MIGUEL BLISS on 05/05/192221 Doxycycline Hyclate 100 Mg Tablet, 100 MG PO BID Prescribed by: KASSIE NAYAK on 07/13/18 182 Levofloxacin 500 Mg Tablet, 500 MG PO DAILY Prescribed by: HUBERT VILA on 05/07/19 0156 Ondansetron 8 Mg Tab.rapdis, 8 MG PO Q6H PRN for NAUSEA/VOMITING Prescribed by: HIPOLITO ALBARADO on 10/20/182116 Vit W-Ca,Fe,FA(<1 mg) 1 Each Tablet, 1 TAB PO DAILY, (Reported) Patient Home Medication List Home Medication List Reviewed: Yes Review of Systems Review of Systems Constitutional: see HPI, fever, malaise, weakness EENTM: no symptoms reported Respiratory: no symptoms reported; No cough, No short of breath Cardiovascular: no symptoms reported Gastrointestinal: see HPI; No abdominal pain, No constipation, No diarrhea; loss of appetite; No nausea, No vomiting Genitourinary: see HPI; No decreased output, No discharge, No dysuria, No frequency, No hematuria, No incontinence, No pain; other (FLANK PAIN ) : No LMP: Apr 28, 2019 (HAS IUD IN PLACE) Musculoskeletal: see HPI, back pain Skin: no symptoms reported Psychiatric/Neurological: See HPI, Headache; Denies Numbness, Denies Paresthesia Hematologic/Lymphatic: No Symptoms Reported Immunological/Allergic: no symptoms reported Past [id number]-[id number] Hx Patient Social History Alcohol Use: Past History (HISTORY OF ABUSE/DAILY USE) Recreational Drug Use: Yes (THC, ALSO TESTED + FOR AMPHETAMINES, BENZODIAZEPINES IN THE PAST) Drug of Choice: THC, ALSO TESTED + FOR AMPHETAMINES AND BENZODIAZEPINES IN THE PAST Smoking Status: Former Smoker Type Used: Cigarettes Former Smoker, Quit: Feb 25, 2017 2nd Hand Smoke Exposure: Yes Recent Foreign Travel: No Contact w/Someone Who Travel: No Recent Infectious Disease Expo: No Recent Hopitalizations: No Immunizations Up To Date Tetanus Booster (TDap): Less than 5yrs PED Vaccines UTD: Yes Seasonal Allergies Seasonal Allergies: No Past Medical History Surgeries: Yes Adenoidectomy, Tonsillectomy Respiratory: No Cardiac: No Neurological: No : No Last Menstrual Period: Apr 28, 2019 Hx : 2 (, NO COMPLICATIONS) Hx Para: 1 Hx Total # of Abortions (Sp): 1 Reproductive Disorders: Yes Female Reproductive Disorders: Pelvic Inflammatory Dis SAND CONDITIONER History: IUD Sexually Transmitted Disease: Yes (CHLAMYDIA AT LEAST TWCE) Genitourinary: Yes Bladder Infection Gastrointestinal: No Musculoskeletal: No Endocrine: Yes Hypothyroidsim HEENT: No Cancer: No Psychosocial: Yes Anxiety, Depression Integumentary: No Blood Disorders: No Adverse Reaction/Blood Tranf: No Family Medical History No Pertinent Family Hx Physical Exam Vital Signs Vital Signs - First Documented 05/06/19 22:11 Temp 38.4 Pulse 111 Resp 20 B/P (MAP) 115/79 Pulse Ox 100 O2 Delivery Room Air Capillary Refill : Less Than 3 Seconds Height, Weight, BMI Height: 5'4.50" Weight: 157lbs. 0oz. 71.569603me; 27.00 BMI Method:Stated General Appearance: No Apparent Distress, WD/WN, Other (DOES NOT APPEAR ILL) HEENT: PERRL/EOMI, Moist Mucous Membranes Neck: Full Range of Motion, Normal Inspection, Non Tender, Supple Respiratory: Normal Breath Sounds, No Accessory Muscle Use, No Respiratory Distress Cardiovascular: Regular Rate, Rhythm, No Edema, No JVD, No Murmur, Normal Peripheral Pulses Gastrointestinal: Normal Bowel Sounds, No Pulsatile Mass, Non Tender, Soft Back: No Vertebral Tenderness, CVA Tenderness (L) Extremity: Normal Capillary Refill, Normal Inspection, Normal Range of Motion, Non Tender, No Calf Tenderness, No Pedal Edema Neurologic/Psychiatric: Alert, Oriented x3, No Motor/Sensory Deficits, Normal Mood/Affect, 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 Norm as Tested Skin: Normal Color, Warm/Dry Focused Exam Lactate Level 05/06/19 22:22: Lactic Acid Level 0.61 Lactic Acid Level Progress/Results/Core Measures Suspected Sepsis Recent Fever Within 48 Hours: No Infection Criteria Present: Suspected New Infection New/Unexplained Altered Menta: No Sepsis Screen: No Definite Risk SIRS Temperature: Pulse: 82 Respiratory Rate: 20 Laboratory Tests 05/06/19 22:22: White Blood Count 10.9 Blood Pressure 104 /67 Mean: 79 05/06/19 22:22: Lactic Acid Level 0.61 Laboratory Tests 05/06/19 22:22: Creatinine 0.62, Platelet Count 223, Total Bilirubin 0.6 05/06/19 23:09: INR Comment 1.2 Results/Orders Lab Results Laboratory Tests Test 05/06/19 22:22 05/06/19 23:09 05/07/19 01:42 Range/Units White Blood Count 10.9 4.3-11.0 10^3/uL Red Blood Count 3.72 L 4.35-5.85 10^6/uL Hemoglobin 11.7 11.5-16.0 G/DL Hematocrit 34 L 35-52 % Mean Corpuscular Volume 93 80-99 FL Mean Corpuscular Hemoglobin 31 25-34 PG Mean Corpuscular Hemoglobin Concent 34 32-36 G/DL Red Cell Distribution Width 12.1 10.0-14.5 % Platelet Count 223 130-400 10^3/uL Mean Platelet Volume 10.0 7.4-10.4 FL Neutrophils (%) (Auto) 68 42-75 % Lymphocytes (%) (Auto) 21 12-44 % Monocytes (%) (Auto) 11 0-12 % Eosinophils (%) (Auto) 0 0-10 % Basophils (%) (Auto) 0 0-10 % Neutrophils # (Auto) 7.3 1.8-7.8 X 10^3 Lymphocytes # (Auto) 2.3 1.0-4.0 X 10^3 Monocytes # (Auto) 1.2 H 0.0-1.0 X 10^3 Eosinophils # (Auto) 0.0 0.0-0.3 10^3/uL Basophils # (Auto) 0.0 0.0-0.1 10^3/uL Sodium Level 138 135-145 MMOL/L Potassium Level 3.7 3.6-5.0 MMOL/L Chloride Level 107 98-107 MMOL/L Carbon Dioxide Level 21 21-32 MMOL/L Anion Gap 10 5-14 MMOL/L Blood Urea Nitrogen 8 7-18 MG/DL Creatinine 0.62 0.60-1.30 MG/DL Estimat Glomerular Filtration Rate > 60 BUN/Creatinine Ratio 13 Glucose Level 90 70-105 MG/DL Lactic Acid Level 0.61 0.50-2.00 MMOL/L Calcium Level 9.2 8.5-10.1 MG/DL Corrected Calcium 9.2 8.5-10.1 MG/DL Total Bilirubin 0.6 0.1-1.0 MG/DL Aspartate Amino Transf (AST/SGOT) 19 5-34 U/L Alanine Aminotransferase (ALT/SGPT) 17 0-55 U/L Alkaline Phosphatase 62 40-136 U/L Total Protein 6.9 6.4-8.2 GM/DL Albumin 4.0 3.2-4.5 GM/DL Serum Test, Qualitative NEGATIVE NEGATIVE Prothrombin Time 15.2 H 12.2-14.7 SEC INR Comment 1.2 0.8-1.4 Activated Partial Thromboplast Time 34 24-35 SEC Urine Color YELLOW Urine Clarity CLEAR Urine pH 6 5-9 Urine Specific [place] 1.010 L 1.016-1.022 Urine Protein NEGATIVE NEGATIVE Urine Glucose (UA) NEGATIVE NEGATIVE Urine Ketones 4+ H NEGATIVE Urine Nitrite NEGATIVE NEGATIVE Urine Bilirubin NEGATIVE NEGATIVE Urine Urobilinogen NORMAL NORMAL MG/DL Urine Leukocyte Esterase 1+ H NEGATIVE Urine RBC (Auto) NEGATIVE NEGATIVE Urine RBC NONE /HPF Urine WBC 0-2 /HPF Urine Squamous Epithelial Cells 2-5 /HPF Urine Crystals NONE /LPF Urine Bacteria TRACE /HPF Urine Casts NONE /LPF Urine Mucus NEGATIVE /LPF Urine Culture Indicated CULTURE PENDING Urine Opiates Screen NEGATIVE NEGATIVE Urine Oxycodone Screen NEGATIVE NEGATIVE Urine Methadone Screen NEGATIVE NEGATIVE Urine Propoxyphene Screen NEGATIVE NEGATIVE Urine Barbiturates Screen NEGATIVE NEGATIVE Ur Tricyclic Antidepressants Screen NEGATIVE NEGATIVE Urine Phencyclidine Screen NEGATIVE NEGATIVE Urine Amphetamines Screen NEGATIVE NEGATIVE Urine Methamphetamines Screen NEGATIVE NEGATIVE Urine Benzodiazepines Screen NEGATIVE NEGATIVE Urine Cocaine Screen NEGATIVE NEGATIVE Urine Cannabinoids Screen POSITIVE H NEGATIVE My Orders Orders - HUBERT VILA DO Ed Iv/Invasive Line Start (05/06/19 23:00) Monitor-Rhythm Ecg Trace Only (05/06/19 23:00) Cbc With Automated Diff (05/06/19:00) Comprehensive Metabolic Panel (05/06/19:00) Blood Culture (05/06/19 23:00) Urinalysis (05/06/19 23:00) Urine Culture (05/06/19:00) Protime With Inr (05/06/19:00) Partial Thromboplastin Time (05/06/19:00) Chest 1 View, Ap/Pa Only (05/06/19 23:00) Acetaminophen Tablet (Tylenol Tablet) (05/06/19 23:00) Ed Iv/Invasive Line Start (05/06/19 23:00) Ed Iv/Invasive Line Start (05/06/19 23:00) Vital Signs Adult Sepsis Patie Q15M (05/06/19 23:00) O2 (05/06/19 23:00) Remove Rings In Anticipation O (05/06/19 23:00) Lactic Acid Analyzer (05/06/19 23:00) Ceftriaxone For Iv Use (Rocephin For I (05/06/19 23:00) Ibuprofen Tablet (Motrin Tablet) (05/06/19 23:00) Drug Screen Stat (Urine) (05/06/19 23:00) Hcg,Qualitative Serum (05/06/19 23:00) Ed Iv/Invasive Line Start (05/06/19 23:32) Lactated Ringers (Lr 1000 Ml Iv Solution (05/06/19 23:32) Ns Iv 1000 Ml (Sodium Chloride 0.9%) (05/06/19 23:32) Ketorolac Injection (Toradol Injection) (05/07/19 00:45) Ed Iv/Invasive Line Start (05/07/19 00:44) Lactated Ringers (Lr 1000 Ml Iv Solution (05/07/19 00:44) Ed Iv/Invasive Line Start (05/07/19 01:07) Ns Iv 1000 Ml (Sodium Chloride 0.9%) (05/07/19 01:07) Medications Given in ED Current Medications Medications Dose Ordered Sig/Dot Route Start Time Stop Time Status Last Admin Dose Admin Acetaminophen 1,000 mg ONCE PRN PO 05/06/19 23:00 05/06/19 23:39 DC 05/06/19 23:39 1,000 MG Ceftriaxone Sodium 1000 mg/ Sterile Water 10 ml @ 200 mls/hr ONCE ONCE IV 05/06/19 23:00 05/06/19 23:03 DC 05/06/19 23:11 200 MLS/HR Ketorolac Tromethamine 30 mg ONCE ONCE IVP 05/07/19 00:45 05/07/19 00:46 DC 05/07/19 00:47 30 MG Lactated Ringer's 1,000 ml @ 0 mls/hr Q0M ONCE IV 05/07/19 00:44 05/07/19 00:45 DC 05/07/19 00:51 1,000 MLS/HR Lactated Ringer's 1,000 ml @ 0 mls/hr Q0M ONCE IV 05/06/19 23:32 05/06/19 23:34 DC 05/06/19 23:39 0 MLS/HR Vital Signs/I&O 05/06/19 05/06/19 05/06/19 05/06/19 22:11 22:15 23:00 23:11 Temp 38.4 38.4 38.4 Pulse 111 82 Resp 20 20 B/P (MAP) 115/79 104/67 Pulse Ox 100 100 100 O2 Delivery Room Air Room Air Room Air 05/07/19 02:06 Temp 38.4 Pulse 82 Resp 20 B/P (MAP) 111/87 (79) Pulse Ox 100 O2 Delivery Room Air Capillary Refill : Less Than 3 Seconds Blood Pressure Mean: 79 Progress Note : Progress Note GIVEN IV FLUIDS--BP > 100 AT DISMISSAL TEMP DOWN WITH FLUIDS AND MOTRIN PAIN DECREASED WITH TORADOL GIVEN ROCEPHIN PT STATES SHE FEELS MUCH BETTER CULTURES PENDING FROM YESTERDAY, BUT PRELIMINARY IS E.COLI--NO SUSCEPTIBILITIES YET. Departure Impression Primary Impression: Pyelonephritis Disposition: HOME, SELF-CARE Condition: Improved Departure-Patient Inst. [facility] Patient Instructions: Kidney Infection (DC), Urinary Tract Infection, Adult (DC) Add. Discharge Instructions: INCREASE YOUR FLUIDS--CLEAR LIQUIDS--WATER, BROTH, JELLO, GATORADE DRINK ENOUGH SO YOU ARE URINATING EVERY 2-3 HOURS WHILE AWAKE TYLENOL 1 GRAM 4 TIMES A DAY MOTRIN 800 MG 4 TIMES A DAY FOLLOW UP WITH [facility] IN 2-3 DAYS FOR FURTHER CARE All discharge instructions reviewed with patient and/or family. Voiced understanding. Scripts Levofloxacin (Levaquin) 500 Mg Tablet 500 MG PO DAILY for INFECTION, #10 TAB Prov: HUBERT VILA DO 05/07/19 HUBERT VILA DO May 07, 2019 01:56
[2019-05-07 01:59] LABS: AMPHETAMINE SCREEN, URINE NEGATIVE (NEGATIVE); BARBITURATE SCREEN URINE NEGATIVE (NEGATIVE); BENZODIAZEPINES SCREEN URINE NEGATIVE (NEGATIVE); CANNABINOID SCREEN, URINE POSITIVE (NEGATIVE); COCAINE SCREEN URINE NEGATIVE (NEGATIVE); METHADONE STAT NEGATIVE (NEGATIVE); METHAMPHETAMINE SCREEN URINE S NEGATIVE (NEGATIVE); OPIATE SCREEN URINE NEGATIVE (NEGATIVE); OXYCODONE STAT NEGATIVE (NEGATIVE); PROPOXYPHENE STAT NEGATIVE (NEGATIVE); TRICYCLIC ANTIDEPRESSANTS SCRE NEGATIVE (NEGATIVE)
[2019-05-07 02:06] VITALS: BP 111/87
--- NOTE | 2019-05-07 07:11 | Diagnostic Imaging Report ---
Examination: Chest one view. History: Shortness of breath. Findings: Comparison is 05/05/2019. The lungs are clear. No edema. No pneumonia. No pleural effusion. No pneumothorax. Heart is normal in size. IMPRESSION: 1. Clear lungs. Dictated by: Dictated on workstation # [id number]
== END 2019-05-07 02:06 | disposition home or self-care (01) ==
LOC: EDUNIT# 21:57 → ER 21:58
DX: N12 Tubulo-interstitial nephritis, not specified as acute or chronic (principal); E03.9 Hypothyroidism, unspecified; F41.9 Anxiety disorder, unspecified; F32.9 Major depressive disorder, single episode, unspecified; Z87.891 Personal history of nicotine dependence; Z77.22 Contact with and (suspected) exposure to environmental tobacco smoke (acute) (chronic); Z90.89 Acquired absence of other organs
CPT/HCPCS: 36415; 71045; 80053; 80306; 81000; 83605; 84703; 85025; 85610; 85730; 87040; 87077; 87088; 93041